=== PATIENT | male | born 2005 | race Caucasian/White ===

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

== ENCOUNTER 2023-02-24 22:00 | Emergency (ER) | payer OTHER, SELFPAY ==
[2023-02-24 22:00] VITALS: BP 123/83; PULSE 69; RESP 16; TEMP 36.8; O2SAT 99; BMI 19.8
--- NOTE | 2023-02-24 22:08 | XR_ITS ---
PROCEDURE INFORMATION: Exam: XR Chest Exam date and time: 02/24/2023 10:18 PM Age: 17 years old Clinical indication: Sternal or substernal pain; Additional info: Cp TECHNIQUE: Imaging protocol: Radiologic exam of the chest. Views: 1 view. Total images: 1 COMPARISON: CR XR CHEST 2V 12/21/2022 12:23 AM FINDINGS: Lungs: Nonspecific hyperinflation. No consolidation. No pulmonary vascular congestion or edema. Pleural spaces: Unremarkable. No pleural effusion. No pneumothorax. Heart/Mediastinum: Unremarkable. No cardiomegaly. No mediastinal widening or hilar enlargement. Bones/joints: Unremarkable. IMPRESSION: 1. No radiographically acute cardiopulmonary process. 2. Nonspecific hyperinflation from depth of inspiration versus air trapping/reactive airway disease.
[2023-02-24 22:13] LABS: Basophils % 0.5 % (0.1-2.0); Eosinophils # 0.2 K/mm3 (0.0-0.4); Eosinophils % 3.1 % (0.1-12.0); Hematocrit 53.1 % (42.0-52.0); Hemoglobin 17.8 g/dL (14.1-18.0); Lymphocytes # 1.8 K/mm3 (0.7-4.5); Lymphocytes % 23.5 % (10-50); Mean Corpuscular HGB Conc 33.4 g/dL (31.8-35.4); Mean Corpuscular Hemoglobin 28.8 pg (27.0-31.2); Mean Corpuscular Volume 86.2 fl (80-94); Monocytes # 0.4 K/mm3 (0.1-1.0); Monocytes % 4.7 % (1.7-9.3); Neutrophils # 5.2 K/mm3 (1.8-7.8); Neutrophils % 68.2 % (37.0-80.0); Platelet Count 233 K/mm3 (142-424); Red Blood Count 6.16 M/mm3 (4.60-6.20); Red Cell Distribution Width 12.7 % (11.5-17.5); White Blood Count 7.6 K/mm3 (4.5-13.0)
[2023-02-24 22:21] LABS: Alanine Aminotransferase 26 U/L (12-78); Albumin Level 5.4 g/dl (3.5-5.0); Albumin/Globulin Ratio 2.1 (1.1-1.8); Alkaline Phosphatase 114 U/L (38-126); Anion Gap 14.3 mEq/L (5-15); Aspartate Amino Transferase 35 U/L (17-59); Bilirubin,Total 0.5 mg/dl (0.2-1.3); Blood Urea Nitrogen 15 mg/dl (9-20); Calcium 9.7 mg/dl (8.4-10.2); Carbon Dioxide 27 mmol/L (22.0-30.0); Chloride 106 mmol/L (98-107); Creatinine Clearance Estimated 110 mL/min (50-200); Estimated Glomerular Filt Rate 109 ml/min (>60); GFR (African American) 132 ML/MIN (>60); Globulin 2.6 g/dL (1.3-3.2); Glucose 93 mg/dl (74-100); Potassium 4.3 mmoL/L (3.5-5.1); Sodium 143 mmol/L (136-145)
[2023-02-24 22:30] VITALS: BP 126/82; PULSE 96; RESP 18; O2SAT 98
[2023-02-24 22:35] LABS: Troponin I < 0.01 ng/ml (0.00-0.034)
--- NOTE | 2023-02-24 22:44 | ECG_ITS ---
APPROVED REPORT Exam: Resting ECG HR:104 bpm ECG Measurements Heart Rate 104 AXES SD 140 P 79 QRSd 79 QRS 92 QT 326 T 77 QTc 386 Conclusion SINUS TACHYCARDIA BORDERLINE RIGHT AXIS DEVIATION [QRS AXIS > 90] ABNORMAL RHYTHM ECG UNCONFIRMED REPORT Electronically signed by : William Lao MD 02/25/2023 17:41:09
--- NOTE | 2023-02-24 23:15 | HMH.EDGENADL ---
Discharge Plan Disposition Patient Disposition: Home, Self-Care Condition: Good Chief Complaint: Chest Pain Prescriptions Prescriptions: No Action No Known Home Medications Referrals Follow up/Referrals: William Lao MD [Primary Care Provider] - See instructions Clinical Impressions Clinical Impression: Chest pain, musculoskeletal Instructions Patient Instructions: DI for Chest Pain, DI for Atypical Chest Pain Discharge ED Provider: Trisha Mckeon General Adult HPI General Chief complaint: Chest Pain Stated complaint: CP Time Seen by Provider: 02/24/23 22:33 Mode of Arrival: Ambulatory Source of Information: Patient Limitations: No Limitations Description of Symptoms (Recalled from ER Triage Doc. by RN): pt c/o chest pain and heaviness with radating down both arms that started prior to arrival History of Present Illness HPI narrative: Patient is otherwise healthy who presents to the ED with complaints of chest pain. Patient has had for the past several months, he has been intermittently experiencing the chest pain in the center of his chest which she describes as a sharp, pressure-like sensation. She notes that the chest pain radiates into bilateral upper extremities and has some associated dizziness and lightheadedness with. Patient notes that tonight, he woke up and was having severe chest pain. At this time, patient was brought to the ED for evaluation. 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 Patient denies any prior cardiac history. Related Data Home Medications Medication Instructions Recorded Confirmed No Known Home Medications 08/11/22 12/20/22 Allergies Allergy/AdvReac Type Severity Reaction Status Date / Time azithromycin [From ZITHROMAX] Allergy Mild Verified 09/23/22 10:55 [facility] Disclaimer: The information contained in this section may have been updated after the patient was seen, as this information can be updated by other users. Medical History (Updated 02/24/23 @ 23:21 by Trisha Mckeon MD) Abnormal electrocardiogram [ECG] [EKG] Abnormal stress test Family history of ischemic heart disease Family history of valvular heart disease No significant past medical history No significant past medical history No significant past medical history Family History (Updated 10/05/22 @ 08:44 by Joselyn Bates RN) Other Family history of kidney stone Social History (Updated 10/05/22 @ 08:44 by Joselyn Bates RN) Smoking Status: Current every day smoker alcohol intake: never substance use type: denies use current occupational status: employed and unemployed Travel in the last 8 weeks: None household members: family ROS Obtained: Yes All systems reviewed & no additional complaints except as documented Physical Exam General General appearance: alert and in no apparent distress Head Head exam: atraumatic, normocephalic and normal inspection Eye Eye exam: Present normal appearance, PERRL and EOMI; Absent scleral icterus or nystagmus ENT ENT exam: Present normal exam, mucous membranes moist and normal external ear exam Neck Neck exam: Present normal inspection, full ROM and trachea midline Chest Chest inspection: Present normal inspection, symmetric chest wall rise and tenderness (Central chest wall tenderness) Respiratory Respiratory exam: Present normal lung sounds bilaterally; Absent respiratory distress, wheezes or accessory muscle use Cardiovascular Cardiovascular exam: Present regular rate, normal rhythm and normal heart sounds Abdominal Exam Abdominal exam: Present soft; Absent distention, tenderness, guarding, rebound, rigidity, trauma, ascites or pulsatile mass exam: Present deferred Extremities Exam Extremities exam: Present normal inspection and full ROM; Absent tenderness Back Exam Back exam: Present normal inspection and full ROM; Absent tenderness Neuro
--- NOTE | 2023-02-24 23:29 | PC.NURSE ---
Rounded on pt and updated pt and mother on POC
[2023-02-24 23:44] VITALS: BP 126/82; PULSE 93; RESP 16; TEMP 36.9; O2SAT 98
== END 2023-02-24 23:53 | disposition home or self-care (01) ==
PROVIDERS: Emergency Provider Emergency Medicine; PCP Internal Medicine Adolescent Medicine
DX: R07.89 Other chest pain (principal); M79.601 Pain in right arm; M79.602 Pain in left arm; F17.200 Nicotine dependence, unspecified, uncomplicated
CPT/HCPCS: 71045; 80053; 84484; 85025; 93005; 96374; 99285

== ENCOUNTER 2023-03-04 22:20 | Emergency (ER) | payer OTHER, SELFPAY ==
[2023-03-04 22:22] VITALS: BP 118/78; PULSE 112; RESP 20; TEMP 37; O2SAT 98; BMI 17.6
[2023-03-04 22:25] VITALS: BP 118/78; PULSE 114; O2SAT 98
[2023-03-04 22:35] LABS: POC Glucose,Bedside 104 (70-110)
--- NOTE | 2023-03-04 22:36 | ECG_ITS ---
APPROVED REPORT Exam: Resting ECG HR:110 bpm ECG Measurements Heart Rate 110 AXES MN 128 P 83 QRSd 85 QRS 93 QT 315 T 72 QTc 380 Conclusion SINUS TACHYCARDIA BORDERLINE RIGHT AXIS DEVIATION [QRS AXIS > 90] ABNORMAL RHYTHM ECG UNCONFIRMED REPORT Electronically signed by : William Lao MD 03/05/2023 12:42:30
--- NOTE | 2023-03-04 22:39 | PC.NURSE ---
Pt Glucose 104
[2023-03-04 23:00] VITALS: PULSE 122; O2SAT 99
[2023-03-04 23:15] VITALS: PULSE 112; O2SAT 97
--- NOTE | 2023-03-04 23:23 | HMH.EDGENADL ---
Discharge Plan Disposition Patient Disposition: Home, Self-Care Condition: Good Prescriptions Prescriptions: No Action Vyvanse 40 mg Capsule 40 mg PO DAILY Referrals Follow up/Referrals: William Lao MD [Primary Care Provider] - See instructions Activity Restrictions/Add. Instructions Additional Instructions/Restrictions: Please follow-up with your primary care provider. Please return to the emergency department if you develop any new or worsening symptoms or become concerned for your health. Please remain off work and avoid exertion for the next couple of days. Please push fluids as much as possible and maintain hydration at home. Clinical Impressions Clinical Impression: Acute dehydration, Tremor of both hands, Elevated serum free T4 level Rhabdomyolysis Qualifiers: Rhabdomyolysis type: non-traumatic Qualified Code(s): M62.82 - Rhabdomyolysis Instructions Patient Instructions: DI for Rhabdomyolysis Discharge ED Provider: Bhupinder Jesus Adult HPI General Chief complaint: Extremity Problem,Nontraumatic Stated complaint: shacking, weakness, dizzy Time Seen by Provider: 03/04/23 23:00 Mode of Arrival: Wheelchair Source of Information: Patient Limitations: No Limitations Description of Symptoms (Recalled from ER Triage Doc. by RN): Pt experienced a sudden onset of shaking in his upper body. Pt recently switched ADHD meds from Atomoxetine to Vivance. Pt devleoped immediate chest pain and bilateral numbness in his hands while IV being placed. History of Present Illness HPI narrative: 17-year-old male history of frequent chest pain, extensively worked up by cardiology in clinic, presents with abnormal episode at home today. 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 He reports that he was feeling otherwise normal, may have been dehydrated. Approximately 1 hour prior to my initial evaluation patient was seen by his mother and he reported feeling abnormal. Mom reports that he was looking shaky though talking normally. He then collapsed into her arms, was still talking/mumbling per mom. Patient reports reports that he feels like he blacked out, mom reports that he did not lose consciousness. Patient denies any significant chest pain at the time, reports some dizziness. A few days ago he changed from atomoxetine to Vyvanse for his ADHD. He reports that he took his appropriate dose this morning, 40 mg. Denies any tobacco use, any recent caffeine intake, denies any drug or alcohol use. No recent fever or illness. Patient reports that he has been otherwise healthy, takes no other medications. Related Data Home Medications Medication Instructions Recorded Confirmed lisdexamfetamine 40 mg capsule 40 mg PO DAILY ADHD 03/04/23 03/04/23 (Vyvanse) Allergies Allergy/AdvReac Type Severity Reaction Status Date / Time azithromycin [From ZITHROMAX] Allergy Mild Verified 09/23/22 10:55 [facility] Disclaimer: The information contained in this section may have been updated after the patient was seen, as this information can be updated by other users. Medical History (Updated 03/05/23 @ 00:11 by Bhupinder Jesus MD) Abnormal electrocardiogram [ECG] [EKG] Abnormal stress test Family history of ischemic heart disease Family history of valvular heart disease No significant past medical history No significant past medical history No significant past medical history Family History (Updated 10/05/22 @ 08:44 by Joselyn Bates RN) Other Family history of kidney stone Social History (Updated 10/05/22 @ 08:44 by Joselyn Bates RN) Smoking Status: Never smoker alcohol intake: never substance use type: denies use current occupational status: employed and unemployed Travel in the last 8 weeks: None household members: family ROS Obtained: Yes All systems reviewed & no additional complaints except as documented Physical Exam General Gen
[2023-03-04 23:24] LABS: Basophils % 0.4 % (0.1-2.0); Eosinophils % 0.3 % (0.1-12.0); Hematocrit 48.2 % (42.0-52.0); Hemoglobin 15.9 g/dL (14.1-18.0); Lymphocytes # 1.8 K/mm3 (0.7-4.5); Lymphocytes % 19.8 % (10-50); Mean Corpuscular HGB Conc 33.1 g/dL (31.8-35.4); Mean Corpuscular Hemoglobin 28.3 pg (27.0-31.2); Mean Corpuscular Volume 85.6 fl (80-94); Monocytes # 0.6 K/mm3 (0.1-1.0); Monocytes % 6.5 % (1.7-9.3); Neutrophils # 6.6 K/mm3 (1.8-7.8); Platelet Count 246 K/mm3 (142-424); Red Blood Count 5.63 M/mm3 (4.60-6.20); Red Cell Distribution Width 12.4 % (11.5-17.5)
[2023-03-04 23:28] LABS: Alanine Aminotransferase 26 U/L (12-78); Albumin Level 5.1 g/dl (3.5-5.0); Alkaline Phosphatase 115 U/L (38-126); Anion Gap 16.4 mEq/L (5-15); Aspartate Amino Transferase 53 U/L (17-59); Bilirubin,Total 1.2 mg/dl (0.2-1.3); Blood Urea Nitrogen 15 mg/dl (9-20); Calcium 9.4 mg/dl (8.4-10.2); Carbon Dioxide 26 mmol/L (22.0-30.0); Chloride 102 mmol/L (98-107); Creatine Kinase 1097 U/L (55-170); Creatinine Clearance Estimated 90 mL/min (50-200); Estimated Glomerular Filt Rate 86 ml/min (>60); GFR (African American) 104 ML/MIN (>60); Globulin 2.6 g/dL (1.3-3.2); Glucose 93 mg/dl (74-100); Magnesium 1.9 mg/dl (1.6-2.3); Potassium 3.4 mmoL/L (3.5-5.1); Sodium 141 mmol/L (136-145); Total Protein,Serum 7.7 g/dl (6.3-8.2)
[2023-03-04 23:30] VITALS: PULSE 109; O2SAT 97
[2023-03-04 23:46] LABS: T4 (Thyroxine) 13.4 ug/dl (5.53-11.0)
[2023-03-04 23:59] LABS: Thyroid Stimulating Hormone 0.62 uIU/mL (0.465-4.68)
[2023-03-05 00:07] VITALS: BP 118/78; PULSE 105; RESP 16; TEMP 36.8
== END 2023-03-05 00:30 | disposition home or self-care (01) ==
PROVIDERS: Emergency Medicine; Emergency Provider Emergency Medicine; PCP Internal Medicine Adolescent Medicine
DX: M62.82 Rhabdomyolysis (principal); E86.0 Dehydration; R00.0 Tachycardia, unspecified; F90.9 Attention-deficit hyperactivity disorder, unspecified type
CPT/HCPCS: 80053; 82550; 82962; 83735; 84436; 84443; 85025; 93005; 93041; 96360; 99285

== ENCOUNTER 2023-03-05 14:28 | Observation (INO) | payer OTHER, SELFPAY ==
[2023-03-05] VITALS (7 sets, daily range): BP systolic 120–126; BP diastolic 51–91; PULSE 100–117; RESP 12–20; TEMP 36.3–37.3; O2SAT 97–100; BMI 17.6; BMI 16.2
--- NOTE | 2023-03-05 14:39 | HMH.EDGENADL ---
Discharge Plan Disposition Patient Disposition: Admitted Condition: Fair Clinical Impressions Clinical Impression: Tremor Adverse drug effect Qualifiers: Encounter type: initial encounter Qualified Code(s): T50.905A - Adverse effect of unspecified drugs, medicaments and biological substances, initial encounter Rhabdomyolysis Qualifiers: Rhabdomyolysis type: non-traumatic Qualified Code(s): M62.82 - Rhabdomyolysis Discharge ED Provider: Joaquin Quinn General Adult HPI General Chief complaint: Weakness Stated complaint: Tremors Time Seen by Provider: 03/05/23 14:32 History of Present Illness HPI narrative: Patient is a 17-year-old male with history of ADHD presenting to the emergency department with tremors, difficulty ambulating. History was conducted with the patient as well as the mother of the patient at bedside. Mother reports that he was recently given a prescription for 40 mg of Vyvanse which he started taking on . Patient was evaluated in the emergency department last night with tremors and was found to have an elevated CK level. However, patient had improvement in symptoms and was ultimately discharged home. Patient once again took Vyvanse this morning, has significant worsening of shaking in the bilateral upper extremities, feelings of weakness in the bilateral lower extremities and difficulty ambulating. Because of this, patient was brought back into the emergency department. Patient was very anxious, hyperventilating at the time my initial evaluation, is reporting abnormal sensation in the bilateral upper extremities. He denies any chest pain, shortness of breath, difficulty breathing, fever, chills, nausea, vomiting, abdominal pain. Denies any episodes of syncope. Denies taking any other medications. Denies taking too many of these pills this morning. Denies any recent illnesses. Related Data Home Medications Medication Instructions Recorded Confirmed lisdexamfetamine 40 mg capsule 40 mg PO DAILY ADHD 03/04/23 03/04/23 (Vyvanse) Allergies Allergy/AdvReac Type Severity Reaction Status Date / Time azithromycin [From ZITHROMAX] Allergy Mild Verified 09/23/22 10:55 [facility] Disclaimer: The information contained in this section may have been updated after the patient was seen, as this information can be updated by other users. Medical History (Updated 03/05/23 @ 17:04 by Finn Bray MD) Abnormal electrocardiogram [ECG] [EKG] Abnormal stress test Family history of ischemic heart disease Family history of valvular heart disease No significant past medical history No significant past medical history No significant past medical history Family History (Updated 10/05/22 @ 08:44 by Joselyn Bates RN) Other Family history of kidney stone Social History (Updated 10/05/22 @ 08:44 by Joselyn Bates RN) Smoking Status: Never smoker alcohol intake: never substance use type: denies use current occupational status: employed and unemployed Travel in the last 8 weeks: None household members: family ROS Obtained: Yes All systems reviewed & no additional complaints except as documented Physical Exam General General appearance: alert and anxious Head Head exam: atraumatic and normocephalic ENT ENT exam: Present normal exam Neck Neck exam: Present full ROM Chest Chest inspection: Present normal inspection and symmetric chest wall rise Respiratory Respiratory exam: Present normal lung sounds bilaterally; Absent respiratory distress or accessory muscle use Cardiovascular Cardiovascular exam: Present normal rhythm and tachycardia; Absent regular rate Abdominal Exam Abdominal exam: Present soft; Absent distention, tenderness, guarding or rebound Extremities Exam Extremities exam: Present normal inspection and full ROM Neurological Exam Neurological exam: Present alert, oriented X3, CN II-XII intact, motor sensory deficit (Patient is able to lift his leg off
[2023-03-05 14:43] LABS: Basophils % 0.4 % (0.1-2.0); Eosinophils # 0.1 K/mm3 (0.0-0.4); Hematocrit 48.1 % (42.0-52.0); Hemoglobin 16.8 g/dL (14.1-18.0); Lymphocytes # 1.2 K/mm3 (0.7-4.5); Mean Corpuscular HGB Conc 34.8 g/dL (31.8-35.4); Mean Corpuscular Volume 86.2 fl (80-94); Monocytes # 0.3 K/mm3 (0.1-1.0); Monocytes % 6.2 % (1.7-9.3); Neutrophils # 2.9 K/mm3 (1.8-7.8); Neutrophils % 64.4 % (37.0-80.0); Platelet Count 226 K/mm3 (142-424); Red Blood Count 5.58 M/mm3 (4.60-6.20); Red Cell Distribution Width 12.6 % (11.5-17.5); White Blood Count 4.6 K/mm3 (4.5-13.0)
[2023-03-05 14:50] LABS: Chloride 103 mmol/L (98-107); Potassium 3.6 mmoL/L (3.5-5.1); Sodium 142 mmol/L (136-145)
[2023-03-05 14:52] LABS: Blood Urea Nitrogen 14 mg/dl (9-20); Creatinine Clearance Estimated 124 mL/min (50-200); Estimated Glomerular Filt Rate 125 ml/min (>60); GFR (African American) 151 ML/MIN (>60)
[2023-03-05 14:53] LABS: Alanine Aminotransferase 28 U/L (12-78); Albumin/Globulin Ratio 1.8 (1.1-1.8); Alkaline Phosphatase 120 U/L (38-126); Anion Gap 17.6 mEq/L (5-15); Aspartate Amino Transferase 50 U/L (17-59); Calcium 9.5 mg/dl (8.4-10.2); Carbon Dioxide 25 mmol/L (22.0-30.0); Creatine Kinase 835 U/L (55-170); Globulin 2.8 g/dL (1.3-3.2); Glucose 94 mg/dl (74-100); Total Protein,Serum 7.8 g/dl (6.3-8.2)
[2023-03-05 14:58] LABS: C-Reactive Protein 1.1 mg/L (0-4)
[2023-03-05 15:12] LABS: T4 (Thyroxine) 13.3 ug/dl (5.53-11.0)
[2023-03-05 15:26] LABS: Thyroid Stimulating Hormone 0.44 uIU/mL (0.465-4.68)
[2023-03-05 15:36] LABS: Erythrocyte Sedimentation Rate 1 mm/hr (0-15)
--- NOTE | 2023-03-05 15:50 | PC.NURSE ---
ER MD Bray spoke with poison control, waiting on a call back
--- NOTE | 2023-03-05 16:12 | PC.NURSE ---
requested a lunch tray from dietary.
--- NOTE | 2023-03-05 16:18 | PC.NURSE ---
Dietary brought lunch tray to patient; family at BS
--- NOTE | 2023-03-05 16:21 | PC.NURSE ---
ED MD AT BEDSIDE TO REEVALUATE PT
--- NOTE | 2023-03-05 16:45 | PC.NURSE ---
ED SPEAKING WITH DR ARNOLD FOR ADMISSION
--- NOTE | 2023-03-05 16:54 | PC.NURSE ---
GRISELDA CAMACHO SPEAKING WITH DR BELL
--- NOTE | 2023-03-05 17:00 | PC.NURSE ---
notified warehouser of admission
--- NOTE | 2023-03-05 17:03 | PC.NURSE ---
1701 pt assigned to room 207, Observation patient for adverse medication effect.
--- NOTE | 2023-03-05 17:12 | PC.NURSE ---
REPORT GIVEN TO NASIM LAGUNAS
[2023-03-05 17:45] LABS: Microscopic, Urine URINE MICROSCOPIC (MICROSCOPIC)
[2023-03-05 17:46] LABS: Appearance,Urine CLEAR (Clear); Bilirubin,Urine Negative (Negative); Blood, Urine TRACE-I (Negative); Color,Urine YELLOW (Yellow); Glucose,Urine (UA) Negative (Negative); Ketones,Urine 1+ (Negative); Leukocyte Esterase,Urine Negative (Negative); Nitrate,Urine Negative (Negative); Protein,Urine Negative (Negative)
[2023-03-05 17:57] LABS: RBC,Urine Occasional #/hpf (0-3); Squamous Epithelial Cell,Urine Occasional #/hpf (0-5); WBC,Urine Occasional #/hpf (0-3)
[2023-03-05 17:58] LABS: Barbiturates Screen,Urine Negative ng/ml (<200)
[2023-03-05 17:59] LABS: Amphetamine/Metha Screen,Urine Positive ng/ml (<1000); Benzodiazepines Screen,Urine Negative ng/ml (<200)
[2023-03-05 18:00] LABS: Cannabinoid Screen,Urine Negative ng/ml (<50)
[2023-03-05 18:01] LABS: Cocaine Screen,Urine Negative ng/ml (<300); Methadone Screen,Urine Negative ng/ml (<300)
[2023-03-05 18:02] LABS: Opiate Screen,Urine Negative ng/ml (<300)
[2023-03-05 18:03] LABS: Phencyclidine Screen,Urine Negative ng/ml (<25)
--- NOTE | 2023-03-05 18:47 | EXP.HP ---
History of Present Illness *Admission Date: 03/05/23 *Reason for visit:: tremor, weakness *History of present illness: Wenceslao is a pleasant 17-year-old male who presented to the ER for the second day in a row after developing significant tremor, weakness, tachycardia with recent adjustments in his home medications. States that he has had some chest tightness but no juni chest pain. No shortness of breath, nausea, confusion, diarrhea or vomiting. He is felt very jittery with shaking in his arms and legs. States that he was recently resumed on ADHD meds including atomoxetine back in January. That medication made him irritable so he was switched to lisdexamfetamine on 03/01. He previously been on this medication years ago with fair tolerance. After initiating this medication he has had increased tremors and shaking over the past 3 to 4 days. On arrival to the ER, found to have elevated CK greater than 800. Of note CK yesterday in the ER was greater than 1000. Initiated on IV fluid bolus. Medicine was consulted for admission to monitor overnight with serial labs in the morning and monitoring for improvement in neurologic symptoms. After arriving to the floor, patient is alert and oriented. Afebrile but still tachycardic. Blood pressure within normal range. Family at bedside. Questions answered. [facility] Disclaimer: The information contained in this section may have been updated after the patient was seen, as this information can be updated by other users. Medical History Abnormal electrocardiogram [ECG] [EKG] Abnormal stress test Family history of ischemic heart disease Family history of valvular heart disease Family History Family history of kidney stone Social History Smoking Status: Never smoker alcohol intake: never substance use type: denies use current occupational status: employed Travel in the last 8 weeks: None household members: family Review of Systems Review of Systems Review of systems (narrative): 14 point review of systems performed, pertinent positives and negatives as per HPI Meds Home Medications and Allergies Home Medications Medication Instructions Recorded Confirmed Type lisdexamfetamine 40 mg capsule 40 mg PO DAILY ADHD 03/04/23 03/05/23 History (Vyvanse) New Prescriptions to Start Prescriptions: Allergies Allergy/AdvReac Type Severity Reaction Status Date / Time azithromycin [From ZITHROMAX] Allergy Mild Verified 09/23/22 10:55 Exam Data for Last 24 hours Vital signs and Labs for Last 24 Hours: Temp Pulse Resp BP Pulse Ox O2 Del Method 99.1 F 105 H 18 120/51 L 99 Room Air 03/05/23 17:38 03/05/23 17:38 03/05/23 17:38 03/05/23 17:38 03/05/23 17:38 03/05/23 17:38 Laboratory Results - last 24 hr 03/05/23 14:32: WBC 4.6 D, RBC 5.58, Hgb 16.8, Hct 48.1, MCV 86.2, MCH 30.0, MCHC 34.8, RDW 12.6, Plt Count 226, MPV 7.0 L, Neut % (Auto) 64.4, Lymph % (Auto) 27.0, [place] % (Auto) 6.2, Eos % (Auto) 2.0, Baso % (Auto) 0.4, Neut # (Auto) 2.9, Lymph # (Auto) 1.2, [place] # (Auto) 0.3, Eos # (Auto) 0.1, Baso # (Auto) 0.0, ESR 1, Sodium 142, Potassium 3.6, Chloride 103, Carbon Dioxide 25, Anion Gap 17.6 H, BUN 14, Creatinine 0.80 D, Estimated Creat Clear 124, Estimated GFR 125, Est GFR ( Amer) 151 D, Glucose 94, Calcium 9.5, Total Bilirubin 1.0, AST 50, ALT 28, Alkaline Phosphatase 120, Total Creatine Kinase 835 H*, C-Reactive Protein 1.1, Total Protein 7.8, Albumin 5.0, Globulin 2.8, Albumin/Globulin Ratio 1.8, TSH 0.44 L D, Thyroxine (T4) 13.3 H 03/05/23 15:00: Lactate 1.0 03/05/23 17:39: Urine Color Yellow, Urine Appearance Clear, Urine pH 7.0, Ur Specific Burns 1.010, Urine Protein Negative, Urine Glucose (UA) Negative, Urine Ketones 1+, Urine Blood Trace-i, Urine Nitrate Negative, Urine Bilirubin Negative,
[2023-03-05 22:12] LABS: INR 1.05 (0.9-1.1); Prothrombin Time 11.3 seconds (10.1-12.5)
[2023-03-05 22:23] LABS: D-Dimer 0.46 ug/mL (0.0-0.5)
[2023-03-06] VITALS: BP 133/74; PULSE 106; RESP 20; TEMP 36.5; O2SAT 99
[2023-03-06 04:00] VITALS: BP 116/63; PULSE 112; RESP 20; TEMP 36.4; O2SAT 98; BMI 17.4
[2023-03-06 07:34] LABS: Eosinophils # 0.2 K/mm3 (0.0-0.4); Monocytes # 0.4 K/mm3 (0.1-1.0)
[2023-03-06 07:36] LABS: Anion Gap 8.8 mEq/L (5-15); Blood Urea Nitrogen 8 mg/dl (9-20); Calcium 8.5 mg/dl (8.4-10.2); Carbon Dioxide 25 mmol/L (22.0-30.0); Chloride 111 mmol/L (98-107); Creatine Kinase 388 U/L (55-170); Creatinine Clearance Estimated 125 mL/min (50-200); Estimated Glomerular Filt Rate 125 ml/min (>60); GFR (African American) 151 ML/MIN (>60); Glucose 93 mg/dl (74-100); Potassium 3.8 mmoL/L (3.5-5.1); Sodium 141 mmol/L (136-145)
[2023-03-06 07:41] LABS: Basophils % 0.6 % (0.1-2.0); Eosinophils % 4.5 % (0.1-12.0); Hematocrit 43.8 % (42.0-52.0); Lymphocytes # 2.2 K/mm3 (0.7-4.5); Lymphocytes % 43.4 % (10-50); Mean Corpuscular HGB Conc 32.6 g/dL (31.8-35.4); Mean Corpuscular Volume 85.9 fl (80-94); Mean Platelet Volume 8.2 fl (7.4-10.4); Monocytes % 7.2 % (1.7-9.3); Neutrophils # 2.2 K/mm3 (1.8-7.8); Neutrophils % 44.3 % (37.0-80.0); Platelet Count 196 K/mm3 (142-424); Red Cell Distribution Width 12.8 % (11.5-17.5)
[2023-03-06 07:43] LABS: Hemoglobin 14.3 g/dL (14.1-18.0)
[2023-03-06 07:54] VITALS: BP 104/54; PULSE 77; RESP 18; TEMP 37; O2SAT 98
[2023-03-06 08:00] VITALS: PULSE 72
--- NOTE | 2023-03-06 08:11 | HMH.PHAINT1 ---
Pharmacy Intervention Comments: MEDICATION RECONCILIATION COMPLETED ON PATIENT USING EXTERNAL FILL HISTORY FROM PHARMACY AND [facility]DO REPORT. -HENOK CAMPBELL, PAYTOND
--- NOTE | 2023-03-06 09:28 | EXP.DC.SUM ---
General Admission date:: 03/05/23 Discharge date: 03/06/23 HPI HPI HPI: Wenceslao is a pleasant 17-year-old male who presented to the ER for the second day in a row after developing significant tremor, weakness, tachycardia with recent adjustments in his home medications. States that he has had some chest tightness but no juni chest pain. No shortness of breath, nausea, confusion, diarrhea or vomiting. He is felt very jittery with shaking in his arms and legs. States that he was recently resumed on ADHD meds including atomoxetine back in January. That medication made him irritable so he was switched to lisdexamfetamine on 03/01. He previously been on this medication years ago with fair tolerance. After initiating this medication he has had increased tremors and shaking over the past 3 to 4 days. On arrival to the ER, found to have elevated CK greater than 800. Of note CK yesterday in the ER was greater than 1000. Initiated on IV fluid bolus. Medicine was consulted for admission to monitor overnight with serial labs in the morning and monitoring for improvement in neurologic symptoms. After arriving to the floor, patient is alert and oriented. Afebrile but still tachycardic. Blood pressure within normal range. Family at bedside. Questions answered. Hospital Course Hospital Course Hospital Course: 17-year-old male with recent changes to his ADHD medication, presents with weakness, tremor, minor muscle aches. Admitted for rhabdomyolysis and weakness. Serial labs showed improvement. Hemodynamically stable. Meeting criteria for discharge from acute care. Problems addressed as follows: Rhabdomyolysis Adverse drug effect Tremor -Transitioned to lisdexamfetamine 4 days ago, has had worsening symptoms since starting medication. CK greater than 800, above thousand day before admission. Hydrated aggressively overnight with improvement in CK to 380 on morning of discharge. Kidney function remained normal with creatinine 1.0. Voiding independently. Tolerating p.o. intake. No significant muscle pain on exam. Recommend continuing to hold stimulant medications. Patient concerned as he still has some tremor on day of discharge. Affect is somewhat anxious. Concern anxiety about his health is a significant component of his tremor. His tremor will resolve during conversation and then come back when he stops talking and is thinking about it. Offered significant reassurance. Extensive conversation about work-ups that have been performed over the past 6 to 9 months evaluating his heart, imaging, labs. Encouraged him to establish with new PCP as he is not comfortable going back to his previous provider. Encouraged him to discuss anxiety with his new provider as it is my judgment that this is a significant component of his somatic symptoms at this time. Patient is hemodynamically stable and no longer needing acute inpatient care. Discharged home with his parents today. All questions answered. Spent 40 minutes in discharge counseling and direct care with patient. Exam Data for Last 24 hours Vital signs and Labs for Last 24 Hours: Temp Pulse Resp BP Pulse Ox O2 Del Method 98.6 F 77 18 104/54 L 98 Room Air 03/06/23 07:54 03/06/23 07:54 03/06/23 07:54 03/06/23 07:54 03/06/23 07:54 03/06/23 07:54 Laboratory Results - last 24 hr 03/05/23 14:32: WBC 4.6 D, RBC 5.58, Hgb 16.8, Hct 48.1, MCV 86.2, MCH 30.0, MCHC 34.8, RDW 12.6, Plt Count 226, MPV 7.0 L, Neut % (Auto) 64.4, Lymph % (Auto) 27.0, [place] % (Auto) 6.2, Eos % (Auto) 2.0, Baso % (Auto) 0.4, Neut # (Auto) 2.9, Lymph # (Auto) 1.2, [place] # (Auto) 0.3, Eos # (Auto) 0.1, Baso # (Auto) 0.0, ESR 1, PT 11.3, INR 1.05, D-Dimer 0.46, Sodium 142, Potassium 3.6, Chloride 103, Carbon Dioxide 25, Anion Gap 17.6 H, BUN 14, Creatinine 0.80 D, Estimated Creat Clear 124, Estimated GFR 125, Est GFR ( Amer) 151 D, Glucose 94, Calcium 9.5, Total Bilirubin 1.0, AST 50, ALT 28, Alkaline [place]
--- NOTE | 2023-03-06 10:30 | PC.NURSE ---
PT CONCERNED WITH RETURNING HOME. DR ARNOLD CONTACTED AND MADE AWARE.
[2023-03-06 11:47] VITALS: BP 144/71; PULSE 109; RESP 18; TEMP 36.3; O2SAT 99
--- NOTE | 2023-03-07 13:20 | CARE MANAGER ---
Spoke with patient's father related to hospital discharge. He states he is doing better. He has scheduled appointment with new PCP Dr. Bunn tomorrow. He did stop taking the Vyvanse and denies any questions. NASIM Wilhelm
== END 2023-03-06 13:45 | disposition home or self-care (01) ==
LOC: ER 17:04 → 2ND 18:10
PROVIDERS: Emergency Medicine; Nurse Practitioner Family; Admitting Provider Internal Medicine Adolescent Medicine; Emergency Provider Emergency Medicine; PCP Internal Medicine Adolescent Medicine; Visit Provider Internal Medicine Adolescent Medicine
DX: G25.1 Drug-induced tremor (principal); M62.82 Rhabdomyolysis; T50.905A Adverse effect of unspecified drugs, medicaments and biological substances, initial encounter; T43.625A Adverse effect of amphetamines, initial encounter
CPT/HCPCS: 36415; 80048; 80053; 80305; 81001; 82550; 83605; 84436; 84443; 85025; 85378; 85610; 85651; 86140; 99285; G0378

== ENCOUNTER → 2023-03-08 12:53 | Outpatient (CLI) | payer OTHER, SELFPAY ==
[2023-03-08 14:25] LABS: Free T4 (Free Thyroxine) 1.07 ng/dl (0.78-2.19)
[2023-03-08 21:34] LABS: Thyroid Stimulating Hormone 0.67 uIU/mL (0.465-4.68)
[2023-03-09 11:48] LABS: Triiodothyronine (T3) Total 129 ng/dL (71-180)
== END ==
PROVIDERS: Visit Provider Internal Medicine
DX: R53.83 Other fatigue (principal); R79.89 Other specified abnormal findings of blood chemistry
CPT/HCPCS: 36415; 84439; 84443; 84480

== ENCOUNTER 2023-09-14 00:18 | Emergency (ER) | payer OTHER, SELFPAY ==
[2023-09-14 00:20] VITALS: BP 146/105; PULSE 90; RESP 20; TEMP 36.7; O2SAT 98; BMI 20.2
--- NOTE | 2023-09-14 00:28 | ED_ITS ---
Discharge Plan Disposition Patient Disposition: Home, Self-Care Condition: Good Prescriptions Prescriptions: No Action No Known Home Medications Referrals Follow up/Referrals: Marino Bunn DO [Primary Care Provider] - See instructions Activity Restrictions/Add. Instructions Additional Instructions/Restrictions: Please follow-up with your primary care provider. Please return to the emergency department if you develop any new or worsening symptoms or become concerned for your health. Clinical Impressions Clinical Impression: Chemical exposure of eye Headache Qualifiers: Headache type: unspecified Headache chronicity pattern: acute headache Discharge ED Provider: Bhupinder Jesus General Adult HPI General Chief complaint: Eye Problems Stated complaint: headache, eyes burning Time Seen by Provider: 09/14/23 00:22 History of Present Illness HPI narrative: 17-year-old male presents with bilateral eye pain and headache after possible chemical exposure. They were cleaning chemicals including bleach and Mr. Santiago in the bathroom and it has been recently cleaned with those chemicals. He s tarted taking a shower and he noticed burning in his eyes and started getting a headache. He denies any direct exposure to the chemicals. Reports his vision is okay. Denies any trauma to the eyes. Related Data Home Medications Medication Instructions Recorded Confirmed No Known Home Medications 08/31/23 08/31/23 Allergies Allergy/AdvReac Type Severity Reaction Status Date / Time azithromycin [From ZITHROMAX] Allergy Mild Verified 08/31/23 11:04 [facility] Disclaimer: The information contained in this section may have been updated after the patient was seen, as this information can be updated by other users. Medical History Abnormal electrocardiogram [ECG] [EKG] Abnormal stress test Family history of ischemic heart disease Family history of valvular heart disease Fatigue Generalized anxiety disorder Surgical History History of placement of ear tubes History of tonsillectomy Family History Other Family history of kidney stone Fatigue Social History Smoking Status: Never smoker years smoked: 1 second hand exposure: No alcohol intake: never counseling given: No substance use type: denies use counseling given: No current occupational status: employed Travel in the last 8 weeks: None adopted: No caregiver/support person: No foster care: No household members: family housing: house lives independently: No marital status: single number of children: 0 number of grandchildren: 0 education level: high school Hx Recent Travel: No caffeine: No physical activity: none working smoke detector in home: Yes fire extinguisher in home: Yes carbon monox detector in home: Yes firearms in home: No do you feel safe at home: Yes victim of physical abuse: No victim of emotional abuse: No victim of sexual abuse: No would you like helpful sources: No ROS Obtained: Yes All systems reviewed & no additional complaints except as documented Physical Exam General General appearance: alert and in no apparent distress Head Head exam: atraumatic and normocephalic Eye Eye exam: Present normal appearance, PERRL and EOMI; Absent conjunctival injection ENT ENT exam: Present normal oropharynx and normal external ear exam Neck Neck exam: Present normal inspection and full ROM Chest Chest inspection: Present normal inspection and symmetric chest wall rise; Absent tenderness Respiratory Respiratory exam: Present normal lung sounds bilaterally; Absent respiratory distress Cardiovascular Cardiovascular exam: Present regular rate and normal rhythm Abdominal Exam Abdominal exam: Present soft; Absent distention, tenderness or guarding Extremities Exam Extremities exam: Present normal inspection; Absent edema or joint swelling Back Exam Back exam: Present normal inspection; Absent tenderness Neurological Exam Neurological exam: Present alert and oriented X3; Absent motor sensory deficit Psychiatric Psychiatric exam: Present normal affect and normal mood Skin Skin exam: Present warm, dry and normal color Lymphatic Lymphatic Findings: no adenopathy Medical Decision Making Medical Records Medical records reviewed: Yes I reviewed the patient's medical records. Baldemar Inquiry Pt receiving controlled substance: No Baldemar was queried for this patient: No Vital Signs: 09/14/23 00:20 09/14/23 00:46 Temperature 98.1 F 98.1 F Temperature Source Oral Oral Pulse Rate 80 Pulse Rate [Right Radial] 90 Respiratory Rate 20 18 Blood Pressure 125/72 Blood Pressure [Right Arm] 146/105 H Blood Pressure Mean [Right Arm] 118 Blood Pressure Source Automatic Cuff Blood Pressure Source [Right Arm] Automatic Cuff Blood Pressure Position Supine Blood Pressure Position [Right Arm] Sitting 02 Sat by Pulse Oximetry 98 Oxygen Delivery Method Room Air Room Air Lab Data Lab results reviewed: Yes I reviewed the patient's lab results. Orders (Tests/Meds): ED MEDICATIONS Discontinued Medications Generic Name Dose Route Start Last Admin Trade Name Urbano PRN Reason Stop Dose Admin Acetaminophen 1,000 mg 09/14/23 00:28 09/14/23 00:41 Acetaminophen 500mg Tab PO 09/14/23 00:29 1,000 mg ONCE ONE Administration Ibuprofen 600 mg 09/14/23 00:28 09/14/23 00:41 Ibuprofen 600 Mg Tablet PO 09/14/23 00:29 600 mg ONCE ONE Administration Medical Decision Narrative: 17-year-old male with no significant past medical history presents with possible chemical exposure to the eyes. He was in the same room as an open container of bleach and Mr. Santiago. His eyes started burning when he took a shower. He denies any direct contact with chemicals. Differential diagnosis includes but limited to acid exposure, base exposure, trauma. on arrival exam shows no conjunctival injection, normal visual acuity. pH paper bilaterally shows normal pH, no evidence of acid-base disturbance. Patient's eyes were copiously irrigated in the eyewash station after which she reported complete symptomatic resolution. Patient was given Tylenol ibuprofen for his headache and discharged in stable condition with return precautions. Procedures Risk/Benefits of Procedure(s) Were Explained: Yes Critical Care Critical Care Time Critical Care Time: No
[2023-09-14] MEDS: ACETAMINOPHEN 500MG TAB 1000 MG PO (00:41)
[2023-09-14] MEDS: IBUPROFEN 600 MG TABLET PO (00:41)
[2023-09-14 00:46] VITALS: BP 125/72; PULSE 80; RESP 18; TEMP 36.7; O2SAT 99
== END 2023-09-14 00:51 | disposition home or self-care (01) ==
PROVIDERS: Emergency Provider Emergency Medicine; PCP Internal Medicine
DX: R51.9 Headache, unspecified (principal); H57.13 Ocular pain, bilateral; T59.4X1A Toxic effect of chlorine gas, accidental (unintentional), initial encounter
CPT/HCPCS: 99283

== ENCOUNTER 2024-09-02 17:48 | Emergency (ER) | payer OTHER, SELFPAY ==
[2024-09-02 17:51] VITALS: BP 132/68; PULSE 102; RESP 16; TEMP 36.8; O2SAT 98; BMI 19.0
[2024-09-02 18:01] VITALS: BP 123/81; O2SAT 95
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
[2024-09-02] MEDS: ACETAMINOPHEN 500MG TAB 1000 MG PO (18:25)
[2024-09-02] MEDS: IBUPROFEN 400 MG TABLET 800 MG PO (18:26)
[2024-09-02] MEDS: METOCLOPRAMIDE 10MG TABLET 10 MG PO (18:26)
[2024-09-02 18:30] VITALS: BP 138/78; PULSE 81; O2SAT 98
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
[2024-09-02 19:00] VITALS: BP 117/74; PULSE 69; O2SAT 98
--- NOTE | 2024-09-02 19:25 | PC.NURSE ---
rounded on patient and assess any needs at this time
[2024-09-02 19:31] VITALS: BP 110/70; PULSE 79; O2SAT 98
[2024-09-02 20:23] VITALS: BP 128/78; PULSE 89; RESP 20; TEMP 36.6; O2SAT 99
== END 2024-09-02 20:25 | disposition home or self-care (01) ==
PROVIDERS: Emergency Provider Emergency Medicine; PCP Internal Medicine
DX: S06.0XAA Concussion with loss of consciousness status unknown, initial encounter (principal); S01.81XA Laceration without foreign body of other part of head, initial encounter; R51.9 Headache, unspecified; R42 Dizziness and giddiness; H53.8 Other visual disturbances; F17.290 Nicotine dependence, other tobacco product, uncomplicated; W20.8XXA Other cause of strike by thrown, projected or falling object, initial encounter; Y93.89 Activity, other specified; Y92.9 Unspecified place or not applicable
CPT/HCPCS: 70450; 70486; 99284

== ENCOUNTER 2024-10-25 22:27 | Emergency (ER) | payer OTHER, SELFPAY ==
--- NOTE | 2024-10-25 22:27 | ECG_ITS ---
APPROVED REPORT Exam: Resting ECG HR:98 bpm ECG Measurements Heart Rate 98 AXES VT 138 P 82 QRSd 81 QRS 89 QT 318 T 66 QTc 373 Conclusion SINUS RHYTHM NORMAL ECG Electronically signed by : CHRISTIAN BARRAZA, 10/27/2024 03:23:26
[2024-10-25 22:28] VITALS: BP 136/87; PULSE 107; RESP 14; TEMP 36.6; O2SAT 98; BMI 19.0
--- NOTE | 2024-10-25 22:30 | PC.NURSE ---
Pt undressed and belongings removed from room and searched for weapons. None found. room cleared and patient in gown
--- NOTE | 2024-10-25 22:45 | PC.NURSE ---
Pt in sinus tachycardia per continuous heart monitor
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
--- NOTE | 2024-10-25 22:53 | XR_ITS ---
PROCEDURE INFORMATION: Exam: XR Chest Exam date and time: 10/25/2024 10:59 PM Age: 19 years old Clinical indication: Dyspnea TECHNIQUE: Imaging protocol: Radiologic exam of the chest. Views: 1 view. COMPARISON: CR XR CHEST PORTABLE 02/24/2023 10:18 PM FINDINGS: Lungs: Redemonstration of background hyperinflation/emphysema. No evidence of consolidative opacities. Pleural spaces: No pleural effusion. No pneumothorax. Heart/Mediastinum: The cardiomediastinal silhouette is stable in appearance. Bones/joints: Unremarkable. IMPRESSION: 1. No evidence of acute radiographic findings in the chest. 2. Redemonstration of hyperinflation/emphysema.
--- NOTE | 2024-10-25 22:53 | PC.NURSE ---
One on one sitter provided due to patient's homicidal and suicidal statements
--- NOTE | 2024-10-25 22:54 | ED_ITS ---
Discharge Plan Disposition Chief Complaint: Chest Pain Prescriptions Prescriptions: No Action metoclopramide HCl [Reglan] 10 mg tablet 10 mg PO Q6H PRN (Reason: nausea and vomiting) Qty: 10 0RF Clinical Impressions Clinical Impression: Chest pain, Homicidal ideation, Suicidal ideation Stand Alone Forms Stand Alone Forms: Transfer Record - ED Print Language Print Language: Indonesian Discharge ED Provider: Bhupinder Jesus General Adult HPI <Kodak Tan MD - Last Filed: 10/25/24 22:59> General Chief complaint: Chest Pain Stated complaint: chest pain Time Seen by Provider: 10/25/24 22:51 Mode of Arrival: Ambulatory Source of Information: Patient Description of Symptoms (Recalled from ER Triage Doc. by RN): pt presents with chest pain that began approx 30 mins ago with no radiation. History of Present Illness HPI narrative: Patient is a 19-year-old male who initially presented to the emergency department under my evaluation and told me that he was having chest pain. States that it started 30 minutes prior to arrival. No radiation. No exertional dyspnea. No diaphoresis. Patient denies any drug use. However police arrived at the same time that the patient arrives as they were given a call for active shooter. They had guns drawn and the description of the suspect was the patient that we are taking care of, [place]. Initially the patient denied being involved in any of this. However a bystander pointed out that the patient was screaming and yelling homicidal and suicidal statements in the parking lot. This is what prompted the call to the police. The patient is currently denying being homicidal or suicidal to me at the moment. Related Data Previous Rx's ?Medication ?Instructions ?Recorded metoclopramide HCl 10 mg tablet 10 mg PO Q6H PRN nausea and 09/02/24 (Reglan) vomiting #10 tabs Allergies Allergy/AdvReac Type Severity Reaction Status Date / Time azithromycin (From ZITHROMAX) Allergy Mild Rash Verified 09/02/24 18:22 PFSH <Kodak Tan MD - Last Filed: 10/25/24 22:59> PFS Disclaimer: The information contained in this section may have been updated after the patient was seen, as this information can be updated by other users. Medical History Generalized anxiety disorder Fatigue Abnormal stress test Family history of valvular heart disease Family history of ischemic heart disease Abnormal electrocardiogram [ECG] [EKG] Surgical History History of tonsillectomy History of placement of ear tubes Family History Other Family history of kidney stone Fatigue Social History Smoking Status: Never smoker years smoked: 1 second hand exposure: No alcohol intake: never counseling given: No substance use type: denies use counseling given: No current occupational status: employed Travel in the last 8 weeks: None adopted: No caregiver/support person: No foster care: No household members: family housing: house lives independently: No marital status: single number of children: 0 number of grandchildren: 0 education level: high school Hx Recent Travel: No caffeine: No physical activity: none working smoke detector in home: Yes fire extinguisher in home: Yes carbon monox detector in home: Yes firearms in home: No do you feel safe at home: Yes victim of physical abuse: No victim of emotional abuse: No victim of sexual abuse: No would you like helpful sources: No Have you lived/traveled outside US in past 30 days?: No Contact w/someone who lives/traveled outside US past 30 days?: No Exposure to someone with infectious disease in past 14 days?: No Do you have a fever (greater than 100.4 F or 38 C)?: No Have you tested positive for COVID-19: No Exposed to someone with COVID-19 in past 14 days?: No Do you have a sore throat?: No Do you have a cough?: No Do you have any weakness?: No Do you have any diarrhea?: No Are you experiencing any unusual bleeding?: No Do you have any muscle aches/pain?: No Do you have any abdominal pain?: No Are you experiencing loss of taste or smell?: No Other Medical History Have you received the Flu Vaccine for this season: No Have you received the Pneumonia Vaccine: No <Kodak Tan MD - Last Filed: 10/25/24 22:59> ROS Obtained: Yes All systems reviewed & no additional complaints except as documented Physical Exam <Kodak Tan MD - Last Filed: 10/25/24 22:59> General General appearance: alert and in no apparent distress Respiratory Respiratory exam: Present normal lung sounds bilaterally Cardiovascular Cardiovascular exam: Present regular rate and normal rhythm Neurological Exam Neurological exam: Present alert and oriented X3 Medical Decision Making <Kdoak Tan MD - Last Filed: 10/25/24 22:59> Medical Records Screening: Per USPSTF and CDC recommendations, given the prevalence of disease in our region, it is our hospital?s policy to screen for HIV and viral Hepatitis for all patients aged 18 and over and those with ongoing risk factors. Baldemar Inquiry Pt receiving controlled substance: No Vital Signs: 10/25/24 22:28 10/25/24 23:00 10/25/24 23:28 Temperature 98 F 98.0 F Temperature Source Oral Oral Pulse Rate 103 H 94 H Pulse Rate [Radial] 107 H Respiratory Rate 14 17 16 Blood Pressure 129/85 129/85 Blood Pressure [Right Arm] 136/87 Blood Pressure Mean 97 Blood Pressure Mean [Right Arm] 103 Blood Pressure Source Automatic Cuff Blood Pressure Position Sitting Blood Pressure Position [Right Arm] Sitting 02 Sat by Pulse Oximetry 98 98 98 Oxygen Delivery Method Room Air Room Air 10/25/24 23:53 Temperature 98.0 F Temperature Source Oral Pulse Rate 96 H Pulse Rate [Radial] Respiratory Rate 16 Blood Pressure 136/86 Blood Pressure [Right Arm] Blood Pressure Mean Blood Pressure Mean [Right Arm] Blood Pressure Source Automatic Cuff Blood Pressure Position Supine Blood Pressure Position [Right Arm] 02 Sat by Pulse Oximetry 97 Oxygen Delivery Method Room Air Lab Data Lab Results 10/25/24 22:30: WBC 6.4, RBC 5.47, Hgb 16.2, Hct 45.7, MCV 83.5, MCH 29.6, MCHC 35.4, RDW 11.2 L, Plt Count 239, MPV 10.2, Neut % (Auto) 53.3, Lymph % (Auto) 27.7, Cotton % (Auto) 9.4 H, Eos % (Auto) 8.2, Baso % (Auto) 1.1, Neut # (Auto) 3.4, Lymph # (Auto) 1.8, Cotton # (Auto) 0.6, Eos # (Auto) 0.5 H, Baso # (Auto) 0.1, Sodium 141, Potassium 3.7, Chloride 106, Carbon Dioxide 25, Anion Gap 13.7, BUN 14, Creatinine 1.00, Estimated Creat Clear 105, Estimated GFR 94, Est GFR ( Amer) 114, Glucose 102 H, Calcium 9.5, Total Bilirubin 0.6, AST 31, ALT 20, Alkaline Phosphatase 74, Troponin I < 0.01, Total Protein 6.9, Albumin 4.8, Globulin 2.1, Albumin/Globulin Ratio 2.3 H, Plasma/Serum Alcohol < 10 10/25/24 23:15: Urine Opiates Screen Negative, Urine Methadone Screen Negative, Ur Barbituates Screen Negative, Ur Phencyclidine Scrn Negative, Ur Amphetamines Screen Negative, U Benzodiazepines Scrn Negative, Urine Cocaine Screen Negative, U Marijuana (THC) Screen Negative 10/25/24 22:30 10/25/24 22:30 Orders (Tests/Meds): ED MEDICATIONS Discontinued Medications Generic Name Dose Route Start Last Admin Trade Name Freq PRN Reason Stop Dose Admin Lactated Ringer's 1,000 mls @ 999 mls/hr 10/25/24 23:00 10/25/24 23:01 Lactated Ringer's 1000 Ml Bag IV 10/26/24 00:00 999 mls/hr .Q1H1M ROSETTE Administration ORDERS Category Date Time Status CXR --portable [XR chest portable] Stat Exams 10/25/24 22:53 Completed CBC w/Auto Diff [Complete Blood Count Auto Diff] Stat Lab 10/25/24 22:30 Completed CMP [Comprehensive Metabolic Panel] Stat Lab 10/25/24 22:30 Completed Ethanol [Ethyl Alcohol] Stat Lab 10/25/24 22:30 Completed Trop I [Troponin I] Stat Lab 10/25/24 22:30 Completed Troponin I Q3H Lab 10/26/24 02:00 Ordered Troponin I Q3H Lab 10/26/24 05:00 Ordered UDS [Drug Screen,Urine] Stat Lab 10/25/24 23:15 Completed Medical Decision Narrative: 19-year-old with above history and physical initially to me telling me he is here for chest pain. Seems to be very low risk we will get an EKG single troponin he is PERC negative on my evaluation. Seems to be very low risk from a chest pain standpoint. However complicating things the police showed up being called for an active shooter situation. To my knowledge there were no shots that were fired. The description of the suspect matches Wenceslao. Additionally there was a bystander to whom I spoke to as well who stated that the patient was screaming profanities and the parking lot stating I am going to fuck you up, going here and shoot everybody and then kill myself. The patient denies saying these things. Police are currently here. At the moment we believe the remainder of the situation is cleared but the patient is currently on a one-to-one hold for possible suicidal and homicidal ideation. Initial workup is initiated. Patient showed up right at shift change and care was transitioned to Dr. Bhupinder Jesus at 11 PM. The police are still in the emergency department at the moment. The patient at the moment has been very cooperative and has not been aggressive. <Bhupinder Jesus MD - Last Filed: 10/26/24 00:44> Vital Signs: 10/25/24 22:28 10/25/24 23:00 10/25/24 23:28 Temperature 98 F 98.0 F Temperature Source Oral Oral Pulse Rate 103 H 94 H Pulse Rate [Radial] 107 H Respiratory Rate 14 17 16 Blood Pressure 129/85 129/85 Blood Pressure [Right Arm] 136/87 Blood Pressure Mean 97 Blood Pressure Mean [Right Arm] 103 Blood Pressure Source Automatic Cuff Blood Pressure Position Sitting Blood Pressure Position [Right Arm] Sitting 02 Sat by Pulse Oximetry 98 98 98 Oxygen Delivery Method Room Air Room Air 10/25/24 23:53 Temperature 98.0 F Temperature Source Oral Pulse Rate 96 H Pulse Rate [Radial] Respiratory Rate 16 Blood Pressure 136/86 Blood Pressure [Right Arm] Blood Pressure Mean Blood Pressure Mean [Right Arm] Blood Pressure Source Automatic Cuff Blood Pressure Position Supine Blood Pressure Position [Right Arm] 02 Sat by Pulse Oximetry 97 Oxygen Delivery Method Room Air Lab Data Lab Results 10/25/24 22:30: WBC 6.4, RBC 5.47, Hgb 16.2, Hct 45.7, MCV 83.5, MCH 29.6, MCHC 35.4, RDW 11.2 L, Plt Count 239, MPV 10.2, Neut % (Auto) 53.3, Lymph % (Auto) 27.7, Cotton % (Auto) 9.4 H, Eos % (Auto) 8.2, Baso % (Auto) 1.1, Neut # (Auto) 3.4, Lymph # (Auto) 1.8, Cotton # (Auto) 0.6, Eos # (Auto) 0.5 H, Baso # (Auto) 0.1, Sodium 141, Potassium 3.7, Chloride 106, Carbon Dioxide 25, Anion Gap 13.7, BUN 14, Creatinine 1.00, Estimated Creat Clear 105, Estimated GFR 94, Est GFR ( Amer) 114, Glucose 102 H, Calcium 9.5, Total Bilirubin 0.6, AST 31, ALT 20, Alkaline Phosphatase 74, Troponin I < 0.01, Total Protein 6.9, Albumin 4.8, Globulin 2.1, Albumin/Globulin Ratio 2.3 H, Plasma/Serum Alcohol < 10 10/25/24 23:15: Urine Opiates Screen Negative, Urine Methadone Screen Negative, Ur Barbituates Screen Negative, Ur Phencyclidine Scrn Negative, Ur Amphetamines Screen Negative, U Benzodiazepines Scrn Negative, Urine Cocaine Screen Negative, U Marijuana (THC) Screen Negative Orders (Tests/Meds): ED MEDICATIONS Discontinued Medications Generic Name Dose Route Start Last Admin Trade Name Freq PRN Reason Stop Dose Admin Lactated Ringer's 1,000 mls @ 999 mls/hr 10/25/24 23:00 10/25/24 23:01 Lactated Ringer's 1000 Ml Bag IV 10/26/24 00:00 999 mls/hr .Q1H1M ROSETTE Administration ORDERS Category Date Time Status CXR --portable [XR chest portable] Stat Exams 10/25/24 22:53 Completed CBC w/Auto Diff [Complete Blood Count Auto Diff] Stat Lab 10/25/24 22:30 Completed CMP [Comprehensive Metabolic Panel] Stat Lab 10/25/24 22:30 Completed Ethanol [Ethyl Alcohol] Stat Lab 10/25/24 22:30 Completed Trop I [Troponin I] Stat Lab 10/25/24 22:30 Completed Troponin I Q3H Lab 10/26/24 02:00 Ordered Troponin I Q3H Lab 10/26/24 05:00 Ordered UDS [Drug Screen,Urine] Stat Lab 10/25/24 23:15 Completed ECG Data Tracing #1: I reviewed this ECG and interpreted as documented below: ECG initial impression date: 10/25/24 ECG initial impression time: 22:30 ECG normal with no acute: arrhythmias, ischemia, conduction abnormalities, chamber hypertrophy Normal Sinus Rhythm: Yes Medical Decision Narrative: 19-year-old with above history and physical initially to me telling me he is here for chest pain. Seems to be very low risk we will get an EKG single troponin he is PERC negative on my evaluation. Seems to be very low risk from a chest pain standpoint. However complicating things the police showed up being called for an active shooter situation. To my knowledge there were no shots that were fired. The description of the suspect matches Wenceslao. Additionally there was a bystander to whom I spoke to as well who stated that the patient was screaming profanities and the parking lot stating I am going to fuck you up, going here and shoot everybody and then kill myself. The patient denies saying these things. Police are currently here. At the moment we believe the remainder of the situation is cleared but the patient is currently on a one-to-one hold for possible suicidal and homicidal ideation. Initial workup is initiated. Patient showed up right at shift change and care was transitioned to Dr. Bhupinder Jesus at 11 PM. The police are still in the emergency department at the moment. The patient at the moment has been very cooperative and has not been aggressive. Ann Marie CAMACHO: I assumed care of the patient at the time of handoff from the prior provider. On reassessment patient is hemodynamically stable. Chest pain workup is unremarkable on my independent interpretation including, negative initial troponin, no electrolyte derangements, no leukocytosis. Chest x-ray independently turbid by me shows no focal opacities. Urine drug screen is negative. I spoke over the phone with Vincent Black. His phone number is [phone]. He drove the patient to the hospital to be evaluated for his chest pain initially. He attests that he did hear the patient threatened to kill himself, though he does not attest to any of the other statements that were supposedly made. I also spoke with the Dr. Tan who reports that he was told by the standard that the patient made these threatening statements regarding suicide and homicide. As a result, I do not think that patient is safe or appropriate for discharge at this time, even though he denies any suicidal or homicidal ideation currently. I spoke with the patient extensively regarding his presentation. He reports his chest pain is essentially resolved. He reports that that he has been treated at [facility] in the past for suicidal ideation but denies any issues at this time, is not on any psychiatric medications. He is agreeable to further psychiatric evaluation. I called and spoke with the empath unit at [facility] who accepted him for further evaluation. Accepting physician is Dr. Parr. Critical Care <Kodak Tan MD - Last Filed: 10/25/24 22:59> Critical Care Time Critical Care Time: No <Bhupinder Jesus MD - Last Filed: 10/26/24 00:44> Critical Care Time Critical Care Time: No
--- NOTE | 2024-10-25 22:57 | PC.NURSE ---
Pt visibly shaking on arrival now states he was arguing with girlfriend prior to arrival. Chest pain began prior to argument according to patient
--- NOTE | 2024-10-25 22:59 | PC.NURSE ---
CXR done at bedside
[2024-10-25 23:00] VITALS: BP 129/85; PULSE 103; RESP 17; O2SAT 98
[2024-10-25] MEDS: LACTATED RINGERS 1000ML 1,000 ML 999 ML IV (23:01)
[2024-10-25 23:04] LABS: Basophils # 0.1 K/mm3 (0-0.2); Basophils % 1.1 % (0.1-2.0); Eosinophils # 0.5 K/mm3 (0.0-0.4); Eosinophils % 8.2 % (0.1-12.0); Hematocrit 45.7 % (42.0-52.0); Hemoglobin 16.2 g/dL (14.1-18.0); Lymphocytes # 1.8 K/mm3 (0.7-4.5); Lymphocytes % 27.7 % (10-50); Mean Corpuscular HGB Conc 35.4 g/dL (31.8-35.4); Mean Corpuscular Hemoglobin 29.6 pg (27.0-31.2); Mean Corpuscular Volume 83.5 fl (80-94); Mean Platelet Volume 10.2 fl (7.4-10.4); Monocytes # 0.6 K/mm3 (0.1-1.0); Monocytes % 9.4 % (1.7-9.3); Neutrophils # 3.4 K/mm3 (1.8-7.8); Neutrophils % 53.3 % (37.0-80.0); Platelet Count 239 K/mm3 (142-424); Red Blood Count 5.47 M/mm3 (4.60-6.20); Red Cell Distribution Width 11.2 % (11.5-17.5); White Blood Count 6.4 K/mm3 (4.8-10.8)
[2024-10-25 23:05] LABS: Albumin Level 4.8 g/dl (3.5-5.0); Chloride 106 mmol/L (98-107); Potassium 3.7 mmoL/L (3.5-5.1); Sodium 141 mmol/L (136-145)
[2024-10-25 23:08] LABS: Alanine Aminotransferase 20 U/L (12-78); Albumin/Globulin Ratio 2.3 (1.1-1.8); Alkaline Phosphatase 74 U/L (38-126); Anion Gap 13.7 mEq/L (5-15); Aspartate Amino Transferase 31 U/L (17-59); Bilirubin,Total 0.6 mg/dl (0.2-1.3); Blood Urea Nitrogen 14 mg/dl (9-20); Calcium 9.5 mg/dl (8.4-10.2); Carbon Dioxide 25 mmol/L (22.0-30.0); Creatinine Clearance Estimated 105 mL/min (50-200); Estimated Glomerular Filt Rate 94 ml/min (>60); GFR (African American) 114 ML/MIN (>60); Globulin 2.1 g/dL (1.3-3.2); Glucose 102 mg/dl (74-100); Total Protein,Serum 6.9 g/dl (6.3-8.2)
[2024-10-25 23:11] LABS: Ethyl Alcohol < 10 mg/dl (0-10)
--- NOTE | 2024-10-25 23:13 | PC.NURSE ---
urine collected and sent to lab
[2024-10-25 23:25] LABS: Troponin I < 0.01 ng/ml (0.00-0.034)
[2024-10-25 23:28] VITALS: BP 129/85; PULSE 94; RESP 16; TEMP 36.7; O2SAT 98
[2024-10-25 23:41] LABS: Methadone Screen,Urine Negative ng/ml (<300)
[2024-10-25 23:42] LABS: Cannabinoid Screen,Urine Negative ng/ml (<50)
[2024-10-25 23:43] LABS: Cocaine Screen,Urine Negative ng/ml (<300); Opiate Screen,Urine Negative ng/ml (<300)
[2024-10-25 23:44] LABS: Phencyclidine Screen,Urine Negative ng/ml (<25)
--- NOTE | 2024-10-25 23:50 | PC.NURSE ---
Pt states he has been a patient at [facility] in the past and making statements like I'm not going back there
[2024-10-25 23:53] VITALS: BP 136/86; PULSE 96; RESP 16; TEMP 36.7; O2SAT 97
[2024-10-25 23:53] LABS: Amphetamine/Metha Screen,Urine Negative ng/ml (<1000); Barbiturates Screen,Urine Negative ng/ml (<200)
[2024-10-25 23:54] LABS: Benzodiazepines Screen,Urine Negative ng/ml (<200)
--- NOTE | 2024-10-25 23:59 | PC.NURSE ---
IV fluids complete
--- NOTE | 2024-10-26 00:22 | PC.NURSE ---
Spoke with Fermin about reaching out to impath about this patient
--- NOTE | 2024-10-26 00:56 | PC.NURSE ---
[facility] Pt cooperative
[2024-10-26 00:57] VITALS: BP 136/86; PULSE 96; RESP 16; TEMP 36.7; O2SAT 98
== END 2024-10-26 00:58 | disposition short-term general hospital (02) ==
PROVIDERS: Student in an Organized Health Care Education/Training Program; Emergency Provider Emergency Medicine
DX: R07.9 Chest pain, unspecified (principal); R45.850 Homicidal ideations; R45.851 Suicidal ideations
CPT/HCPCS: 71045; 80053; 80307; 80320; 84484; 85025; 93005; 96360; 99285; J7120

== ENCOUNTER 2025-01-28 19:15 | Emergency (ER) | payer OTHER, SELFPAY ==
--- OUTSIDE RECORDS SUMMARY | 2024-10-27 17:30 | XMS_ITS ---
Author Organization Farrah Dillard PE D [facility] Address [address] [facility] [address] [facility] [address] [place] [address] Care Team Providers Care Certified Medical Asst Name Role Phone Chao Calderon Primary Care Provider [phone] Chao Oconnor Unavailable [phone] Migration, Provider Unavailable Unavailable Allergies Allergen (clinical drug ingredient) Drug/Non Drug Allergy documented on EMR Reaction Allergy Type Onset Date Status azithromycin Zithromax rash Drug Allergy Acti [facility] Conversion Encounter Medications Medication SIG (Take, Route, Frequency, Duration) Notes Start Date End Date Status Vyvanse 40 MG 1 cap(s) orally once a day (in the morning); Duration: 30 day(s) 03/01/2023 Ac tive Encounters Encounter Location Date Provider Diagnosis [facility] [address] [facility] [address] [place] [phone] 10/27/2024 Provider Migration Plan Of Treatment Medication Medication Name Sig Start Date Stop Date Notes Vyvanse 40 MG 1 cap(s) orally once a day (in the morning); Duration: 30 day(s) 03/01/2023 Progress Notes * Wenceslao DELACRUZDOB:[birth year] (19 yo M)Acc No.[id number]:10/27/2024 Patient: Wenceslao VALLE Provider: Cookie sapp Migration :2005 A ge:19 Y S ex:Male Date:10/27/2024 Address:[address] [place], [place] [address] [address] [id number] Pcp:Chao Calderon Subjective: * Chief Complaints: * 1 . Multum To Medispan Conversion Encounter. * Medical History: * Allergies: Z ithromax: rash. Objective: * Vitals: Assessment: Plan: * Treatment: * * Electronic signature of Prov shirar Migration on 01/28/2025 at 07:37 PM EDT Sign off status: Pending * Provider: Cookie sapp Migration Date: 0 10/27/2024 Generated for Shanna love/Gwendolyn/Maryamsmitting on: 0 01/28/2025 07:37 PM EDT
--- OUTSIDE RECORDS SUMMARY | 2025-01-24 16:10 | XMS_ITS | Encounter Summary ---
Author Organization [facility] Address [address] [place] [address] Care Team Providers Care Referral Specialist Name Role Phone OniMarino mejia Farhat JAMA Primary Care Provider [phone] Reason for Visit * Reason Comments Cholesteatoma Left ear Hearing Loss Left ear * Consultation (Routine) - Closed Specialty Diagnoses / Procedures Referred By Yomaira tirado Referred To Contact Otolaryngology Diagnoses Unspecified cholesteatoma, left ear Conductive hearing loss, unilateral, left ear, with unrestricted hearing on the contralateral side Tympanosclerosis, bilateral Otalgia, left ear Myringotomy tube(s) status Jaz Jackson, CONDENSER WINDER [address] [place] [address] Phone: tel: fax: [facility] Otolaryngology [address], [address] [place] [address] Phone: tel: fax: Referral ID Status Reason Start Date Expiration Date V isits Requested Visits Authorized [id number] Closed Specialty Services Required 01/17/2025 07/19/2026 1 1 Encounter Details Date Type Department Care Team (Late st Contact Info) Description 01/24/2025 4:10 PM EDT Consult [facility] Otolaryngology [address] [place] [address] Екатерина Gonzalez MD [address] [place] [address] Cholesteatoma of attic of ear, left (Primary [...] drink 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
--- OUTSIDE RECORDS SUMMARY | 2025-01-28 19:37 | XMS_ITS | Clinical Summary ---
Author Organization [facility] Address [address] [place] [address] Care Team Providers Care Contract Preparer Name Role Phone Marino Bunn Primary Care Provider [phone] Allergies Active Allergy Reactions Criticality Noted Date Comments Azithromycin Anaphylaxis High 10/26/2024 Medications No known medications Active Problems Problem Noted Date Diagnosed Date Anxiety disorder 10/26/2024 Encounters Date Type Department Care Team Description 01/24/2025 4:10 PM EDT Consult [facility] Otolaryngology [address], [address] [place] [address] Екатерина Gonzalez MD Cholesteatoma of attic of ear, left (Primary Dx) 01/24/2025 Travel 01/21/2025 Telephone [facility] Otolaryngology [address] [place] [address] Vj Story 01/21/2025 Telephone [facility] Otolaryngology [address] [place] [address] Anali Becerril 01/09/2025 Orders Only External Location [address] [place] [id number] Provider, External from Last 3 Months Social History Tobacco Use Types Packs/Day Years Used Date Smoking Tobacco: Never Assessed Smokeless Tobacco: Current Chew Tobacco Cessation:Ready to Q uit: Not Asked; Counseling Given: Not Answered Alcohol Use Standard Drinks/Week Comments Yes 0 [...] drink first t seven in the morning (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 0 10/26/2024 CAGE Questionnaire Score 0 025 Sex and Gender Information Value Date Recorded Sex Assigned at Not on file Legal Sex Male 12:33 PM EDT Gender Identity Not on file Sexual Orientation Not on file Last Filed Vital Signs Vital Sign Reading Time Taken Comments Blood Pressure 133/80 01/24/2025 3:40 PM EDT Pulse 84 01/24/2025 3:40 PM EDT Temperature 36.4 C (97.5 F) 10/26/2024 1:48 AM EDT Respiratory Rate 18 10/26/2024 4:02 AM EDT Oxygen Saturation 98% 10/26/2024 1:48 AM EDT Inhaled Oxygen Concentration - - Weight 63.2 kg (139 lb 5.3 oz) 01/24/2025 3:40 P M EDT Height 180.3 cm (5' 11 ) 01/24/2025 3:40 PM EDT Body Mass Index 19.43 01/24/2025 3:40 PM EDT Plan of Treatment Health Maintenance Due Date Last Done Comments [facility]-HIV Screening 2003 [facility]-Hepatitis C Screening 2003 [facility]-/Child/Adol SDOH Screenings 2003 HPV Vaccines (1 - Male 3-dose series) 2018 [facility]-Hepatitis A Vaccines (2 of 2 - 2-dose series) 02/12/2019 08/15/2018 [facility]- SDOH Screenings 2021 [facility]-Adult SDOH Screenings 2021 [id number]-31 Vaccine ( - season) 2024 [facility]-Influenza Vaccine (#1) 2025 [facility]-Depression Screening 10/26/2025 10/26/2024, 0410/2024 [facility]-DTaP,Tdap,and Td Vaccines (7 - Td or Tdap) 03/01/2026 03/01/2016, 11/06/2007, 09/23/2004, Additional history exists [facility]-Zoster Vaccines (1 of 2) 2053 03/01/2016, 09/23/2004 [facility]-HIB Vaccines Completed 09/23/2004, , 2003 [facility]-Hepatitis B Vaccines Completed 005, 2003, 2003 [facility]-Pneumococcal Vaccine: Pediatrics (0 to 5 Years) and At-Risk Patients (6 to 49 Years) Aged Out 09/23/2004, 03/25/2004, 01/20/2004, Additional history exists No longer eligible based on patient's age to complete this topic [facility]-IPV Vaccines Completed 11/06/2007, 07/2003, 01/20/2004, Additional history exists [facility]-Varicella Vaccines Completed 03/01/2016, 2004 [facility]-Rotavirus Vaccines Aged Out No lo nger eligible based on patient's age to complete this topic Procedures Procedure Name Priority Date/Time Associated Diagnosis Comments CT OUTSIDE IMAGES 01/09/2025 4:41 PM EDT from Last 3 Months Results * CT OUTSIDE IMAGES (01/09/2025 4:41 PM EDT) Anatomical Region Laterality Modality Computed Tomogra phy 01/09/2025 4:41 PM EDT External Provider IMG CT PROCEDURES Final Result from Last 3 Months Insurance [employer] [facility] MEDICAID Care Teams Contract Preparer Relationship Specialty Start Date End Date Marino Bunn DO [address] [place] [address] [place] [address] PCP - General 01/24/25
--- OUTSIDE RECORDS SUMMARY | 2025-01-28 19:37 | XMS_ITS | Encounter Summary ---
Author Organization Healthcare Address [address] 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 0 10/26/2024 CAGE Questionnaire Score 0 025 Sex and Gender Information Value Date Recorded Sex Assigned at Not on file Legal Sex Male 12:33 PM EDT Gender Identity Not on file Sexual Orientation Not on file documented as of this encounter Plan of Treatment Not on file documented as of this encounter Procedures Procedure Name Priority Date/Time Associated Diagnosis Comments CT OUTSIDE IMAGES 01/09/2025 4:41 PM EDT documented in this encounter Results * CT OUTSIDE IMAGES (01/09/2025 4:41 PM EDT) Anatomical Region Laterality Modality Computed Tomogra phy 01/09/2025 4:41 PM EDT us External Provider IMG CT PROCEDURES Final Result documented in this encounter Visit Diagnoses Not on filedocumented in this encounter Additional Health Concerns Assessment Noted Time PHQ-9 Depression Total Score: 0 10/27/19 2:08 AM EDT documented as of this encounter Care Teams Biofuels Plant Manager Relationship Specialty Start Date End Date William Lao MD [address] [place] [address] PCP - General Internal Medicine 10/05/22 01/23/25 documented as of this encounter
--- OUTSIDE RECORDS SUMMARY | 2025-01-28 19:37 | XMS_ITS | Data Portability ---
Author Organization [place] - [facility] & GISELL Dent ADMIN Address [address] [place] [address] Care Team Providers Care Plate Glass Installer Helper Name Role Phone MAYELIN GARDNER Primary Care Provider [phone] Assessment No assessment recorded. Plan of Treatment Reminders Order Date Submit Date Provider Last Modified By Organization Details Last Modified Time Details Appointments None recorded. Lab None recorded. Referral None recorded. Procedures None recorded. Surgeries None recorded. Imaging CT, temporal bone, w/o contrast [address] (Centralized Scheduling), [address] [place], [address], 5 14:09:07 Medication Orders ciprofloxac in 0.3 %-dexametha sone 0.1 % ear drops,suspe nsion 2024 025 [facility]/Pharmacy #[id number], [address] [place], [address], 5 15:32:19 fluticasone propionate 50 mcg/actuati on nasal spray,suspe nsion 2024 025 [facility]/Pharmacy #[id number], [address] [place], [address], 5 15:32:48 Patient TargetsNo targets recorded. Patient InstructionsNo instructions recorded. Reason for Referral None Reported. Results Created Date Observation Date Name Description Value Unit Range Abnormal Flag Note LastModifiedBy Organization Detail LastModifiedTime 01/02/2012/27/2024 audio gram No observ ation record ed. [place] [id number] Not Available 13:45:40 01/18/20 25 01/09/2025 CT tempo rl bone wo [facility] [address] [place] [address] Phone: Fax: Name: JOSE A SANCHES Exam Date: 025 : 004 Age 19 years Gender : M Access ion: [id number] Physic desean: COFFMA N, CRISTIAN [place]: [place] [place] HSV: Outpat ient Exam: CT TEMPOR L BONE WO PROCED URE DESCRI PTION: CT TEMPOR AL BONE WITHOU T IV CONTRA ST CLINIC AL INDICA TION: Conduc tive hearin g loss unilat eral with unrest ricted hearin g on the contra latera l side. COMPAR DERICK: No prior studie s were compar ed. The CT exam was perfor med using one or more of the follow ing dose reduct ion techni ques: Automa matthieu exposu re contro l, adjust ment of the mA and/or kV accord ing to the patien t's size, or use of iterat honorio recons tructi on techni que. FINDIN GS: The caroti d canals and internal medicine nurse practitioner al jugula r forame n are unrema rkable . There is a left-s ided mastoi d effusi on.The re is fluid and/or soft tissue in the aditus ad antrum locate d latera l to the middle ear ossicl es. Differ ential consid eratio ns could includ e fluid and/or soft tissue or choles teatom a. There is slight erosio n involv ing the bony scutum . There is increa sed thicke nereyda involv ing the anteri or aspect of the left hide shaker al audito ry canal which may repres ent underl jerardo cerume n or soft tissue mass. The right middle ear ossicl es are unrema rkable . The internal medicine nurse practitioner al audito ry canals , semici rcular canals , cochle a, and course of the facial nerve are unrema rkable . There is mild right maxill trevor sinus mucosa l thicke nereyda. There is a suspec matthieu left maxill trevor sinus mucous retent ion cyst. There is mild bilate ral ethmoi d sinus mucosa l thicke nereyda. IMPRES MT: 1. Left-s ided mastoi d effusi on. 2. Soft tissue and or fluid involv ing the left aditus ad antrum and locate d latera l to the middle ear ossicl es with slight bony erosio n of the scutum . Differ ential consid eratio ns could includ e fluid and/or soft tissue or choles teatom a. 3. Thicke nereyda involv ing the anteri or aspect of the left hide shaker al audito ry canal which may repres ent underl jerardo cerume n or soft tissue mass 4. Parana germaine sinus mucosa l thicke nereyda as descri bed above. Correl ate with direct visual izatio n. ENT consul tation is also recomm ended. Electr onical ly signed by: Inder tirado MD 2024 09:31 AM EDT RP Workst ation: [id number] Dictat ed By: INDER DODD Transc ribed By: Transc ribed On: 025 9:31 AM Electr onical ly signed by: INDER DODD 025 Thank you for [facility] Legall y authen ticate d by SCOTT BOB W 01-17 09:31: 55 CC'ed Logic: Orderi ng Provid er: SERA LUND Attend ing Provid er: SERA LUND Admitt ing Provid er: SERA LUND [id number] [facility] - [facility] [address], [place], [address], 01/17/2025 10:27:23 Result Notes None recorded. Problems Name Problem SNOMED Code Status Onset Date Resolution Date Notes Provider Name and Address Organization Details Recorded Time Conductive hearing loss of left ear with normal hearing on right side 1214047302 Active 2024 ABELARDO BENSON, SARAH [address], [place], [address] , [facility] & [place] 15:47:38 Problem Notes None recorded. Procedures Surgical History Date Name Laterality Status Provider Name and Address Organization Details Recorded Time tonsilectom y/adenoids completed Princess WINSTON [facility] 11/28/2024 15:21:47 Imaging Results None recorded. Procedure Notes None recorded. Medical Equipment None Reported. Allergies Allergen ID Allergen Name Allergen Category Reaction Reaction Severity Criticality Documentation Date Start Date Code Code System Note Provider Name and Address Organization Details Recorded Time 200132 azithromy hitesh medicatio n Not available Not available Not available 11/28/2024 83852 RxNorm Princess Kaplan [facility], [facility] & [place] 15:21:21 Medications Name Sig Start Date Stop Date Status Note LastModified by Organization Details LastModified Time fluticasone propionate 50 mcg/actuatio n nasal spray,suspen mt 2 SPRAYS PER NOSTRIL ONCE DAILY X 30 DAYS active Not Available Not Available No t Available amoxicillin 500 mg-potassium clavulanate 125 mg tablet TAKE 1 TABLET ORAL ROUTE EVERY 8 HOURS FOR 10 DAYS 11/28 completed Not Available Not Available Not Available ciprofloxaci n 0.3 %-dexamethas one 0.1 % ear drops,suspen mt INSTILL 4 DROPS INTO LEFT EAR BY OTIC ROUTE EVERY 12 HOURS FOR 7 DAYS active Not Available Not Available No t Available Vitals Date Recorded Body weight Body temperature Provider N johnathon and Address Organization Details Last Updated DateTime 11/28/2024 09965.84 g 98.6 [degF] Princess WINSTON [facility] & [place] 11/28/2024 15:20:53 Social History None recorded. Functional Status None recorded. Mental Status None recorded. Family History Nothing Reported. Medical History Condition Response None N Emphysema N Depression N Glaucoma N Anesthesia Complications N Anxiety Disorder N Arthritis N Hearing Loss N Acid Reflux (GERD) N Cancer N Stroke N Fibromyalgia N Headaches N Speech Delay N Kidney Disease N Allergies/Hayfever N Heart Problems N Heart Conditions N Migraines N Thyroid Problems N Developmental Delay N Anemia N Immune System Disorder N Heart Attack (SD) N Diabetes N Bleeding Disorder N Tuberculosis N Hyperlipidemia N Asthma N Sleep Disorder N GERD/Reflux N Heart Disease N Hypertension N Past Encounters Encounter ID Performer Location Encounter Start Date Encounter Closed Date Diagnosis/Indication Diagnosis SNOMED-CT Code Diagnosis ICD10 Code Diagnosis Note [id number] CRISTIAN GARDNER NP [facility] [address] [address] 11/28/2024 15:09:13 11/28/2024 15:32:15 Acute otitis externa of left ear 7857970956 635562 H60.502 Will see him back in 4 weeks w/ audiogram. Acute non- suppurative serous otitis media 464272895 H65.02 Bilateral tympanosclerosis 1572045070 7855097 H74.03 History of procedure 416 597535 Z96.22 [id number] CRISTIAN GARDNER NP [facility] [address] [address] 12/27/2024 15:33:01 12/27/2024 15:50:24 Conductive hearing loss of left ear with normal hearing on right side 7300128131 H90.12 LE otorrhea has resolved since last visit. Audiogram today shows CHL in LE w/ normal hearing in RE. Type As (reduced compliance ) in LE and Type A in RE on tympanogra m. He is still complainin g of intermitte nt ear pain. Advised he put nothing in his ears and take tylenol as needed for ear pain. Follow up pending results of CT or sooner if needed. Bilateral tympanosclerosis 6020775397 2715645 H74.03 History of procedure 416 147380 Z96.22 Otalgia of left ear 1010 498786 H92.02 [id number] SARAH HALE [facility] [address] [address] 12/27/2024 15:33:11 12/27/2024 15:48:03 Conductive hearing loss of left ear with normal hearing on right side 6310845560 H90.12 Health Concerns Section Related Observation LastModified by Organization Detai ls LastModified Time None Recorded Concern Status LastModified by Organization Details LastModified Time None Recorded Advance Directives Directive None Recorded Payers Insurance Date Sequence Insurance Name Policy Number Policy Peterson Covered Member ID Peterson Member ID Guarantor Name 12/24/2024 1 [employer]ET[employer] [facility] (MEDICAID HMO) Wenceslao Arana [id number] Wenceslao Arana Notes Date Note Type Note Provider Name and Address Organization Details Recorded Time 11/28/2024 text/html 11/28/24 - 19 year old male in office for left ear pain x 3 weeks. Patient says his left ear is draining a green color. Patient says he used a Q-tip on his left outer ear before her went to [facility] hospital and he saw blood. Patient is not currently taking any medications. Patient says he can hear normally but does have come occasional ringing. He has had multiple sets of ear tubes as a child. Patient denies any pain, drainage, or hearing loss in the right ear. He finished entire course of augmentin that was prescribed to him by [facility] ED on 11/05. States the pain in his LE has improved significantly but still occasionally comes and goes. CRISTIAN GARDNER NP [address] , [place], [address], [facility] & [place] 11/28/2024 15:36:20 12/27/2024 text/html Wenceslao was seen today for an audiologic evaluation following treatment for L sided otitis media by Cristian Gardner APRN. Wenceslao reports that his symptoms include L sided aural drainage, L sided aural fullness/pressure, and L sided hearing loss. He denies hearing loss in the RE. Otoscopic inspection revealed tympanosclerosis bilaterally. His medical hx includes multiple sets of PE tubes. Type A Tympanogram REType A(s) (reduced TM compliance) LE Audiometric testing revealed normal hearing thresholds in the RE and a mild, conductive hearing loss in the LE. Good word rec scores. 1-Discussed findings with Mr. Arana and Cristian Gardner APRN. 2-F/u with Cristian this date. 3-F/u hearing testing annually. ABELARDO BENSON, SARAH [address] , [place], [address], [facility] & [place] 12/27/2024 15:47:55 12/27/2024 text/html 12/27/24 - 19 year old male in office for follow up on ear pain and drainage. Patient says some days he has ear pain in his left ear. Patient has been using the flonase as prescribed daily. Patient says he has not had any drainage from his left ear since finishing the drops. 11/28/24 - 19 year old male in office for left ear pain x 3 weeks. Patient says his left ear is draining a green color. Patient says he used a Q-tip on his left outer ear before her went to [facility] hospital and he saw blood. Patient is not currently taking any medications. Patient says he can hear normally but does have come occasional ringing. He has had multiple sets of ear tubes as a child. Patient denies any pain, drainage, or hearing loss in the right ear. He finished entire course of augmentin that was prescribed to him by [facility] ED on 11/05. States the pain in his LE has improved significantly but still occasionally comes and goes. CRISTIAN GARDNER, BELA [address] [facility], [place], [address], [facility] [place] & [place] 12/27/2024 15:55:14
--- OUTSIDE RECORDS SUMMARY | 2025-01-28 19:37 | XMS_ITS | Encounter Summary ---
Author Organization Healthcare Address [address] [place] [address] Care Team Providers Care Loan Expeditor Name Role Phone William Lao MD Primary Care Provider [phone] Encounter Details Date Type Department Care Team (Late st Contact Info) Description 01/21[facility] [address], [address] [place] [address] Anali Becerril ````````````````````[place] - PACU - MAJOR, PAV A Social History Tobacco Use Types Packs/Day Years [...] drink first t seven in the morning (EYE-MEDIA SERVICES DIRECTOR) to steady your nerves or to get [...] documented as of this encounter Visit Diagnoses Not on filedocumented in this encounter Additional Health Concerns Assessment Noted Time PHQ-9 Depression Total Score: 0 10/27/19 25 2:08 AM EDT documented as of this encounter Care Teams Loan Expeditor Relationship Specialty Start Date End Date William Lao MD [address] [place] [address] PCP - General Internal Medicine 10/05/22 01/23/25 documented as of this encounter
--- OUTSIDE RECORDS SUMMARY | 2025-01-28 19:37 | XMS_ITS | Encounter Summary ---
Author Organization Healthcare Address [address] [place] [address] Care Team Providers Care Breaking Machine Operator Name Role Phone William Lao MD Primary Care Provider [phone] Encounter Details Date Type Department Care Team (Late st Contact Info) Description 01/21/2025 Telephone [facility] Otol[facility] [address], [address] [place] [address] Vj Story Social History Tobacco Use Types Packs/Day Years [...] drink first t seven in the morning (EYE-SIMULATION SOFTWARE ENGINEER) to steady your nerves or to get [...] documented as of this encounter Care Teams Breaking Machine Operator Relationship Specialty Start Date End Date William Lao MD [address] [place] [address] PCP - General Internal Medicine 10/05/22 01/23/25 documented as of this encounter
--- OUTSIDE RECORDS SUMMARY | 2025-01-28 19:37 | XMS_ITS | Encounter Summary ---
Author Organization Healthcare Address [address] [place] [address] Care Team Providers Care Health Information Managers Name Role Phone William Lao MD Primary Care Provider [phone] Marino Bunn DO Primary Care Provider [phone] Encounter Details Date Type Department Care Team (Late st Contact Info) Description 10/05/2022 Orders Only External Location [address] [place] [address] Zackary Kasper PA [address] [facility] [address] [place] [address] Social History Tobacco Use Types Packs/Day Years Used Date Smoking Tobacco: Never Assessed Sex and Gender Information Value Date Recorded Sex Assigned at Not on file Legal Sex Male 12:33 PM EDT Gender Identity Not on file Sexual Orientation Not on file documented as of this encounter Plan of Treatment Not on file documented as of this encounter Procedures Procedure Name Priority Date/Time Associated Diagnosis Comments CT ANGIO CARDIAC CORONARY ARTERIES 10/05/2022 8:41 AM EDT documented in this encounter Results * CT Angio Cardiac Coronary Arteries (10/05/2022 8:41 AM EDT) Anatomical Region Laterality Modality Heart Computed Tomogra phy 10/05/2022 8:41 AM EDT Zackary ORTEGA IMG CT PROCEDURES Final Result documented in this encounter Visit Diagnoses Not on filedocumented in this encounter Care Teams Health Information Managers Relationship Specialty Start Date End Date William Lao MD [address] [place] [address] PCP - General Internal Medicine 10/05/22 01/23/25 Marino Bunn DO [address] [place] [address] [place] [address] PCP - General 01/24/25 documented as of this encounter
--- OUTSIDE RECORDS SUMMARY | 2025-01-28 19:37 | XMS_ITS | Patient Health Record ---
Author Organization Formerly [facility] PE D [facility] Address [address] [place] [address] [place] [address] Care Team Providers Care Pneumatic Jacketer Name Role Phone Chao Calderon Primary Care Provider [phone] Chao Oconnor Unavailable [phone] Migration, Provider Unavailable Unavailable Allergies Allergen (clinical drug ingredient) Drug/Non Drug Allergy documented on EMR Reaction Allergy Type Onset Date Status Zithromax rash Drug Allergy Active Reason For Referral No Information Medications Medication SIG (Take, Route, Frequency, Duration) Notes Start Date End Date Status Vyvanse 40 MG 1 cap(s) orally once a day (in the morning); Duration: 30 day(s) 03/01/2023 Ac tive Problems Problem Type SNOMED Code ICD Code Onset Dates Problem Status W/U Status Risk Notes Problem Chronic mucoid otitis media of left middle ear (disorder) (3601363837863151 ) Chronic mucoid otitis media, left ear (H65.32) Active confirmed Problem Attention deficit hyperactivity disorder (334600900) ADHD (attention deficit hyperactivity disorder), combined type (F90.2) Active confirmed Problem Sleep disturbance (43646220) Sleep disturbance (G47.9) Active confirmed Problem Low weight, pediatric, BMI less than 5th percentile for age (Z68.51) Active confirmed Problem Anxiety state (004067293) Anxiety in pediatric patient (F41.9) Active confirmed Problem Seasonal allergic rhinitis (676720991) Acute seasonal allergic rhinitis, unspecified trigger (J30.2) Active confirmed Encounters Encounter Location Date Provider Diagnosis [facility] [address] [place] [address] 10/27/2024 Provider Migration Plan Of Treatment Pending Test Test Name Order Date Physical Therapy 05/09/2020 Insurance Providers Payer Name Payer Address Payer Phone Subscriber Number Group Number Insured Name Patient Relationship to Insured Coverage Start Date Coverage End Date [employer] [facility] [address] [address] [place] [address] [phone] [id number] Wenceslao Arana Self - patient is the insured Medical (General) History Medical History History ICD Code ADHD Surgical History Surgery Date(Month/Year) Ear tubes, T and A
--- OUTSIDE RECORDS SUMMARY | 2025-01-28 19:37 | XMS_ITS | Encounter Summary ---
Author Organization [facility] Address [address] [place] [address] Care Team Providers Care Income Tax Administrator Name Role Phone William Lao MD Primary Care Provider [phone] Marino Bunn DO Primary Care Provider [phone] Encounter Details Date Type Department Care Team (Late st Contact Info) Description 08/12/2022 Orders Only External Location [address] [place] [address] Billy Castro MD [address] [place] [address] Social History Tobacco Use Types Packs/Day Years [...] Priority Date/Time Associated Diagnosis Comments CT ANGIO PULMONARY EMBOLISM 08/12/2022 3:44 AM EST documented in this encounter Results * CT Angio Pulmonary Embolism (08/12/2022 3:44 AM EST) Anatomical Region Laterality Modality Chest Computed Tomogra phy 08/12/2022 3:44 AM EST us Billy Castro MD IMG CT PROCEDURES Final Resu lt documented in this encounter Visit Diagnoses Not on filedocumented in this encounter Care Teams Income Tax Administrator Relationship Specialty Start Date End Date William Lao MD [address] [place] [address] PCP - General Internal Medicine 10/05/22 01/23/25 Marino Bunn DO [address] [place] [address] PCP - General 01/24/25 documented as of this encounter
--- OUTSIDE RECORDS SUMMARY | 2025-01-28 19:37 | XMS_ITS | Continuity of Care Document ---
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 Plan of Treatment Reminders Order Date Submit Date Provider Last Modified By Organization Details Last Modified Time Details Appointments None recorded. Lab None recorded. Referral None recorded. Procedures None recorded. Surgeries None recorded. Imaging CT, temporal bone, w/o contrast 2024 025 [facility] [place] [place] [address] (Centralized Scheduling), [address] [facility], [place], [address], 14:09:07 Medication Orders None recorded. Patient TargetsNo targets recorded. Patient InstructionsNo instructions recorded. Reason for Referral None Reported. Results Created Date Observation Date Name Description Value Unit Range Abnormal Flag Note LastModifiedBy Organization Detail LastModifiedTime 01/02/20 25 12/27/2024 audio gram No observ ation record ed. [email or web address] Not Available 13:45:40 01/18/20 25 01/09/2025 CT tempo rl bone wo [facility] [address] [place] [address] Phone: Fax: Name: JOSE A SANCHES Exam Date: 025 : 004 Age 19 years Gender : M Access ion: [id number] Physic desean: CRISTIAN SCHWAB ty: [facility] Facili ty HSV: Outpat ient Exam: CT [...] FINDIN GS: The caroti d canals and manager intern al jugula r forame n are unrema [...] the anteri or aspect of the left rn hemodialysis charge al audito ry canal which may repres ent underl jerardo cerume n or soft tissue mass. The right middle ear ossicl es are unrema rkable . The manager intern al audito ry canals , semici rcular [...] the anteri or aspect of the left rn hemodialysis charge al audito ry canal which may repres [...] INDER DODD 025 Thank you for referr jennifer PALACIOS SJOSE A N to [facility]. Legall y authen ticate d by SCOTT Perry 01-17 09:31: 55 CC'ed Logic: Orderi ng Provid er: SERA LUND Attend ing Provid er: SERA LUND Admitt ing Provid er: SERA LUND [id number] [facility] [address] [facility], [place], [address], 01/17/2025 10:27:23 Result Notes None recorded. 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 Procedures Surgical History Date Name Laterality Status Provider Name and Address Organization Details Recorded Time tonsilectom y/adenoids completed Princess WINSTON - GISELL [facility] [place] 11/28/2024 15:21:47 Imaging Results None recorded. Procedure Notes None recorded. Medical Equipment None Reported. Allergies Allergen ID Allergen Name Allergen Category Reaction Reaction Severity Criticality Documentation Date Start Date Code Code System Note Provider Name and Address Organization Details Recorded Time 464651 azithromy hitesh medicatio n Not available Not available Not available 11/28/2024 33982 RxNorm Princess Kaplan n [facility], [place] - [facility] - [place] & [place] 15:21:21 Medications Name Sig Start Date Stop [...] Available Not Available No t Available Vitals None Recorded Social History None recorded. Functional Status None recorded. Mental Status None recorded. Family History Nothing Reported. Medical History Condition Response Allergies/Hayfever N Heart Problems N None N Heart Conditions N Emphysema N Migraines N Thyroid Problems N Glaucoma N Depression N Developmental Delay N Anemia N Immune System Disorder N Anesthesia Complications N Heart Attack ([place]) N Anxiety Disorder N Diabetes N Bleeding Disorder N Arthritis N Hearing Loss N Tuberculosis N Acid Reflux (GERD) N Hyperlipidemia N Cancer N Stroke N Asthma N Sleep Disorder N GERD/Reflux N Heart Disease N Headaches N Fibromyalgia N Hypertension N Speech Delay N Kidney Disease N Past Encounters Encounter ID Performer Location Encounter Start Date Encounter Closed Date Diagnosis/Indication Diagnosis SNOMED-CT Code Diagnosis ICD10 Code Diagnosis Note [id number] CRISTIAN GARDNER NP [facility] [address] [place] [address] 11/28/2024 15:09:13 11/28/2024 15:32:15 Acute otitis externa of left ear 9767841550 468460 H60.502 Will see him back in 4 weeks w/ audiogram. Acute non- suppurative serous otitis media 406922558 H65.02 Bilateral tympanosclerosis 8544919430 9843367 H74.03 History of procedure 416 650237 Z96.22 [id number] CRISTIAN GARDNER NP [facility] [address] [place] [address] 12/27/2024 15:33:01 12/27/2024 15:50:24 Conductive hearing loss of left ear with normal hearing on right side 7272089869 H90.12 LE otorrhea has resolved since last [...] CT or sooner if needed. Bilateral tympanosclerosis 8489701752 6053586 H74.03 History of procedure 416 649294 Z96.22 Otalgia of left ear 1010 978342 H92.02 [id number] SARAH HALE [facility] [address] [facility] [address] [place] [address] 12/27/2024 15:33:11 12/27/2024 15:48:03 Conductive hearing loss of left ear with normal hearing on right side 1629191711 H90.12 Health Concerns Section Related Observation LastModified by Organization Detai ls LastModified Time None Recorded Concern Status LastModified by Organization Details LastModified Time None Recorded Payers Encounter Date Sequence Insurance Name Policy Number Policy Peterson Covered Member ID Peterson Member ID Guarantor Name 12/27/2024 1 [facility] (MEDICAID HMO) Wenceslao Arana [id number] Wenceslao Arana Notes Date Note Type Note Provider Name and Address Organization Details Recorded Time 12/27/2024 text/html Wenceslao was seen today for [...] testing annually. ABELARDO BENSON, SARAH [address], [place], [address], [facility] & [place] 12/27/2024 15:47:55 12/27/2024 text/html 12/27/24 - 19 [...] left outer ear before her went to [facility] hospital and he saw blood. Patient is not currently taking any medications. Patient says he can hear normally but does have come occasional ringing. He has had multiple sets of ear tubes as a child. Patient denies any pain, drainage, or hearing loss in the right ear. He finished entire course of augmentin that was prescribed to him by [facility] ED on 11/05. States the pain in his LE has improved significantly but still occasionally comes and goes. CRISTIAN GARDNER NP [address], [place], [address], [facility] & [place] 12/27/2024 15:55:14
--- OUTSIDE RECORDS SUMMARY | 2025-01-28 19:37 | XMS_ITS | Encounter Summary ---
Author Organization Healthcare Address [address] 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
--- OUTSIDE RECORDS SUMMARY | 2025-01-28 19:38 | XMS_ITS | Continuity of Care Document ---
Author Organization [facility] - [facility], [facility] Address [address] [place] [address] Care Team Providers Care Waste Reclaimer Name Role Phone MAYELIN GARDNER Primary Care Provider Assessment No assessment recorded. Plan of Treatment Reminders Order Date Submit Date Provider Last Modified By Organization Details Last Modified Time Details Appointments None record ed. Lab None record ed. Referral None record ed. Procedures None record ed. Surgeries None record ed. Imaging None record ed. Medication Orders None record ed. Patient TargetsNo targets recorded. Patient InstructionsNo instructions recorded. Reason for Referral None Reported. Results Created Date Observation Date Name Description Value Unit Range Abnormal Flag Note LastModifiedBy Organization Detail LastModifiedTime 01/02/20 25 12/27/2024 audio gram No observ ation record ed. [email or web address] Not Available 13:45:40 01/18/20 25 01/09/2025 CT [facility] [address] [place] [address] Phone: Fax: Name: JOSE A SANCHES Paco Exam Date: 025 : 004 Age 19 years Gender : M Access ion: [id number] Physic desean: CRISTIAN SCHWAB Facili ty: [facility] Facili ty HSV: Outpat ient Exam: CT [...] FINDIN GS: The caroti d canals and training intern al jugula r forame n are [...] the anteri or aspect of the left spinning supervisor al audito ry canal which may repres ent underl jerardo cerume n or soft tissue mass. The right middle ear ossicl es are unrema rkable . The training intern al audito ry canals , semici [...] the anteri or aspect of the left spinning supervisor al audito ry canal which may repres [...] referr jennifer PALACIOS SJOSE A N to [facility]. Legall y authen ticate d by SCOTT BOB W 01-17 09:31: 55 CC'ed Logic: Orderi ng Provid er: SERA LUND Attend ing Provid er: SERA LUND Admitt ing Provid er: SERA LUND [id number] [facility] [address] [facility], [place], [address], 01/17/2025 10:27:23 Result Notes None recorded. 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 Procedures Surgical History Date Name Laterality Status Provider Name and Address Organization Details Recorded Time tonsilectom y/adenoids completed Princess Carlson [facility] [place] 11/28/2024 15:21:47 Imaging Results None recorded. Procedure Notes None recorded. Medical Equipment None Reported. Allergies Allergen ID Allergen Name Allergen Category Reaction Reaction Severity Criticality Documentation Date Start Date Code Code System Note Provider Name and Address Organization Details Recorded Time 407144 azithromy hitesh medicatio n Not available Not available Not available 11/28/2024 95024 RxNorm Princess holcomb null, [facility] [place] 15:21:21 Medications Name Sig Start Date Stop [...] Disorder N Anesthesia Complications N Heart Attack ([place]) N Anxiety Disorder N Diabetes N Bleeding [...] SNOMED-CT Code Diagnosis ICD10 Code Diagnosis Note [id number] CRISTIAN GARDNER NP [facility] [address] [place] [address] 11/28/2024 15:09:13 11/28/2024 15:32:15 Acute otitis externa of left ear 8322671673 808253 H60.502 Will see him back in 4 weeks w/ audiogram. Acute non- suppurative serous otitis media 256842519 H65.02 Bilateral tympanosclerosis 4261871981 1490775 H74.03 History of procedure 416 108284 Z96.22 [id number] CRISTIAN GARDNER NP [facility] [address] [place] [address] 12/27/2024 15:33:01 12/27/2024 15:50:24 Conductive hearing loss of left ear with normal hearing on right side 8568709706 H90.12 LE otorrhea has resolved since last [...] CT or sooner if needed. Bilateral tympanosclerosis 6640004990 5255727 H74.03 History of procedure 416 559449 Z96.22 Otalgia of left ear 1010 067484 H92.02 [id number] SARAH HALE [facility] [place] [address] [facility] [address] [place] [address] 12/27/2024 15:33:11 12/27/2024 15:48:03 Conductive hearing loss of left ear with normal hearing on right side 4746317707 H90.12 Health Concerns Section Related Observation LastModified by Organization Detai ls LastModified Time None Recorded Concern Status LastModified by Organization Details LastModified Time None Recorded Payers Encounter Date Sequence Insurance Name Policy Number Policy Peterson Covered Member ID [place] Member ID Guarantor Name 12/27/2024 1 [facility] (MEDICAID HMO) Wenceslao Arana [id number] Wenceslao Arana Notes Date Note Type Note [...] Cristian this date. 3-F/u hearing testing annually. SARAH HALE [address] [facility], [place], [address], [facility] & [place] 12/27/2024 15:47:55 12/27/2024 text/html 12/27/24 - 19 [...] left outer ear before her went to [facility] hospital and he saw blood. Patient is not currently taking any medications. Patient says he can hear normally but does have come occasional ringing. He has had multiple sets of ear tubes as a child. Patient denies any pain, drainage, or hearing loss in the right ear. He finished entire course of augmentin that was prescribed to him by [facility] on 11/05. States the pain in his LE has improved significantly but still occasionally comes and goes. CRISTIAN GARDNER, BELA [address], [place], [address], [place] - [facility] - [place] & [place] 12/27/2024 15:55:14
[2025-01-28 19:39] VITALS: BP 128/83; PULSE 81; RESP 16; TEMP 36.9; O2SAT 98; BMI 17.6
[2025-01-28 20:00] VITALS: BP 117/77; PULSE 87; O2SAT 98
--- NOTE | 2025-01-28 20:05 | HMH.EDGENADL ---
Discharge Plan Disposition Patient Disposition: Home, Self-Care Prescriptions Prescriptions: New cefdinir 300 mg capsule 300 mg PO BID 10 Days Qty: 20 0RF prednisone 20 mg tablet 60 mg PO ONCE 7 Days Qty: 21 0RF ciprofloxacin-dexamethasone 0.3-0.1 % drops,suspension 4 drp otic (ear) BID 7 Days Qty: 7.5 0RF No Action metoclopramide HCl [Reglan] 10 mg tablet 10 mg PO Q6H PRN (Reason: nausea and vomiting) Qty: 10 0RF Referrals Follow up/Referrals: Екатерина Gonzalez [Referring, Medical] - See instructions Marino Bunn DO [Primary Care Provider, Family Practice] - See instructions Activity Restrictions/Add. Instructions Additional Instructions/Restrictions: Follow-up with Dr. Gonzalez tomorrow as we discussed. Clinical Impressions Clinical Impression: Otitis media, Vertigo Instructions Patient Instructions: Middle Ear Infections (Alternative Therapy), DI for Vertigo Print Language Print Language: Tajik Discharge ED Provider: Zackary Ngo General Adult HPI <Sagrario Fong (ED), WELLNESS SPA MANAGER - Last Filed: 01/28/25 22:03> General Chief complaint: Ear Stated complaint: Dizzy,blurry vision,vomiting Time Seen by Provider: 01/28/25 19:45 Mode of Arrival: Ambulatory Source of Information: Patient Description of Symptoms (Recalled from ER Triage Doc. by RN): Pt presents to ED for L ear pain/dizziness. Pt has a tumor on the L side and is scheduled for surgery on 04/08. Pt is A&O*4 and rates pain 3/10. Family is bedside. History of Present Illness HPI narrative: 19-year-old male presents to the ED today for complaint of left ear pain, dizziness and visual changes that started today. He states that he had a little bit of a headache over the weekend but it was not bad. He is light sensitive now. He is supposed to have surgery in March he initially went to see ER because his ear was bleeding and he had ear pain. He was sent straight to ENT in [place] by Dr. Ozuna. He was sent to then to clinic and was scheduled for surgery for a tumor in his ear. We are obtaining records at this time. April 08 for this. Related Data Previous Rx's ?Medication ?Instructions ?Recorded metoclopramide HCl 10 mg tablet 10 mg PO Q6H PRN nausea and 09/02/24 (Reglan) vomiting #10 tabs cefdinir 300 mg capsule 300 mg PO BID 10 days #20 caps 01/28/25 ciprofloxacin 0.3 %-dexamethasone 4 drp otic (ear) BID 7 days #7.5 mL 01/28/25 0.1 % ear drops,suspension prednisone 20 mg tablet 60 mg (3 x 20 mg) PO ONCE 7 days 01/28/25 #21 tabs Allergies Allergy/AdvReac Type Severity Reaction Status Date / Time azithromycin (From ZITHROMAX) Allergy Mild Rash Verified 09/02/24 18:22 PFS <Sagrario Fong (ED), WELLNESS SPA MANAGER - Last Filed: 01/28/25 22:03> PFS Disclaimer: The information contained in this section may have been updated after the patient was seen, as this information can be updated by other users. Medical History Generalized anxiety disorder Fatigue Abnormal stress test Family history of valvular heart disease Family history of ischemic heart disease Abnormal electrocardiogram [ECG] [EKG] Surgical History History of tonsillectomy History of placement of ear tubes Family History Other Family history of kidney stone Fatigue Social History Smoking Status: Current every day smoker tobacco type: e-cigarettes years smoked: 1 second hand exposure: No alcohol intake: never counseling given: No substance use type: denies use counseling given: No current occupational status: employed Travel in the last 8 weeks?: None adopted: No caregiver/support person: No foster care: No household members: family housing: house lives independently: No marital status: single number of children: 0 number of grandchildren: 0 education level: high school Hx Recent Travel: No caffeine: No physical activity: none working smoke detector in home: Yes fire extinguisher in home: Yes carbon monox detector in home: Yes firearms in home: No do you feel safe at home: Yes victim of physical abuse: No victim of emotional abuse: No victim of sexual abuse: No would you like helpful sources: No Have you lived/traveled outside US in past 30 days?: No Contact w/someone who lives/traveled outside US past 30 days?: No Exposure to someone with infectious disease in past 14 days?: No Do you have a fever (greater than 100.4 F or 38 C)?: No Have you tested positive for COVID-19?: No Exposed to someone with COVID-19 in past 14 days?: No Do you have a sore throat?: No Do you have a cough?: No Do you have any weakness?: No Do you have any diarrhea?: No Are you experiencing any unusual bleeding?: No Do you have any muscle aches/pain?: No Do you have any abdominal pain?: No Are you experiencing loss of taste or smell?: No Other Medical History Have you received the Flu Vaccine for this season: No Have you received the Pneumonia Vaccine: No <Sagrario Fong (ED), WELLNESS SPA MANAGER - Last Filed: 01/28/25 22:03> ROS Obtained: Yes Systems reviewed as appropriate & no additional complaints except as documented Constitutional Constitutional: Reports as per HPI Physical Exam <Sagrario Fong (ED), WELLNESS SPA MANAGER - Last Filed: 01/28/25 22:03> General General appearance: alert Head Head exam: normocephalic Eye Eye exam: Present PERRL and EOMI ENT ENT exam: Present normal oropharynx, mucous membranes moist and other (Left ear with scarring present) Neck Neck exam: Present full ROM and trachea midline Respiratory Respiratory exam: Present normal lung sounds bilaterally Cardiovascular Cardiovascular exam: Present regular rate, normal rhythm, normal heart sounds, +S1 and +S2 Extremities Exam Extremities exam: Present normal inspection, full ROM and normal capillary refill Neurological Exam Neurological exam: Present alert, oriented X3 and normal gait Skin Skin exam: Present warm, dry and intact Medical Decision Making <Sagrario Fong (ED), WELLNESS SPA MANAGER - Last Filed: 01/28/25 22:03> Medical Records Medical records reviewed: Yes I reviewed the patient's medical records. Screening: Per USPSTF and CDC recommendations, given the prevalence of disease in our region, it is our hospital?s policy to screen for HIV and viral Hepatitis for all patients aged 18 and over and those with ongoing risk factors. Bald[place]ar Inquiry Pt receiving controlled substance: No Bald[place]ar was queried for this patient: No Vital Signs: 01/28/25 19:39 01/28/25 20:00 01/28/25 20:30 Temperature 98.4 F Temperature Source Oral Pulse Rate 87 77 Pulse Rate [Left] 81 Respiratory Rate 16 Blood Pressure 117/77 132/84 Blood Pressure [Right Arm] 128/83 Blood Pressure Mean [Right Arm] 98 02 Sat by Pulse Oximetry 98 98 99 Oxygen Delivery Method Room Air 01/28/25 21:01 01/28/25 21:26 Temperature 98.4 F Temperature Source Oral Pulse Rate 78 85 Pulse Rate [Left] Respiratory Rate 18 Blood Pressure 112/72 112/72 Blood Pressure [Right Arm] Blood Pressure Mean [Right Arm] 02 Sat by Pulse Oximetry 98 Oxygen Delivery Method Room Air Lab Data Lab Results 01/28/25 20:40: WBC 7.2, RBC 5.84, Hgb 17.9, Hct 50.5, MCV 86.5, MCH 30.7, MCHC 35.4, RDW 12.0, Plt Count 226, MPV 10.4, Neut % (Auto) 60.1, Lymph % (Auto) 26.4, Chester % (Auto) 7.9, Eos % (Auto) 4.7, Baso % (Auto) 0.8, Neut # (Auto) 4.3, Lymph # (Auto) 1.9, Chester # (Auto) 0.6, Eos # (Auto) 0.3, Baso # (Auto) 0.1, Sodium 141, Potassium 4.4, Chloride 100, Carbon Dioxide 29, Anion Gap 16.4 H, BUN 8 L, Creatinine 0.90, Estimated Creat Clear 108, Estimated GFR 107, Est GFR ( Amer) 129, Glucose 86, Calcium 9.0, Magnesium 2.0, Total Bilirubin 0.6, AST 34, ALT 21, Alkaline Phosphatase 77, Total Protein 7.9, Albumin 5.3 H, Globulin 2.6, Albumin/Globulin Ratio 2.0 H, Lipase 61, TSH 0.55, Free T4 0.88 01/28/25 20:40 01/28/25 20:40 Orders (Tests/Meds): ED MEDICATIONS Discontinued Medications Generic Name Dose Route Start Last Admin Trade Name Freq PRN Reason Stop Dose Admin Sodium Chloride 1,000 mls @ 999 mls/hr 01/28/25 20:04 01/28/25 20:43 Sod Chlor 0.9% 1000ml Bag IV 01/28/25 21:04 999 mls/hr .Q1H1M ONE Administration ORDERS Category Date Time Status CBC [Complete Blood Count Auto Diff] Stat Lab 01/28/25 20:40 Completed Comprehensive Metabolic Panel Stat Lab 01/28/25 20:40 Completed Free T4 (Free Thyroxine) Stat Lab 01/28/25 20:40 Completed Lipase Stat Lab 01/28/25 20:40 Completed Magnesium Stat Lab 01/28/25 20:40 Completed Thyroid Stimulating Hormone Stat Lab 01/28/25 20:40 Completed Medical Decision Narrative: patient is a 19-year-old male presenting to the emergency department for evaluation of visual changes, ear pain and dizziness. Patient is hemodynamically stable and nontoxic-appearing upon arrival, afebrile. Differential diagnosis includes brain tumor, vertigo. Workup will be conducted with hematologic labs, specific imaging. Initial inventions include crystalloid bolus. I did call to check the symptoms versus the tumor he has on the left side of his head. He states that he has a tumor in his ear on his bone. He is not sure what it is called. He does have surgery on April 08. [facility] is going to call me back for consult. Also called [place] to have them fax us the scan that they did 2 days ago on patient. Discussed with Dr. Alexis and Dr. Solis at [facility]. Discussed the visual changes, ear pain and dizziness. Patient has lack of symptoms including no nystagmus, no hearing loss at this time. No neurological problems or concerns at this time. Discussed with Dr. Alexis that if it were him he would do prednisone 60 daily, and oral antibiotic and some Cipro Dex drops for a week. 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 Typically it does cause vertiginous type symptoms including his dizziness and can cause otitis media. It can cause the destruction of the bone so he wants patient to call Dr. Gonzalez tomorrow to get into the clinic this week. <Zackary Ngo MD - Last Filed: 01/29/25 01:19> Vital Signs: 01/28/25 19:39 01/28/25 20:00 01/28/25 20:30 Temperature 98.4 F Temperature Source Oral Pulse Rate 87 77 Pulse Rate [Left] 81 Respiratory Rate 16 Blood Pressure 117/77 132/84 Blood Pressure [Right Arm] 128/83 Blood Pressure Mean [Right Arm] 98 02 Sat by Pulse Oximetry 98 98 99 Oxygen Delivery Method Room Air 01/28/25 21:01 01/28/25 21:26 Temperature 98.4 F Temperature Source Oral Pulse Rate 78 85 Pulse Rate [Left] Respiratory Rate 18 Blood Pressure 112/72 112/72 Blood Pressure [Right Arm] Blood Pressure Mean [Right Arm] 02 Sat by Pulse Oximetry 98 Oxygen Delivery Method Room Air Lab Data Lab Results 01/28/25 20:40: WBC 7.2, RBC 5.84, Hgb 17.9, Hct 50.5, MCV 86.5, MCH 30.7, MCHC 35.4, RDW 12.0, Plt Count 226, MPV 10.4, Neut % (Auto) 60.1, Lymph % (Auto) 26.4, Chester % (Auto) 7.9, Eos % (Auto) 4.7, Baso % (Auto) 0.8, Neut # (Auto) 4.3, Lymph # (Auto) 1.9, Chester # (Auto) 0.6, Eos # (Auto) 0.3, Baso # (Auto) 0.1, Sodium 141, Potassium 4.4, Chloride 100, Carbon Dioxide 29, Anion Gap 16.4 H, BUN 8 L, Creatinine 0.90, Estimated Creat Clear 108, Estimated GFR 107, Est GFR ( Amer) 129, Glucose 86, Calcium 9.0, Magnesium 2.0, Total Bilirubin 0.6, AST 34, ALT 21, Alkaline Phosphatase 77, Total Protein 7.9, Albumin 5.3 H, Globulin 2.6, Albumin/Globulin Ratio 2.0 H, Lipase 61, TSH 0.55, Free T4 0.88 Orders (Tests/Meds): ED MEDICATIONS Discontinued Medications Generic Name Dose Route Start Last Admin Trade Name Freq PRN Reason Stop Dose Admin Sodium Chloride 1,000 mls @ 999 mls/hr 01/28/25 20:04 01/28/25 20:43 Sod Chlor 0.9% 1000ml Bag IV 01/28/25 21:04 999 mls/hr .Q1H1M ONE Administration ORDERS Category Date Time Status CBC [Complete Blood Count Auto Diff] Stat Lab 01/28/25 20:40 Completed Comprehensive Metabolic Panel Stat Lab 01/28/25 20:40 Completed Free T4 (Free Thyroxine) Stat Lab 01/28/25 20:40 Completed Lipase Stat Lab 01/28/25 20:40 Completed Magnesium Stat Lab 01/28/25 20:40 Completed Thyroid Stimulating Hormone Stat Lab 01/28/25 20:40 Completed Medical Decision Narrative: patient is a 19-year-old male presenting to the emergency department for evaluation of visual changes, ear pain and dizziness. Patient is hemodynamically stable and nontoxic-appearing upon arrival, afebrile. Differential diagnosis includes brain tumor, vertigo. Workup will be conducted with hematologic labs, specific imaging. Initial inventions include crystalloid bolus. I did call to check the symptoms versus the tumor he has on the left side of his head. He states that he has a tumor in his ear on his bone. He is not sure what it is called. He does have surgery on April 08. [facility] is going to call me back for consult. Also called [place] to have them fax us the scan that they did 2 days ago on patient. Discussed with Dr. Alexis and Dr. Solis at [facility]. Discussed the visual changes, ear pain and dizziness. Patient has lack of symptoms including no nystagmus, no hearing loss at this time. No neurological problems or concerns at this time. Discussed with Dr. Alexis that if it were him he would do prednisone 60 daily, and oral antibiotic and some Cipro Dex drops for a week. 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 Typically it does cause vertiginous type symptoms including his dizziness and can cause otitis media. It can cause the destruction of the bone so he wants patient to call Dr. Gonzalez tomorrow to get into the clinic this week. I was consulted by the DEMETRICE, and we discussed the complexity of the problems being addressed. I approve the treatment and management plan for this patient's care in the emergency department, thus performing a substantive portion of the medical decision making. Zackary Ngo MD Critical Care <Sagrario Fong (ED), WELLNESS SPA MANAGER - Last Filed: 01/28/25 22:03> Critical Care Time Critical Care Time: No
--- NOTE | 2025-01-28 20:21 | ECG_ITS ---
APPROVED REPORT Exam: Resting ECG HR:85 bpm ECG Measurements Heart Rate 85 AXES ID 141 P 70 QRSd 84 QRS 95 QT 335 T 40 QTc 377 Conclusion SINUS RHYTHM BORDERLINE RIGHT AXIS DEVIATION [QRS AXIS > 90] BORDERLINE ECG Electronically signed by : DELL BHAGAT, 01/29/2025 08:29:11
[2025-01-28 20:30] VITALS: BP 132/84; PULSE 77; O2SAT 99
[2025-01-28] MEDS: 0.9 % SODIUM CHLORIDE 1000ML 1,000 ML 999 ML IV (20:43)
--- NOTE | 2025-01-28 20:54 | PC.NURSE ---
Gave the patient a sandwich and a drink per the provider
[2025-01-28 21:01] VITALS: BP 112/72; PULSE 78; O2SAT 98
[2025-01-28 21:04] LABS: Hematocrit 50.5 % (42.0-52.0); Hemoglobin 17.9 g/dL (14.1-18.0); Immature Granulocytes % 0.1 %; Mean Corpuscular HGB Conc 35.4 g/dL (31.8-35.4); Mean Corpuscular Hemoglobin 30.7 pg (27.0-31.2); Mean Corpuscular Volume 86.5 fl (80-94); Nucleated Red Blood Cells % 0 %; Platelet Count 226 K/mm3 (142-424); Red Blood Count 5.84 M/mm3 (4.60-6.20); Red Cell Distribution Width-SD 38.0 fL; White Blood Count 7.2 K/mm3 (4.8-10.8)
[2025-01-28 21:14] LABS: Alanine Aminotransferase 21 U/L (12-78); Albumin Level 5.3 g/dl (3.5-5.0); Albumin/Globulin Ratio 2.0 (1.1-1.8); Alkaline Phosphatase 77 U/L (38-126); Anion Gap 16.4 mEq/L (5-15); Aspartate Amino Transferase 34 U/L (17-59); Bilirubin,Total 0.6 mg/dl (0.2-1.3); Blood Urea Nitrogen 8 mg/dl (9-20); Calcium 9.0 mg/dl (8.4-10.2); Carbon Dioxide 29 mmol/L (22.0-30.0); Chloride 100 mmol/L (98-107); Creatinine Clearance Estimated 108 mL/min (50-200); Creatinine,Serum 0.90 mg/dl (0.66-1.25); Estimated Glomerular Filt Rate 107 ml/min (>60); GFR (African American) 129 ML/MIN (>60); Globulin 2.6 g/dL (1.3-3.2); Glucose 86 mg/dl (74-100); Lipase 61 U/L (23-300); Magnesium 2.0 mg/dl (1.6-2.3); Potassium 4.4 mmoL/L (3.5-5.1); Sodium 141 mmol/L (136-145); Total Protein,Serum 7.9 g/dl (6.3-8.2)
[2025-01-28 21:26] VITALS: BP 112/72; PULSE 85; RESP 18; TEMP 36.9; O2SAT 99
[2025-01-28 21:44] LABS: Thyroid Stimulating Hormone 0.55 uIU/mL (0.465-4.68)
[2025-01-28 22:16] LABS: Free T4 (Free Thyroxine) 0.88 ng/dl (0.78-2.19)
== END 2025-01-28 21:33 | disposition home or self-care (01) ==
PROVIDERS: Nurse Practitioner; Emergency Provider Student in an Organized Health Care Education/Training Program; PCP Internal Medicine
DX: H66.92 Otitis media, unspecified, left ear (principal); R42 Dizziness and giddiness; F17.290 Nicotine dependence, other tobacco product, uncomplicated
CPT/HCPCS: 80053; 83690; 83735; 84439; 84443; 85025; 93005; 96360; 99284; J7030

== ENCOUNTER 2025-02-13 21:48 | Emergency (ER) | payer OTHER, SELFPAY ==
--- OUTSIDE RECORDS SUMMARY | 2024-10-27 17:30 | XMS_ITS ---
Author Organization Farrah Dillard PE D [facility] Address [address] [facility] [address] [facility] [address] [place] [address] Care Team Providers Care Cylinder Sander Operator Name Role Phone Chao Calderon Primary Care Provider Chao Oconnor Unavailable [phone] Migration, Provider Unavailable Unavailable Allergies Allergen (clinical drug ingredient) Drug/Non Drug Allergy documented on EMR Reaction Allergy Type Onset Date Status azithromycin Zithromax rash Drug Allergy Acti [facility] Conversion Encounter Medications Medication SIG (Take, Route, Frequency, Duration) Notes Start Date End Date Status Vyvanse 40 MG 1 cap(s) orally once a day (in the morning); Duration: 30 day(s) 03/01/2023 Ac tive Encounters Encounter Location Date Provider Diagnosis [facility] [address] [facility] [address] [place] [phone] 10/27/2024 Provider Migration Plan Of Treatment Medication Medication Name Sig Start Date Stop Date Notes Vyvanse 40 MG 1 cap(s) orally once a day (in the morning); Duration: 30 day(s) 03/01/2023 Progress Notes * Wenceslao DELACRUZDOB:[birth year] (19 yo M)Acc No.[id number]:10/27/2024 Patient: Wenceslao VALLE Provider: Cookie sapp Migration :2005 A ge:19 Y S ex:Male Date:10/27/2024 Address:[address] [place], [place] [address] [address] [id number] Pcp:Chao Calderon Subjective: * Chief Complaints: * 1 . Multum To Medispan Conversion Encounter. * Medical History: * Allergies: Z ithromax: rash. Objective: * Vitals: Assessment: Plan: * Treatment: * * Electronic signature of Prov shirar Migration on 02/13/2025 at 10:21 PM EDT Sign off status: Pending * Provider: Cookie sapp Migration Date: 0 10/27/2024 Generated for Shanna love/Gwendolyn/Alexandreaitting on: 0 02/13/2025 10:21 PM EDT
--- OUTSIDE RECORDS SUMMARY | 2025-01-24 16:10 | XMS_ITS | Encounter Summary ---
Author Organization Healthcare Address [address] [place] [address] Care Team Providers Care Yardage Control Clerk Name Role Phone OniMarino mejia Farhat JAMA Primary Care Provider [phone] Reason for Visit * Reason Comments Cholesteatoma Left ear Hearing Loss Left ear * Consultation (Routine) - Closed Specialty Diagnoses / Procedures Referred By Contac t Referred To Contact Otolaryngology Diagnoses Unspecified cholesteatoma, left ear Conductive hearing loss, unilateral, left ear, with unrestricted hearing on the contralateral side Tympanosclerosis, bilateral Otalgia, left ear Myringotomy tube(s) status Jaz Jackson, RECOVERY COORDINATOR [address] [place] [address] Phone: tel:[phone] fax: [facility] [address], [address] [place] [address] Phone: tel: fax: Referral ID Status Reason Start Date Expiration Date V isits Requested Visits Authorized [id number] Closed Specialty Services Required 01/17/2025 07/19/2026 1 1 Encounter Details Date Type Department Care Team (Late st Contact Info) Description 01/24/2025 4:10 PM EDT Consult [facility] [address], [address] [place] [address] Екатерина Gonzalez MD [address] [place] [address] Cholesteatoma of attic of ear, left (Primary Dx) Social History Tobacco Use Types Packs/Day Years Used Date Smoking Tobacco: Never Assessed Smokeless Tobacco: Current Chew Alcohol Use Standard Drinks/Week Comments Yes 0 (1 standard drink = 0.6 oz pur e alcohol) Occasional PHQ-2 Answer Date Recorded Patient Health Questionnaire-2 Score 0 10/26/2024 PHQ-9 Answer Date Recorded Patient Health Questionnaire-9 Score 0 10/26/2024 CAGE ASSESSMENT Answer Date Recorded Cage unable to access Not on file 10/26/2024 Maximum number of drinks you had on a given occasion in the last month? 0 drinks 10/26/2024 How many alcoholic Beverages do you typically drink in a week? 0 - 7 per week 10/26/2024 Have you ever felt you should CUT down on your d rinking? 0 10/26/2024 Have you been ANNOYED by peo ple criticizing your drinking? 0 10/26/2024 Have you felt GUILTY about your drinking? 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 0 10/26/2024 CAGE Questionnaire Score 0 025 Sex and Gender Information Value Date Recorded Sex Assigned at Not on file Legal Sex Male 12:33 PM EDT Gender Identity Not on file Sexual Orientation Not on file documented as of this encounter Last Filed Vital Signs Vital Sign Reading Time Taken Comments Blood Pressure 133/80 01/24/2025 3:40 PM EDT Pulse 84 01/24/2025 3:40 PM EDT Temperature - - Respiratory Rate - - Oxygen Saturation - - Inhaled Oxygen Concentration - - Weight 63.2 kg (139 lb 5.3 oz) 01/24/2025 3:40 P M EDT Height 180.3 cm (5' 11 ) 01/24/2025 3:40 PM EDT Body Mass Index 19.43 01/24/2025 3:40 PM EDT documented in this encounter Miscellaneous Notes * Progress Notes - Екатерина Gonzalez MD - 01/24/2025 4:10 PM EDT Dear Providers, Thank you for requesting a consultation of your patient. My full consultation follows: It was a pleasure to evaluate Wenceslao Arana a pleasant 19 y.o. male who presents today for Chief Complaint Patient presents with Cholesteatoma Left ear Hearing Loss Left ear He has suffered with left ear pain and drainage for mths. Occasional blood. The hearing is worse onthe L side with occasional ringing. He has had multiple sets of ear tubes as a child. Patient denies any pain, drainage, or hearing loss in the right ear. He has been seen by the LOG STACKER OPERATOR at [facility], as well as [facility] on 11/05/24. Past medical history reviewed/non-contributory. Past surgical history reviewed/non-contributory. Past social history reviewed/non-contributory. Family history reviewed/non-contributory. Medications were reviewed. Allergies were reviewed. ROS: 14 point ROS performed and non-contributory other than that stated above. Physical Exam: Alert and oriented No apparent distress Facial function intact bilaterally HB 1/6. Facial sensation intact to light touch. Extraocular muscles intact No spontaneous or gaze-evoked nystagmus Symmetric palatal elevation Tongue protrudes midline with normal lateral movement External nose without significant lesions, nares patent on rhinoscopy No significant oral cavity or oropharyngeal lesions No cervical lymphadenopathy CV good cap refill Pulmonary symmetric chest rise Otomicroscopic exam Right: Pinna normal. Otomicroscopic exam: external auditory canal clear, tympanic membrane is intact, middle ear aerated. Left: Pinna normal. Otomicroscopic exam: external auditory canal cleared of copious mucopurulence, sinus tympani, atticcholesteatoma Results: Outside Audiometry 12/27/24 : personally reviewed R hearing wnl, L with CHL CT temporal bone 01/17/25: images personally reviewed and per report, L mastoid effusion, attic cholesteatoma, hypotympanum is clear, scutal erosion. Tegmen intact Impression/Plan: Left COM with cholesteatoma L CHL - Both ears were examined under the microscope. The attic cholesteatoma is noted on the L side withacute infection. Havre's mix applied. He may use the Ciprodex gtt prn leading up to surgery. -The pathophysiology of cholesteatoma was explained. It is my recommendation that we proceed with surgery. -Risks, benefits, alternatives were explained and we will work to schedule. -Dry ear precautions in the interim. The patient has been counseled on tobacco cessation: Not Applicable Thank you very much for allowing me to participate in the care of this patient. If you have any questions, please do not hesitate to contact me. Sincerely, Екатерина Gonzalez MD FACS Software Development Intern, Division of Otology, Neurotology, & Cranial Base Surgery, Department of Otolaryngology Head & Neck Surgery [facility] [phone] documented in this encounter Plan of Treatment Upcoming Encounters Date Type Department Care Team (Late st Contact Info) Description 02/25/2025 10:30 AM EDT Office Visit [facility] Otolaryngology [address] [place] [address] Екатерина Gonzalez MD [address] [place] [address] documented as of this encounter Visit Diagnoses Diagnosis Cholesteatoma of attic of ear, left- Primary documented in this encounter Additional Health Concerns Assessment Noted Time PHQ-9 Depression Total Score: 0 10/27/19 25 2:08 AM EDT A Body Mass Index follow-up plan has been documented for the patient 01/30/2025 11:37 AM EDT documented as of this encounter Care Teams Yardage Control Clerk Relationship Specialty Start Date End Date Marino Bunn DO [address] [facility] [address] [place] [address] PCP - General 01/24/25 documented as of this encounter
--- OUTSIDE RECORDS SUMMARY | 2025-01-30 08:50 | XMS_ITS | Encounter Summary ---
Author Organization Healthcare Address [address] [place] [address] Care Team Providers Care Organizational Effectiveness Consultant Name Role Phone Marino Bunn Primary Care Provider Reason for Visit * Reason Comments Ear Problem Fullness in left ear . Encounter Details Date Type Department Care Team (Latest Contact Info) Description 01/30/2025 8:50 AM EDT Office Visit [facility] [address] [place] [address] Екатерина Gonzalez MD [address] [place] [address] Cholesteatoma of attic of ear, [...] drink first t seven in the morning (EYE-GLOBAL COMPENSATION MANAGER) to steady your nerves or to get [...] Sign Reading Time Taken Comments Blood Pressure 125/78 01/30/2025 8:40 AM EDT Pulse 77 01/30/2025 8:40 AM EDT Temperature - - Respiratory Rate - - Oxygen Saturation - - Inhaled Oxygen Concentration - - Weight 63 kg (139 lb) 01/30/2025 8:40 AM EDT Height 180.3 cm (5' 11 ) 01/30/2025 8:40 AM EDT Body Mass Index 19.39 01/30/2025 8:40 AM EDT documented in this encounter Miscellaneous Notes * Progress Notes - Екатерина Gonzalez MD - 01/30/2025 8:50 AM EDT Dear Providers, Thank you for requesting a consultation of your patient. My full consultation follows: It was a pleasure to evaluate Wenceslao Arana a pleasant 19 y.o. male who presents today for Chief Complaint Patient presents with Ear Problem Fullness in left ear. He went to an outside ED yesterday for new dizziness. His hearing has not worsened, remains bad. Dr. Alexis was notified by the outside ED and a Rx was called in for oral steroids. He is feeling better. To review, he has suffered with left ear pain and drainage for mths. Occasional blood. The hearing is worse on the L side with occasional ringing. He has had multiple sets of ear tubes as a child. Patient denies any pain, drainage, or hearing loss in the right ear. He has been seen by the [facility] at [facility], as well as [facility] ED on 11/05/24. Past medical history reviewed/non-contributory. [...] ears were examined under the microscope. 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 -Oral steroids were called in this weekend for his new dizziness. I worry that he may have had a labyrinthitis, although he reports stable but poor hearing in that ear. He will continue th course of oral steroids. We will work to move his surgery date- tentatively this coming Tuesday. -Dry ear precautions in the interim. The patient has been counseled on tobacco cessation: Not Applicable Thank you very much for allowing me to participate in the care of this patient. If you have any questions, please do not hesitate to contact me. Sincerely, Екатерина Gonzalez MD FACS Web Site Administrator, Division of Otology, Neurotology, & Cranial Base Surgery, Department of Otolaryngology Head & Neck Surgery [facility] [phone] documented in this encounter Plan of Treatment Upcoming Encounters Date Type Department Care Team (Late st Contact Info) Description 02/25/2025 10:30 AM EDT Office Visit [facility] [address] [place] [address] Екатерина Gonzalez MD [address] [place] [address] documented as of this encounter Goals Goal Patient Goal Type Associated Problems Recent Progress Patient-Stated? Author Autogenera matthieu Goal Care Plan Autogenerated Problem No Alyssa Silva documented as of this encounter Visit Diagnoses Diagnosis Cholesteatoma of attic of ear, left- Primary documented in this encounter Additional Health Concerns Active Problems Noted Date Diagnosed Date Autogenerated Problem 01/30/2025 Assessment Noted Time PHQ-9 Depression Total Score: 0 10/27/19 25 2:08 AM EDT A Body Mass Index follow-up plan has been documented for the patient 01/30/2025 9:06 PM EDT documented as of this encounter Care Teams Organizational Effectiveness Consultant Relationship Specialty Start Date End Date Marino Bunn DO [address] [facility] [address] [address] PCP - General 01/24/25 documented as of this encounter
--- OUTSIDE RECORDS SUMMARY | 2025-02-11 05:06 | XMS_ITS | Encounter Summary ---
Author Organization Healthcare Address [address] [id number] Care Team Providers Care Electronics Instructor Name Role Phone OniMarino mejia Farhat JAMA Primary Care Provider [phone] Reason for Visit * Auth/Cert (Routine) Specialty Diagnoses / Procedures Referred By Contac t Referred To Contact Diagnoses Cholesteatoma of attic of ear, left Cholesteatoma of attic of ear, left [H71.02] Procedures LA TYMPANOPLAS/MASTOID,INTCT WALL,REBLD LA EAR CARTILAGE GRAFT TO FACE LEFT TYMPANOPLASTY AND MASTOIDECTOMY WITH OSSICULAR CHAIN RECONSTRUCTION. LEFT TYMPANOPLASTY AND MASTOIDECTOMY WITH OSSICULAR CHAIN RECONSTRUCTION. . Екатерина Gonzalez MD [address] [id number] Phone: tel: fax: [facility] [address] [place] [phone] Phone: tel: Referral ID Status Reason Start Date Expiration Date Visits Re quested Visits Authorized [id number] 1 1 Encounter Details Date Type Department Care Team (Latest Contact Info) Description 02/11/2025 5:06 AM EDT - 02/11/2025 12:28 PM EDT Hospital Encounter [facility] [address] [place] [phone] Екатерина Gonzalez MD [address] [phone] Cholesteatoma of attic of ear, left Discharge Disposition: Home or Self Care Social History Tobacco Use Types Packs/Day Years Used Date Smoking Tobacco: Former Cigarettes Smokeless Tobacco: Current Chew Tobacco Cessation:Ready to [...] drink first t seven in the morning ([employer]) to steady your nerves or to get [...] Sign Reading Time Taken Comments Blood Pressure 121/70 02/11/2025 12:00 PM EDT Pulse 88 02/11/2025 12:05 PM EDT Temperature 36.5 C (97.7 F) 02/11/2025 12:05 PM EDT Respiratory Rate 12 02/11/2025 12:05 PM EDT Oxygen Saturation 98% 02/11/2025 12:10 PM EDT Inhaled Oxygen Concentration - - Weight 60.6 kg (133 lb 9.6 oz) 02/11/2025 5:58 A M EDT Height 182.9 cm (6') 02/11/2025 5:58 AM EDT Body Mass Index 18.12 02/11/2025 5:58 AM EDT documented in this encounter Functional Status * Calculated C-SSRS Risk Score (Lifetime/Recent) Answer Date of Assessment Author No Risk Indicated 02/11/2025 6:33 AM GRISELDAT Maria De Jesus Esquivel RN * Question Answer Date of Assessment Author 1. Wish to be (Past 1 Month) No 025 6:33 AM Maria De Jesus Darby RN 2. Non-Specific Active Suici becky Thoughts (Past 1 Month) No 02/11/2025 6:33 AM GRISELDAT Michael Esquivel RN 6. Suicidal Behavior (Lifetime) No 5 6:33 AM GRISELDAT Maria De Jesus Esquivel RN documented as of this encounter Discharge Instructions * Discharge Instructions* Nicole Mcintosh RN - 02/11/2025 10:41 AM EDT Images from the original note were not included. Post-Anesthesia and Postoperative Instructions () In order to have a fast and comfortable recovery at home, please follow these instructions. A responsible adult must be present for you to be discharged. Do not drive, drink alcohol or make important decisions for 24 hours after surgery. You may feel like resting more than normal after surgery. Start slowly and be more active each day. Start slowly with liquids like 7-up, tea, apple juice or broth. Eat more as your stomach allows. Ifyou feel sick to your stomach, go back to drinking liquids. You may feel some discomfort after surgery. Take the medicine as directed by your caregiver. If your medicine makes you drowsy, do not drink alcohol, drive or operate heavy equipment for at least 24 hours after use. If you are taking antibiotics, take them until they are all gone even if you feel well. Cover your wound or bandage when showering, unless your doctor tells you differently. A small amount of drainage on your bandage is normal. Do not remove your bandage unless your doctortells you to. Please keep track of information about the medicines you take. Follow these tips to manage your medicines. Keep a list of all your medicines. Update the list when you start or stop taking a medicine. Write down changes in how you should take them. Carry your medicine list with you at all times. It will be needed if you have a health emergency . Give the list to your family doctor. Take the list to all your doctor visits. Call your doctor if you have any of the following Temperature higher than 101.5??F Chest pain or difficulty breathing Stomach sickness or throwing up that does not go away You cannot urinate by bedtime Pain is not helped by your medicine. Bandage becomes soaked with blood - Don't remove the bandage, reinforce only Swelling, redness, pain or pus from incision Questions or concerns about your surgery. In the event of an emergency, please go to the closest Emergency Room or call the Emergency Department at [phone]. Smoking and its health risks Smoking is the most preventable cause of illness and in the [place]. Cigarettes are filled with poison that goes into the lungs as you inhale. About 440,000 people every year from illnesses caused by smoking. People who smoke earlier than those who do not smoke. Heart and blood vessel disease, lung disease and ulcers are just some of the health problems that may be caused by smoking. Smoking also slows bone and wound healing and may slow your recovery from surgery. For help quitting smoking, call the National [employer] [place]'s Quitline toll free at or ask your doctor for help. Weight Management Weighing too much is not good for your health. Being overweight increases your risk of health conditions such as heart problems, high blood pressure, type 2 diabetes, and certain types of cancer. Being overweight can also increase your risk for osteoarthritis ([id number]) (joint disease), sleep apnea (abnormal breathing at night) or other respiratory (breathing) problems. Being overweight may also cause a person to feel sad or be treated differently by others. The best way to lose weight is to eat fewer calories and get regular exercise. Eating more caloriesthan you need will cause you to gain weight. Try to cut down your calories by 500 calories per day.For example, cut down on one soda (about 150 calories), a small bag of regular potato chips (about 150 calories) and one chocolate bar (about 250 calories). For most people, this change will result in a slow weight loss of about one pound a week. Exercise (for example, walk, swim, or bicycle) for at least 30 minutes on most days of the week. You will be more likely to keep weight off if you make lifelong lifestyle changes. Aim for a slow, steady weight loss. Losing even a small amount of weight can lower your risk of health problems. Ask your dietitian, motorsports technician or doctor about a weight loss goal that is right for you. Safe Use of Controlled Substances Taking a medicine may be an important part of your treatment. Your body should heal faster if you take medicine safely. Some medicines are called Controlled Substances. This means their use is controlled by law. Some of these can harm you if you do not take them safely. What can I do to make sure I take my medicine safely? Follow the instructions we give you for how to take your medicine. We will give you an instruction sheet for each of your medicines. Ask your doctor or nurse if you do not get these instructions. Some medicines make you sleepy or cloud your thinking. Do not drive, use heavy machines or do dangerous activities while taking these medicines. Read the label on the bottle each time you take your medicine. Do not take your medicine with alcohol or other sedatives. Do not take medicine after the expiration date. It is against the law to sell your medicine or share it with others. Do not drive while using your medicine. How should I store my medicine? Store it in a safe place. This will keep others from taking your medicine and help you keep track of it. Store controlled substances in a cabinet or container that you can lock. Keep it in a place that is cool, dry and out of direct sunlight. Do not leave it in the car. Do not store in a refrigerator or freezer, unless your doctor tells you to. Call your doctor right away if your medicine is lost or stolen. How should I dispose of medicine that is or no longer needed? You may have medicine left over that you do not need or should not take. You must dispose of it theright way to protect yourself and others. You can ask your local pharmacist how to dispose of them.You can also visit these Web sites to learn more about disposal of controlled substances: Drug Enforcement Agency ([place]): http://www.deadiversion.usdoj.gov/drug_disposal/takeback/index.htm National Association of Drug Diversion Investigators (NADDI): http://rxdrugdropbox.org/ [place] Office of Drug Control Policy: http://odcp.[place].gov/Prescription+Drug+Drop+Box+Sites.htm Are there concerns about or ? Before you take a medicine, tell your doctor if you are or plan to get . This could harm your baby. Tell your doctor if you breastfeed. Medicine in breast milk may be bad for your child. What if I have low or impaired vision? If you have vision problems, take extra care with your medicine. Wear your glasses when you take your medicine. Do not take medicine in the dark. What are the signs of overdose? Some controlled substances may cause breathing problems if you take more than your doctor recommends. This may lead to serious health problems or even . You and your caregivers should watch for the following signs of overdose. Slurred speech, confusion or stumbling Feeling dizzy or faint Acting drowsy or groggy Unusual snoring, gasping or snorting during sleep Hard to wake up or keep awake What should I or my caregiver do if I overdose? You or your caregiver should call 911 if you have any of these problems: Cannot wake up Cannot talk after waking up Shortness of breath, slow or light breathing, or breathing has stopped Heartbeat is slow or stopped Gurgling noise comes from the mouth or throat Body is limp or seems lifeless Face is pale or clammy Fingernails or lips look blue or purple What is a [facility] report? RAIM[employer]DO is a system that tracks prescriptions of controlled substances in [place]. The [facility] report tells your doctor if you have been prescribed controlled substances in the past. Doctors must get a RAIMUNDO report before prescribing controlled substances. What can I do if the information in my RAIMUNDO report is wrong? You or your doctor may contact the dispenser who reported the information to [employer]. If the dispenser agrees that the information should be changed, he or she can fix the RAIMUNDO report. However, the dispenser may certify that the report is correct. If that is the case, you or your doctor may then call the [place] Drug Enforcement and Professional Practices Branch at .This will start an investigation of the error. Tips for Quitting Tobacco ([place]) Tobacco and secondhand smoke can cause health problems such as cancer or heart and lung disease. They also make it harder for you to get better after an illness or surgery. Tobacco and tobacco smoke have more than 4000 chemicals. They can hurt you and those near you. Know your ???triggers?? Triggers are danger situations where you have a strong urge to use tobacco. If you know them, you can deal with them. Avoid places where you will see people use tobacco. This is very important when you first start to quit. Plus, secondhand smoke is bad for you. Change habits that give you the urge to use tobacco. If you smoked in the car, drink water instead.If you used tobacco after meals, try taking walks. Stress, anger or sadness can cause you to crave tobacco. Fight the urge by thinking of things that make you relaxed or happy - like your favorite song. The urge will often pass in a few minutes. How to cope with nicotine withdrawal Nicotine in tobacco is very addictive. Nicotine withdrawal can put you in a bad mood and cause you to crave tobacco. This can last for weeks after you quit. There are medicines that can ease these feelings. We can help our patients fight the urge to use tobacco. While you are here, your doctor can get you medicines, nicotine patches or gum. Talk to your doctor about which one is best for you. Let us help you quit You do not have to spend a lot of money to get help. You may even find help for free. Support groups: Your local health department may offer these. 's resources to help you quit: http://www.[facility]/TobaccoFree/ - Click on the Quit Here! tab. A telephone quit line: (5-370-AFDRHPM) Web sites: www.smokefree.gov, www.becomeanex.org, www.[employer] Tobacco Treatment Counselors: Call 634-772-1382. Medicare and Medicaid pay for this. employees, retirees, and their spouses or sponsored dependents can get free nicotine replacementtherapy and coaching. Visit www.[facility]/HR/Wellness/consults.html. [facility]: Free pamphlets on quitting tobacco, secondhand smoke and other health topics. Tell your doctor or nurse if you are want to know more. We can help! You can quit! It is hard to quit tobacco. Most people try to quit a few times before they stay quit for good. It will be easier to quit if you can relax and stay calm in times of stress. Quitting tobacco saves youmoney and your health! documented in this encounter Medications at Time of Discharge ciprofloxacin-de xamethasone (CiproDEX) otic suspension Administer 4 drops into the left ear 2 times a day. 01/17/2025 predniSONE (Deltasone) 20 MG tablet Take 1 tablet by mouth daily. cephalexin (Keflex) 500 MG capsuleIndicatio ns:Cholesteatoma of attic of ear, left Take 1 capsule by mouth 3 times a day for 7 days. 21 capsule 02/11/2025 5 ciprofloxacin-de xamethasone (CiproDEX) otic suspension Administer 4 drops into the left ear 2 times a day for 14 days. 7.5 mL 1 02/12/2025 5 HYDROcodone-acet aminophen (Hettick) 5-325 MG tablet Take 1 tablet by mouth every 6 hours as needed for moderate pain or severe pain. 15 tablet 02/11/2025 promethazine (Phenergan) 12.5 MG tablet Take 1 tablet by mouth every 6 hours as needed for nausea or vomiting. 15 tablet 02/11/2025 documented as of this encounter Miscellaneous Notes * Anesthesia PACU Signout - Edith Norris MD - 02/11/2025 11:50 AM EDT Patient: Wenceslao Arana Anesthesia Type: general Vitals Value Taken Time BP 134/60 02/11/25 11:45 Temp 36.5 ??C (97.7 ??F) 02/11/25 11:40 Pulse 101 02/11/25 11:49 Resp 10 02/11/25 11:49 SpO2 97 % 02/11/25 11:49 Vitals shown include unfiled device data. Anesthesia PACU Signout Patient location during evaluation: PACU Patient participation: complete - patient participated Level of consciousness: baseline and awake Pain management: adequate (pain score 0-3) Airway patency: natural airway Hydration status: acceptable PONV: none Cardiovascular status: acceptable and hemodynamically stable Respiratory status: acceptable, spontaneous ventilation, unassisted and nonlabored ventilation Discharge Disposition: home * Cony Nicole Jones RN - 02/11/2025 10:40 AM EDT Images from the original note were not included. 1052 After Tympanoplasty or Mastoidectomy - Dr. Gonzalez How do I care for myself after surgery? Medicine: ? You will be prescribed ear drops after surgery. Place 4 drops in your ear 2 times a day until your first follow up visit. This is often 7-14 days after surgery. ? Each patient feels pain differently. You will get a prescription for pain medicine to take by mouth. Most patients will not need prescription pain medicine for more than a few days. Eating and drinking: ? After surgery, you should have only clear liquids that day. You may go back to your normal foods the day after surgery. ? Some patients have nausea from the surgery or the anesthesia. Take only liquids until the nausea has passed. A few patients have very bad nausea and need anti-nausea medicine at home. Wound Care: ? You will have a hardshell dressing over the ear. You can remove this at home in 24 hours. This enrique pressure dressing and will feel tight. ? You will have a cotton ball in the ear canal after surgery. Change it with a clean cotton ball the first morning after surgery. You may then change it as needed with a clean cotton ball for the first week. ? Do not remove any packing deeper than the cotton ball. ? You may see a little blood stain on the cotton ball the first several days. This is normal. ? You may have an incision behind the ear. If so, it does not need any care. o Keep the incision dry for 48 hours after surgery. o The stitches (if any) will dissolve on their own. o You may have some drainage from this area. o If the drainage gets worse or starts to smell bad, call Dr. Gonzalez?s office. ? If some packing falls out from your ear canal, leave it out. Do not try to place the packing backinto your ear canal. Activity: ? For 2 weeks, avoid strenuous exercise or lifting anything more than 10 pounds. ? No air travel for 6 weeks. ? If you wear glasses, for 1 week after surgery, either: o Remove the arm on the operated side, or o Make sure the arm does not rest on the incision behind your ear. ? For 6 weeks, do not wear earplugs or hearing aids in your operated ear. This is important! Dizziness: You may feel dizzy after surgery. A few patients are very dizzy and need to stay in the hospital after surgery. ? It often gets better over the next few days. ? If you are very dizzy or have vertigo, please call Dr. Gonzalez?s office. Some patients need extrarest and medicines for a week or more. This is rare. Washing or showering: ? The second day after surgery, you can wash your hair. Do it gently with water and mild soap. ? Do not scrub your incisions. Do not get the incision wet for 48 hours after surgery. ? Do not let water enter the ear canal until Dr. Gonzalez says you can. o To keep the ear dry, place a cotton ball coated with Vaseline on the outside of the ear canal. Donot place it deep inside the ear canal. o This will create a water-tight seal while showering or bathing. Sneezing and blowing nose: Sneeze with your mouth open and do not blow your nose for 3 weeks. This avoids increasing the pressure in your middle ear. When should I call the doctor? Call Dr. Gonzalez?s office if you have any of these: ? Swelling, redness, or pain that is not helped by medicine ? Drainage gets worse or smells bad ? Feel very dizzy or have vertigo ? Any problems with the surgery or implant Please call if you have any questions or problems. Call the office at [phone]. After hours, call [phone] and ask for ENT cotton picker. * Op Note - Kelvin Hou MD - 02/11/2025 7:57 AM EDT OTOLARYNGOLOGY-HEAD & NECK SURGERY OPERATIVE NOTE PATIENT NAME:Debora Arana DATE OF /AGE: 2 2005, 19 y.o. DATE OF PROCEDURE: ?02/11/2025 LOCATION: [facility] PREOPERATIVE DIAGNOSIS: Cholesteatoma of left ear Conductive hearing loss of left ear PROCEDURE PERFORMED: Tympanomastoidectomy without ossicular chain reconstruction Ear to ear cartilage graft ATTENDING SURGEON: Екатерина Gonzalez MD RESIDENT SURGEON: Kelvin Hou MD OR TEAM: Anesthesiologist: Edith Norris MD Shoulder Pad Molder: Julisa Marsh DO Airline Pilot: Elzbieta Claire RN Relief Airline Pilot: Rebekah Barnes RN Relief Scrub: Sophie Navarrete Scrub Person: Maddie Alves Michael ANESTHESIA: General ASA: I DRAINS, STENTS, IMPLANTS: None SPECIMEN: Specimens ID Source Frozen? 1 Ear, Left No Description: Left mastoid contents ESTIMATED BLOOD LOSS: 20 cc. OPERATIVE FINDINGS: Tympanic Membrane: Intact with large attic retraction pocket/cholesteatoma Middle Ear: Ossicular chain intact. Large cholesteatoma sac emanating from the pars flaccida, up into the epitympanum, aditus ad antrum, and filling the antrum. Chorda Tympani: Preserved Ossicles: Intact and mobile. Cholesteatoma sac able to be peeled off the malleus and incus to leavechain intact. Facial nerve:: Bony covered; never fully exposed; stimulated appropriately at second genu at the end of the case Reconstruction: Cartilage graft to over scutum defect. Temporalis fascia to reconstruct superior aspect of tympanic membrane OPERATIVE DESCRIPTION: The patient was taken to the operating room and placed on the operating roomtable in a supine position. The head of the bed was rotated clockwise 180?? and the head was turnedso that the left ear was up. A minimal postauricular shave took place followed by the injection of 1% lidocaine with 1 100,000 epinephrine at the postauricular crease. The facial nerve monitoring electrodes were inserted into the orbicularis auris and orbicularis oculi musculature with confirmationof the monitor function prior to start of the case. The ear was then prepped and draped in a sterile fashion. The microscope was used to visualize the external auditory canal and Betadine was suctioned. The tympanic membrane was evaluated with findings listed above. Next a 4 quadrant canal injection was performed with the 1% lidocaine with 1:100,000 parts epinephrine. A sickle knife was used to make the inferior cut at the 6 o'clock position and the tympanoplasty blade was used to make the horizontal cut about 5 mm lateral to the annulus. Epi soaked gelfoam was placed. Attention was then turned to the postauricular crease where an incision was made about 5mm posterior to the crease. The skin, subcutaneous tissue, and postauricular musculature was divided so the ear could be rotated forward. A piece of temporalis fascia was harvested and placed on a silastic block to dry. A piece of tragal cartilage was harvested and placed in saline. Next, a reverse 7 periosteal flap incision was made with the Bovie. This was elevated to the spine of Henle, then the vascular strip was elevated entering the ear canal at the prior canal incision. The vascular strip cuts were made at the tympanomastoid and tympanosquamous suture lines for an H-type flap. The tympanomeatal flap was elevated until the annulus was identified inferiorly. This was lifted from its sulcus and into the middle ear and the hypotympanum. As the tympanomeatal flap was elevated superiorly, the chorda tympani nerve was identified. Middle ear findings are listed above. Attention was then turned to the mastoidectomy. A series of cutting and jeanette burs and continuoussuction irrigation were used to open the mastoid cavity, skeletonizing the tegmen and following down to the mastoid antrum. The root of the zygoma was followed forward toward the aditus ad antrum andepitympanum where the cholesteatoma sac was exposed. The DB1 was used to reflect the cholesteatoma sac out of the antrum and through the aditus up into the epitympanum. Careful attention was taken toensure that all skin was removed from the mastoid cavity. Attention was turned back to the ear canal. The tympanic membrane was evaluated and the pars flaccida retraction pocket remained. This was further elevated anteriorly off of the scutum defect. At this point, the cholesteatoma sac was seen adherent to the incudostapedial joint and the lateral process and handle of the malleus. Using a sickle knife, the sac was carefully elevated away from the ossicles. At this point, an alligator was used to gently pull the cholesteatoma sac inferiorly into the middle ear space. A straight scissor was used to incise the tympanic membrane just inferior to the retraction pocket/sac. This was then removed and sent for pathology. Various instruments were used toensure that no further skin remnants were present in the middle ear and epitympanum. We then turnedour attention to reconstruction. The harvested cartilage was cut to size and used to repair the pars flaccida defect. The fascia waslaid just superficial to this and the remnant tympanic membrane was laid overtop. The tympanomeatalflap was laid back down and I packed lateral to the graft and flap using Floxin soaked Gelfoam. Thevascular strip was reapproximated and the packing was placed all the way to the bony cartilaginous junction. The facial nerve was stimulated at the second genu from the mastoid cavity. The Palva flapwas reapproximated using a running 3-0 Vicryl suture. The subcutaneous layer was closed using interrupted 4-0 Vicryl sutures. The skin was closed using a running 5 0 fast gut suture. The [place] dressing was applied and the patient was awakened from anesthesia and taken to the postoperative care unit without complication. COMPLICATIONS: None Immediate Cosigned by Екатерина Gonzalez MD at 02/11/2025 2:25 PM EDT Associated attestation - Екатерина Gonzalez MD - 02/11/2025 2:25 PM EDT I was available for the critical portions of the procedure(s). * H&P - Kelvin Hou MD - 02/11/2025 6:57 AM EDT H&P reviewed without significant changes. To OR as scheduled. Consent obtained. Left ear marked. It was a pleasure to evaluate Wenceslao [...] ear. He has been seen by the DIRECTIONAL DRILLER at [facility], as well as [facility] on 11/05/24. Past medical [...] examined under the microscope. The debris and [place]'s mix remains on the L side. -Oral steroids were called in this weekend for his new dizziness. I worry that he may have had a labyrinthitis, although he reports stable but poor hearing in that ear. He will continue th course of oral steroids. We will work to move his surgery date- tentatively this coming Tuesday. -Dry ear precautions in the interim. Cosigned by Екатерина Gonzalez MD at 02/11/2025 7:24 AM EDT Associated attestation - Екатерина Gonzalez MD - 02/11/2025 7:24 AM EDT I saw and evaluated the patient. I discussed the case with the resident/fellow and agree with the findings and plan as documented. * Preprocedure Instructions - Magui Garcia RN - 01/31/2025 10:34 AM EDT Home Medication Instructions Current Medications Medication Instructions cefdinir (Omnicef) 300 MG capsule Take as needed ciprofloxacin-dexamethasone (CiproDEX) otic suspension Hold day of surgery predniSONE (Deltasone) 20 MG tablet Take as needed General Preoperative Instructions You will be called the business day before surgery with your arrival time Do not eat after midnight. Encouraged to drink clear liquids up until 2 hours prior to arrival time. No alcohol or smoking prior to surgery Arrive on time to avoid delays Parking/Registration procedure explained You MUST have a responsible adult available for transport to and from hospital Visitation policy for the day of surgery reviewed Bring insurance card, photo ID, along with power of insurance attorney, guardianship or advanced directives if applicable Do not bring money, jewelry or other valuables Hibiclens bathing instructions reviewed if applicable Notify surgeon of fever, illness, any changes or if you decide not to have surgery * PAT Phone Note - Magui Garcia RN - 01/31/2025 10:33 AM EDT HPI Wenceslao Arana is a 19 y.o. 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 Date scheduled is 02/11/2025. Past Medical History[1] Family History[1] Social History[1] SURGICAL HISTORY: Surgical History[1] Allergies[1] MEDICATIONS: Current Medications[1] Magui Garcia RN [1] Past Medical History: Diagnosis Date Anxiety Dental disease chipped teeth Depression Dizziness Hearing loss Left Ear Tachycardia [1] Family History Problem Relation Name Age of Onset Heart disease Father [1] Social History Tobacco Use Smoking status: Former Types: Cigarettes Smokeless tobacco: Current Types: Chew Vaping Use Vaping status: Every Day Substances: Nicotine Substance Use Topics Alcohol use: Yes Comment: Occasional Drug use: Not Currently [1] Past Surgical History: Procedure Laterality Date ADENOIDECTOMY MYRINGOTOMY W/ TUBES TYMPANOSTOMY TUBE PLACEMENT Bilateral Patient does not know when. [1] Allergies Allergen Reactions Azithromycin Anaphylaxis [1] No current facility-administered medications for this encounter. Current Outpatient Medications: cefdinir, Take 1 capsule by mouth 2 times a day. ciprofloxacin-dexamethasone, Administer 4 drops into the left ear 2 times a day. predniSONE, Take 1 tablet by mouth daily. documented in this encounter Plan of Treatment Upcoming Encounters Date Type Department Care Team (Late st Contact Info) Description 02/25/2025 10:30 AM EDT Office Visit [facility] Otolaryngology [address] [place] [address] Екатерина Gonzalez MD [address] [facility] [address] [place] [address] documented as of this encounter Goals Goal Patient Goal Type Associated Problems Recent Progress Patient-Stated? Author Autogenera matthieu Goal Care Plan Autogenerated Problem No Alyssa Silva documented as of this encounter Procedures Procedure Name Priority Date/Time Associated Diagnosis Comments SURGICAL PATHOLOGY EXAM Routine 02/11/2025 9:49 AM EDT Cholesteatoma of attic of ear, left RECONSTRUCTION, OSSICULAR CHAIN 02/11/2025 7:18 AM EDT Cholesteatoma of attic of ear, left Special Needs bed 180 requiring airway extension, endotracheal tube off to nonoperative side, no long acting paralysis LA EAR CARTILAGE GRAFT TO FACE 02/11/2025 7:18 AM EDT Cholesteatoma of attic of ear, left Special Needs bed 180 requiring airway extension, endotracheal tube off to nonoperative side, no long acting paralysis LA TYMPANOPLAS/MAST OID,INTCT WALL,REBLD 02/11/2025 7:18 AM EDT Cholesteatoma of attic of ear, left Special Needs bed 180 requiring airway extension, endotracheal tube off to nonoperative side, no long acting paralysis documented in this encounter Results * Surgical Pathology Exam (02/11/2025 9:49 AM EDT) Case Report Surgical Pathology Case: [id number] Authorizing Provider: Екатерина Gonzalez MD Collected: 02/11/2025 0949 Ordering Location: [facility] Received: 02/11/2025 1220 Surgery Pathologist: Pedro Pablo Waite MD Specimen: Ear, Left, Left mastoid contents 02/13/2025 10:01 AM EDT [facility] Final Diagnosis A. 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 LEFT MASTOID CONTENTS Received in formalin labeled left mastoid contents is an aggregate of pink-tilley soft tissue measuring 0.7 x 0.5 x 0.4 cm. The specimen is entirely submitted in cassette A1. Jenny Babcock 02/13/2025 10:01 AM EDT [facility] Note: A resident was involved in the service. I attest I examined the relevant preparations for the specimens and confirmed the diagnosis or interpretation. 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] us Екатерина Gonzalez MD LAB PATHOLOGY ORDERABLES Final Result [facility] [address] [place] [address] documented in this encounter Visit Diagnoses Diagnosis Cholesteatoma of attic of ear, left- Primary documented in this encounter Admitting Diagnoses Diagnosis Cholesteatoma of attic of ear, left documented in this encounter Administered Medications Inactive Administered Medications - up to 3 most recent administrations Medication Order MAR Action Action Date Dose Rate Site acetaminophen (Tylenol) tablet 1,000 mg 1,000 mg, Oral, Once, 1 dose, On Tue02/11/25 at 0700, Routine, Holding - Preprocedure Given 02/11/2025 6:52 AM EDT 1,000 mg aprepitant (Emend) capsule 40 mg 40 mg, Oral, Once, 1 dose, On Tue02/11/25 at 0700, Routine, Holding - Preprocedure Given 02/11/2025 6:52 AM EDT 40 mg droperidol (Inapsine) injection 0.625 mg 0.625 mg, Intravenous, Once as needed, 2 doses, Starting on Tue02/11/25 at 0638, Until Tue02/11/25 at 1428, Routine, Recovery (Phase I only), nausea, vomiting fentaNYL (Sublimaze) injection 50 mcg 50 mcg, Intravenous, Every 5 min PRN, 2 doses, Starting on Tue02/11/25 at 0637, Until Tue02/11/25 at 1428, Routine, Recovery (Phase I only), pain score of 5-8 out of 10 Given 02/11/2025 11:23 AM EDT 50 mcg lactated Ringer's infusion 100 mL/hr, Intravenous, Continuous, Starting on Tue02/11/25 at 0700, Until Tue02/11/25 at 1428, Routine Restarted 02/11/2025 7:29 AM EDT Continued by Anesthesia 02/11/2025 7:28 AM EDT 100 mL/hr New Bag 02/11/2025 7:14 AM EDT 100 mL/hr 100 mL/hr lidocaine (Xylocaine) 1 % injection 0.5 mL 0.5 mL, Injection, Once as needed, 1 dose, Starting on Tue02/11/25 at 0606, Until Tue02/11/25 at 0652, Routine, Holding - Preprocedure, If needed to start an IV. Given 02/11/2025 6:52 AM EDT 0.5 mL naloxone (Narcan) injection 0.4 mg 0.4 mg, Intravenous, As needed, Starting on Tue02/11/25 at 0638, Until Tue02/11/25 at 1428, Routine, Recovery (Phase I only), respiratory depression ondansetron (Zofran) injection 4 mg 4 mg, Intravenous, Once as needed, 1 dose, Starting on Tue02/11/25 at 0637, Until Tue02/11/25 at 1428, Routine, Recovery (Phase I only), nausea, vomiting oxyCODONE (Roxicodone) immediate release tablet 10 mg 10 mg, Oral, Once as needed, 2 doses, Starting on Tue02/11/25 at 0637, Until Tue02/11/25 at 1428, Routine, Recovery (Phase I only), pain score of 6-8 out of 10 oxyCODONE (Roxicodone) immediate release tablet 5 mg 5 mg, Oral, Once as needed, 2 doses, Starting on Tue02/11/25 at 0637, Until Tue02/11/25 at 1428, Routine, Recovery (Phase I only), pain score of 3-5 out of 10 scopolamine (Transderm-Scop) patch 1 patch 1 patch, Transdermal, Once, 1 dose, On Tue02/11/25 at 0700, Routine, Holding - Preprocedure Medication Applied 02/11/2025 6:52 AM EDT 1 patch Behind Right Ear sodium chloride 0.9 % flush 10 mL 10 mL, Intravenous, Every 8 hours PRN, Starting on Tue02/11/25 at 0606, Until Tue02/11/25 at 1428, Routine, Holding - Preprocedure, line care documented in this encounter Active and Recently Administered Medications Times are shown in EDT. Scheduled Medication Order 02/09/2025 02/10/2025 02/11/2025 acetaminophen (Tylenol) tablet 1,000 mg (COMPLETED) 1,000 mg, Oral, Once, 1 dose, On Tue02/11/25 at 0700, Routine, Holding - Preprocedure 0652 (Given - Provid er: Maria De Jesus Esquivel RN) aprepitant (Emend) capsule 40 mg (COMPLETED) 40 mg, Oral, Once, 1 dose, On Tue02/11/25 at 0700, Routine, Holding - Preprocedure 0652 (Given - Provid er: Maria De Jesus Esquivel RN) ceFAZolin (Ancef) injection 2 g (COMPLETED) 2 g, Intravenous, Once, 1 dose, On Tue02/11/25 at 0830, Routine, Anesthesia Intraprocedure 0742 (Given - Provid er: Julisa Marsh DO) scopolamine (Transderm-Scop) patch 1 patch 1 patch, Transdermal, Once, 1 dose, On Tue02/11/25 at 0700, Routine, Holding - Preprocedure 0652 (Medication Cole lied - Provider: Maria De Jesus Esquivel RN)1228 (Due: Medication Removed - Provider: Automatic Discharge Provider - Comment: Time automatically adjusted from order being discontinued) Continuous Medication Order 02/09/2025 02/10/2025 02/11/2025 lactated Ringer's infusion 100 mL/hr, Intravenous, Continuous, Starting on Tue02/11/25 at 0700, Until Tue02/11/25 at 1428, Routine 0714 (New Bag - Prov ider: Maria De Jesus Esquivel RN)0728 (Continued by Anesthesia - Provider: Julisa Marsh DO)0728 (Paused - Provider: Julisa Marsh DO - Comment: Switch to gravity)0729 (Restarted - Provider: Julisa Marsh DO)1020 (Canceled Entry - Provider: uJlisa Marsh DO)1039 (Stopped - Provider: Julisa Marsh DO) PRN Medication Order 02/09/2025 02/10/2025 02/11/2025 droperidol (Inapsine) injection 0.625 mg 0.625 mg, Intravenous, Once as needed, 2 doses, Starting on Tue02/11/25 at 0638, Until Tue02/11/25 at 1428, Routine, Recovery (Phase I only), nausea, vomiting 1038 (Canceled Entry - Provider: Automatic Discharge Provider - Comment: Automatically canceled at discontinue of medication order) EPINEPHrine (Adrenalin) 1 MG/ML injection (CANCELED) As needed, Starting on Tue02/11/25 at 0826, Until Tue02/11/25 at 1058, Routine, Intraprocedure 0826 (Given - Provid er: Екатерина Gonzalez MD - Comment: on intraoperative field) fentaNYL (Sublimaze) injection 50 mcg 50 mcg, Intravenous, Every 5 min PRN, 2 doses, Starting on Tue02/11/25 at 0637, Until Tue02/11/25 at 1428, Routine, Recovery (Phase I only), pain score of 5-8 out of 10 1123 (Given - Provid er: Nicole Mcintosh RN) lidocaine (Xylocaine) 1 % injection 0.5 mL (COMPLETED) 0.5 mL, Injection, Once as needed, 1 dose, Starting on Tue02/11/25 at 0606, Until Tue02/11/25 at 0652, Routine, Holding - Preprocedure, If needed to start an IV. 0652 (Given - Provid er: Maria De Jesus Esquivel RN) lidocaine-EPINEPHrine (Xylocaine W/EPI) 1 %-[id number] injection (CANCELED) As needed, Starting on Tue02/11/25 at 0826, Until Tue02/11/25 at 1058, Routine, Intraprocedure 0826 (Given - Provid er: Екатерина Gonzalez MD) naloxone (Narcan) injection 0.4 mg 0.4 mg, Intravenous, As needed, Starting on Tue02/11/25 at 0638, Until Tue02/11/25 at 1428, Routine, Recovery (Phase I only), respiratory depression ofloxacin (Ocuflox) 0.3 % ophthalmic solution (CANCELED) As needed, Starting on Tue02/11/25 at 0827, Until Tue02/11/25 at 1058, Routine, Intraprocedure 0827 (Given - Provid er: Екатерина Gonzalez MD) ondansetron (Zofran) injection 4 mg 4 mg, Intravenous, Once as needed, 1 dose, Starting on Tue02/11/25 at 0637, Until Tue02/11/25 at 1428, Routine, Recovery (Phase I only), nausea, vomiting oxyCODONE (Roxicodone) immediate release tablet 10 mg(Linked Group 1) 10 mg, Oral, Once as needed, 2 doses, Starting on Tue02/11/25 at 0637, Until Tue02/11/25 at 1428, Routine, Recovery (Phase I only), pain score of 6-8 out of 10 1038 (Canceled Entry - Provider: Automatic Discharge Provider - Comment: Automatically canceled at discontinue of medication order)1123 (See Alternative - Provider: Nicole Mcintosh RN) oxyCODONE (Roxicodone) immediate release tablet 5 mg(Linked Group 1) 5 mg, Oral, Once as needed, 2 doses, Starting on Tue02/11/25 at 0637, Until Tue02/11/25 at 1428, Routine, Recovery (Phase I only), pain score of 3-5 out of 10 1123 (Not Given - Pr ovider: Nicole Mcintosh RN - Reason: Patient/family refused) sodium chloride 0.9 % flush 10 mL(Linked Group 2) 10 mL, Intravenous, Every 8 hours PRN, Starting on Tue02/11/25 at 0606, Until Tue02/11/25 at 1428, Routine, Holding - Preprocedure, line care Linked Groups Order Group 1: oxyCODONE (Roxicodone) immediate release tablet 5 mgJump to med 5 mg, Oral, Once as needed, 2 doses, Starting on Tue02/11/25 at 0637, Until Tue02/11/25 at 1428, Routine, Recovery (Phase I only), pain score of 3-5 out of 10 Or oxyCODONE (Roxicodone) immediate release tablet 10 mgJump to med 10 mg, Oral, Once as needed, 2 doses, Starting on Tue02/11/25 at 0637, Until Tue02/11/25 at 1428, Routine, Recovery (Phase I only), pain score of 6-8 out of 10 Group 2: Insert peripheral IV (CANCELED) Once, On Tue02/11/25 at 0607, For 1 occurrence, Holding - Preprocedure And Saline lock IV (CANCELED) Once, On Tue02/11/25 at 0607, For 1 occurrence, Holding - Preprocedure And sodium chloride 0.9 % flush 10 mLJump to med 10 mL, Intravenous, Every 8 hours PRN, Starting on Tue02/11/25 at 0606, Until Tue02/11/25 at 1428, Routine, Holding - Preprocedure, line care documented in this encounter Additional Health Concerns Active Problems Noted Date Diagnosed Date Autogenerated Problem 01/30/2025 Assessment Noted Time PHQ-9 Depression Total Score: 0 10/27/19 2:08 AM EDT A Body Mass Index follow-up plan has been documented for the patient 01/30/2025 9:06 PM EDT documented as of this encounter Care Teams Electronics Instructor Relationship Specialty Start Date End Date Marino Bunn DO [address] [place] [address] [place] [address] PCP - General 01/24/25 documented as of this encounter
--- OUTSIDE RECORDS SUMMARY | 2025-02-11 07:28 | XMS_ITS | Encounter Summary ---
Author Organization Healthcare Address [address] [id number] Care Team Providers Care Tobacco Conditioner Name Role Phone OinMarino Farhat JAMA Primary Care Provider [phone] Reason for Visit * Auth/Cert (Routine) Specialty Diagnoses / Procedures Referred By Contac t Referred To Contact Diagnoses Cholesteatoma of attic of ear, left Cholesteatoma of attic of ear, left [H71.02] Procedures RI TYMPANOPLAS/MASTOID,INTCT WALL,REBLD RI EAR CARTILAGE GRAFT TO FACE LEFT TYMPANOPLASTY AND MASTOIDECTOMY WITH OSSICULAR CHAIN RECONSTRUCTION. LEFT TYMPANOPLASTY AND MASTOIDECTOMY WITH OSSICULAR CHAIN RECONSTRUCTION. . Екатерина Gonzalez MD [address] [facility] [address] [place] [address] Phone: tel: fax: [facility] [address] [place] [phone] Phone: tel: Referral ID Status Reason Start Date Expiration Date Visits Re quested Visits Authorized [id number] 1 1 Encounter Details Date Type Department Care Team (Late st Contact Info) Description 02/11/2025 7:28 AM EDT Anesthesia Event [facility] [address] [place] [phone] Edith Norris MD [address] [place] [address] Julisa Marsh DO [address] [id number] Anesthesia Record Procedure Summary Procedure Name Responsible Anesthesiologist Anesthesia Start Time Anesthesia Stop Time LEFT TYMPANOPLASTY AND MASTOIDECTOMY (Left) Edith Norris MD 02/11/25 0728 02/11/25 1106 Events Date Time Event Comment 02/11/2025 0721 0728 In Room 0728 ANPATVER 0728 An Start The patient was reevaluated immediately before sedation and remains eligible for anesthesia plan. 0728 An Start Data 0731 An Induction The patient was reevaluated immediately before moderate or deep sedation use and before anesthesia induction. 0733 An Intubation 0736 Anesthesia Ready 0757 Proc Start 1047 Proc Fin 1056 An Extubation 1058 an stop data 1058 Out of Room 1106 Handoff to Receiving I compl eted my handoff to the receiving clinician during which we: 1. Identified the patient 2. Identified the responsible provider 3. Reviewed the pertinent medical history 4. Discussed the surgical course 5. Reviewed intra-op anesthesia management and issues during anesthesia 6. Set expectations for post-procedure period 7. Allowed opportunity for questions and acknowledgement of understanding. 1106 An Stop Meds Name Total midazolam (Versed) injection 1 mg/mL 2 m g fentaNYL (Sublimaze) injection 50 mcg/mL 75 mcg lidocaine PF (Xylocaine-MPF) 2% 60 mg succinylcholine (Anectine) injection 20 mg/mL 80 mg dexamethasone (Decadron) injection 4 mg/ mL 8 mg phenylephrine (Lopez-Synephrine) prefilled syringe 1 mg/10 mL 100 mcg ondansetron (Zofran) injection 2 mg/mL 4 mg propofol (Diprivan) infusion 10 mg/mL 54 0.86 mg ceFAZolin (Ancef) injection 2 g 2 g propofol (Diprivan) injection 10 mg/mL 1 50 mg ketorolac (Toradol) injection 30 mg/mL 3 0 mg sodium chloride 0.9 % infusion 407.5 mL lactated Ringer's infusion 1,000 mL * Agents Name O2 Sevoflurane Inspired Sevoflurane N2O Inspired N2O * Blood No blood administrations on file. Lines, Drains, and Airways Type Details Placement Removal Wound 02/11/25; N; Yes; Aguilar rgical; Ear; Left 02/11/25 0000 by Elzbieta Claire RN Peripheral IV Placement Date: 01/23 08/18; Placement Time: 0710; Catheter Size: 20 G; Orientation: Anterior, Right; Location: Forearm; Site Prep: Chlorhexidine ; Local Anesth: Injectable; Technique: Anatomical landmarks; Inserted by: Farhat Esquivel; Insertion Attempts: 1; Patient Tolerance: Tolerated well; Removal Date: 02/11/25; Removal Time: 1221 02/11/25 0710 by Maria De Jesus Esquivel RN 02/11/25 1221 by Nicole Mcintosh RN ETT Placement Date: 01/23 08/18; Placement Time: 0733 (created via procedure documentation); Mask Ventilation: 1; Technique: Direct laryngoscopy; Type: ETT - single; Single Lumen Tube Size: 8 mm; Cuffed: Yes; Laryngoscope: Jennifer; Blade Size: 3; Location: Oral; Grade View: Grade IIb; Insertion Attempts: 1; Placement Verification: Auscultation, Capnometry; Airway Comments: Atraumatic. No change to dentition. 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 0 10/26/2024 CAGE Questionnaire Score 0 025 Sex and Gender Information Value Date Recorded Sex Assigned at Not on file Legal Sex Male 12:33 PM EDT Gender Identity Not on file Sexual Orientation Not on file documented as of this encounter Functional Status * Calculated C-SSRS Risk Score (Lifetime/Recent) Answer Date of Assessment Author No Risk Indicated 02/11/2025 6:33 AM EDT Maria De Jesus Esquivel RN * Question Answer Date of Assessment Author 1. Wish to be (Past 1 Month) No 025 6:33 AM GRISELDAT Maria De Jesus Esquivel RN 2. Non-Specific Active Suici becky Thoughts (Past 1 Month) No 02/11/2025 6:33 AM EDT Michael Esquivel RN 6. Suicidal Behavior (Lifetime) No 6:33 AM EDT Maria De Jesus Esquivel RN documented as of this encounter Miscellaneous Notes * Anesthesia Postprocedure Evaluation - Edith Norris MD - 02/11/2025 11:07 AM EDT Patient: Wenceslao Arana Anesthesia Type: general Vitals Value Taken Time BP 92/51 02/11/25 11:07 Temp 36.8 02/11/25 11:07 Pulse 89 02/11/25 11:05 Resp 17 02/11/25 11:05 SpO2 98 % 02/11/25 11:05 Anesthesia Post Evaluation Patient location during evaluation: PACU Patient participation: complete - patient participated Level of consciousness: sedated Pain management: adequate (pain score 0-3) Airway patency: natural airway Cardiovascular status: acceptable and hemodynamically stable Respiratory status: acceptable, blow-by oxygen, oral airway, spontaneous ventilation and nonlaboredventilation Hydration status: acceptable Nausea/Vomiting: No No notable events documented. * Anesthesia Procedure Notes - Edith Norris MD - 02/11/2025 7:54 AM EDTAssociated Order(s): Airway Airway Date/Time: 02/11/2025 7:33 AM Reason: elective Airway not difficult General Information and Staff Patient location during procedure: OR Anesthesiologist: Edith Norris MD Resident: Julisa Marsh DO Performed: Resident Patient Condition Indications for airway management: anesthesia Patient position: sniffing MILS not maintained throughout Final Airway Details Final airway type: endotracheal airway Successful airway: ETT Cuffed: yes Successful intubation technique: direct laryngoscopy Adjuncts used in placement: intubating stylet and cricoid pressure Endotracheal tube insertion site: oral Blade: Jeninfer Blade size: #3 ETT size (mm): 8.0 Cormack-Lehane Classification: grade IIb - view of arytenoids or posterior of glottis only Placement verified by: chest auscultation and capnometry Cuff volume (mL): 8 Measured from: lips ETT to lips (cm): 22 Additional Comments Atraumatic. No change to dentition. Anterior airway. * Anesthesia Preprocedure Evaluation - Edith Norris MD - 02/11/2025 7:19 AM EDT Anesthesiologist: Edith Norris MD Prism Inspector: Julisa Marsh DO Patient: Wenceslao Arana is a 19 y.o. male with body mass index is 18.12 kg/m??. who presents with Cholesteatoma of attic of ear, left, now for LEFT TYMPANOPLASTY AND MASTOIDECTOMY WITH OSSICULAR CHAIN RECONSTRUCTION. (Left), . (Left) Procedure Information Date/Time: 02/11/25 0730 Procedures: LEFT TYMPANOPLASTY AND MASTOIDECTOMY WITH OSSICULAR CHAIN RECONSTRUCTION. (Left) - Requested time: 3 hours . (Left) [facility] Surgeons: Екатерина Gonzalez MD Relevant Problems No relevant active problems ALLERGIES Allergies[1] NPO STATUS Date of Last Liquid: 02/10/25 Time of Last Liquid: 2330 Date of Last Solid: 02/10/25 Time of Last Solid: 2100 Last Intake Type: Carbohydrate drink Time of Last Void: 033 Past Medical History[2] AIRWAY HISTORY Airway Detailed Review Displaying the 20 most recent records No records found. MEDICATIONS Outpatient Current Outpatient Medications Medication Instructions cefdinir (OMNICEF) 300 mg, 2 times daily ciprofloxacin-dexamethasone (CiproDEX) otic suspension 4 drops, 2 times daily predniSONE (DELTASONE) 20 mg, Daily Scheduled Current Scheduled Medications[3] PRNs Current PRN Medications[4] SURGICAL HX: Surgical History[5] SOCIAL HX: Social History[6] OBJECTIVE DATA LABS No results found for: WBC , HGB , HCT , MCV , PLT No results found for: CALCIUM , BUN , CREATININE , BCR , NA , K , CL , CO2 , AG , CA Type and Screen No results found for: ABO No results found for: HGBA1C No results found for: PGLU , GLUCOSE ABG No results found for: PHART , JBW5AAN , PO2ART , SO2ART , BEART , ZMY0COR , HCTART , SODIUMART , POTASSIUMART , POCTCL , POCGLU , IONCALART , LACTATE No results found for: PH , PCO2 , PO2 , [id number] , BASEEXC , HCTSYR , KSYR , CLSYR , GLUSYR , CAION , LACTATE ECHO No echocardiogram results found for the past 12 months PFTs No results found for: CZC2GUZ , AMT9IZGN , ZPG6EDK , FVCPRED BP Readings from Last 5 Encounters: 02/11/25 124/82 01/30/25 125/78 01/24/25 133/80 10/26/24 124/85 Physical Exam Airway Mallampati: II Mouth opening: normal Neck ROM: full Upper lip bite test: III Cardiovascular Rhythm: regular Rate: normal Dental - normal exam Pulmonary Breath sounds clear to auscultation Neurological Oriented: normal to time, normal to place and normal to person and oriented to person, place and time Skin Skin: warm and dry Musculoskeletal Extremities Anesthesia Plan ASA 1 Plan was reviewed with: attending Anesthesia technique(s) discussed with the patient/family: general Anesthesia plan agreed upon was: general Anesthetic plan and risks discussed with patient and parent/guardian. ROS Anesthesia: history of previous anesthesia. Does not have a history of anesthetic complications and malignant hyperthermia. Cardiovascular: Negative cardio ROS. Does not have chest pain. Respiratory: Negative respiratory ROS.no asthma: HEENT: Does not have chipped teeth or loose teeth. Neurological: no seizures: Did not have a cerebrovascular accident. Gastrointestinal: Negative GI ROS. Endocrine/Metabolic: thyroid disorder. Endo/Met additional comments: Hyperthyroidism - not treated [1] Allergies Allergen Reactions Azithromycin Anaphylaxis [2] Past Medical History: Diagnosis Date Anxiety Dental disease chipped teeth Depression Dizziness Hearing loss Left Ear Tachycardia [3] scopolamine, 1 patch, Transdermal, Once [4] PRN medications: droperidol, fentaNYL, naloxone, ondansetron, oxyCODONE OR oxyCODONE, Insert peripheral IV AND Saline lock IV AND sodium chloride [5] Past Surgical History: Procedure Laterality Date ADENOIDECTOMY MYRINGOTOMY W/ TUBES TYMPANOSTOMY TUBE PLACEMENT Bilateral Patient does not know when. [6] Social History Tobacco Use Smoking status: Former Types: Cigarettes Smokeless tobacco: Current Types: Chew Vaping Use Vaping status: Every Day Substances: Nicotine Substance Use Topics Alcohol use: Yes Comment: Occasional Drug use: Not Currently documented in this encounter Plan of Treatment Upcoming Encounters Date Type Department Care Team (Late st Contact Info) Description 02/25/2025 10:30 AM EDT Office Visit [facility] Otol[facility]ology [address] [place] [address] Екатерина Gonzalez MD [address] [place] [address] documented as of this encounter Goals Goal Patient Goal Type Associated Problems Recent Progress Patient-Stated? Author Autogenera matthieu Goal Care Plan Autogenerated Problem No Alyssa Silva documented as of this encounter Procedures Procedure Name Priority Date/Time Associated Diagnosis Comments PB ANESTHESIA PLACEHOLDER Routine 02/11/2025 7:33 AM EDT RI AN ELECTIVE ENDOTRACHEAL AIRWAY Routine 02/11/2025 7:33 AM EDT documented in this encounter Results * RI AN ELECTIVE ENDOTRACHEAL AIRWAY, PB ANESTHESIA PLACEHOLDER (02/11/2025 7:33 AM EDT) Narrative Edith Norris MD - 02/11/2025 7:33 AM EDT Edith Norris MD 02/11/2025 8:20 AM Airway Date/Time: 02/11/2025 7:33 AM Reason: elective Airway not difficult General Information and Staff Patient location during procedure: OR Anesthesiologist: Edith Norris MD Resident: Julisa Marsh DO Performed: Resident Patient Condition Indications for airway management: anesthesia Patient position: sniffing MILS not maintained throughout Final Airway Details Final airway type: endotracheal airway Successful airway: ETT Cuffed: yes Successful intubation technique: direct laryngoscopy Adjuncts used in placement: intubating stylet and cricoid pressure Endotracheal tube insertion site: oral Blade: Jennifer Blade size: #3 ETT size (mm): 8.0 Cormack-Lehane Classification: grade IIb - view of arytenoids or posterior of glottis only Placement verified by: chest auscultation and capnometry Cuff volume (mL): 8 Measured from: lips ETT to lips (cm): 22 Additional Comments Atraumatic. No change to dentition. Anterior airway. Edith Norris MD ANESTHESIA ORDERABLES Final Result documented in this encounter Visit Diagnoses Not on filedocumented in this encounter Administered Medications Inactive Administered Medications - up to 3 most recent administrations Medication Order MAR Action Action Date Dose Rate Site ceFAZolin (Ancef) injection 2 g 2 g, Intravenous, Once, 1 dose, On 02/11/25 at 0830, Routine, Anesthesia Intraprocedure Given 02/11/2025 7:42 AM EDT 2 g dexamethasone (Decadron) injection Intravenous, As needed, Starting on Tue02/11/25 at 0742, Until Tue02/11/25 at 1106, Routine, Anesthesia Intraprocedure Given 02/11/2025 7:42 AM EDT 8 mg fentaNYL (Sublimaze) injection Intravenous, As needed, Starting on Tue02/11/25 at 0731, Until Tue02/11/25 at 1106, Routine, Anesthesia Intraprocedure Given 02/11/2025 10:38 AM EDT 25 mcg Given 02/11/2025 7:31 AM EDT 50 mcg ketorolac (Toradol) injection Intravenous, As needed, Starting on Tue02/11/25 at 1016, Until Tue02/11/25 at 1106, Routine, Anesthesia Intraprocedure Given 02/11/2025 10:16 AM EDT 30 mg lactated Ringer's infusion 100 mL/hr, Intravenous, Continuous, Starting on Tue02/11/25 at 0700, Until Tue02/11/25 at 1428, Routine Restarted 02/11/2025 7:29 AM EDT Continued by Anesthesia 02/11/2025 7:28 AM EDT 100 mL/hr New Bag 02/11/2025 7:14 AM EDT 100 mL/hr 100 mL/hr lidocaine PF (Xylocaine) 2 % injection Intravenous, As needed, Starting on Tue02/11/25 at 0751, Until Tue02/11/25 at 1106, Routine, Anesthesia Intraprocedure Given 02/11/2025 7:51 AM EDT 60 mg midazolam (Versed) injection Intravenous, As needed, Starting on Tue02/11/25 at 0730, Until Tue02/11/25 at 1106, Routine, Anesthesia Intraprocedure Given 02/11/2025 7:30 AM EDT 2 mg ondansetron (Zofran) injection Intravenous, As needed, Starting on Tue02/11/25 at 1016, Until Tue02/11/25 at 1106, Routine, Anesthesia Intraprocedure Given 02/11/2025 10:16 AM EDT 4 mg phenylephrine in NS (Lopez-Synephrine) 100 mcg/mL prefilled syringe Intravenous, As needed, Starting on Tue02/11/25 at 0900, Until Tue02/11/25 at 1106, Routine, Anesthesia Intraprocedure Given 02/11/2025 9:45 AM EDT 50 mcg Given 02/11/2025 9:00 AM EDT 50 mcg propofol (Diprivan) infusion 10 mg/mL Intravenous, Continuous PRN, Starting on Tue02/11/25 at 0742, Until Tue02/11/25 at 1106, Routine Rate/Dose Change 02/11/2025 8:57 AM EDT 50 mcg/kg/min 18.18 mL/hr Rate/Dose Change 02/11/2025 8:22 AM EDT 60 mcg/kg/min 21.8 16 mL/hr Rate/Dose Change 02/11/2025 7:48 AM EDT 75 mcg/kg/min 27.2 7 mL/hr propofol (Diprivan) injection Intravenous, As needed, Starting on Tue02/11/25 at 0745, Until Tue02/11/25 at 1106, Routine, Anesthesia Intraprocedure Given 02/11/2025 7:45 AM EDT 150 mg sodium chloride 0.9 % infusion Intravenous, Continuous PRN, Starting on Tue02/11/25 at 0742, Until Tue02/11/25 at 1106, Routine New Bag 02/11/2025 7:42 AM EDT 150 mL/hr succinylcholine (Anectine) injection Intravenous, As needed, Starting on Tue02/11/25 at 0731, Until Tue02/11/25 at 1106, Routine, Anesthesia Intraprocedure Given 02/11/2025 7:31 AM EDT 80 mg documented in this encounter Additional Health Concerns Active Problems Noted Date Diagnosed Date Autogenerated Problem 01/30/2025 Assessment Noted Time PHQ-9 Depression Total Score: 0 10/27/19 2:08 AM EDT A Body Mass Index follow-up plan has been documented for the patient 01/30/2025 9:06 PM EDT documented as of this encounter Care Teams Tobacco Conditioner Relationship Specialty Start Date End Date Marino Bunn DO [address] [place] [address] [place] [id number] PCP - General 01/24/25 documented as of this encounter
--- OUTSIDE RECORDS SUMMARY | 2025-02-11 07:30 | XMS_ITS | Encounter Summary ---
Author Organization Healthcare Address [address] [id number] Care Team Providers Care Cork Insulation Setter Name Role Phone OniMarino mejia Farhat JAMA Primary Care Provider [phone] Reason for Visit * Auth/Cert (Routine) Specialty Diagnoses / Procedures Referred By Contac t Referred To Contact Diagnoses Cholesteatoma of attic of ear, left Cholesteatoma of attic of ear, left [H71.02] Procedures SC TYMPANOPLAS/MASTOID,INTCT WALL,REBLD SC EAR CARTILAGE GRAFT TO FACE LEFT TYMPANOPLASTY AND MASTOIDECTOMY WITH OSSICULAR CHAIN RECONSTRUCTION. LEFT TYMPANOPLASTY AND MASTOIDECTOMY WITH OSSICULAR CHAIN RECONSTRUCTION. . Екатерина Gonzalez MD [address] [address] Phone: tel: fax: [facility] [address] [place] [address] Phone: tel: Referral ID Status Reason Start Date Expiration Date Visits Re quested Visits Authorized [id number] 1 1 Encounter Details Date Type Department Care Team (Late st Contact Info) Description 02/11/2025 7:30 AM EDT - 02/11/2025 11:15 AM EDT Surgery [facility] [address] [place] [phone] Екатерина Gonzalez MD [address] [address] LEFT TYMPANOPLASTY AND MASTOIDECTOMY [16359 (CPT ) +1 more] Surgery Details Date/Time Status Location OR Service Patient Class Case Class Case Type Trauma Case? 02/11/2025 7:30 AM Posted GENIE ALAN OR [address] [place] [address] Outpatient Surgery E-Electiv e Panel 1 Procedure LRB Anes Op Region Wound Class Comments LEFT TYMPANOPLASTY AND MASTOIDECTOMY Left General Requested time: 3 hours . 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 Suicidal Behavior (Lifetime) No 6:33 AM GRISELDAT Maria De Jesus Esquivel [...] Room or call the Emergency Department at [phone]. Smoking and its health risks Smoking is [...] help quitting smoking, call the National Cancer [place]'s Quitline toll free at or ask your doctor for help. Weight Management Weighing too much is not good for your health. Being overweight increases your risk of health conditions such as heart problems, high blood pressure, type 2 diabetes, and certain types of cancer. Being overweight can also increase your risk for osteoarthritis (xr-fuz-dw-inu-GQAU-csz) (joint disease), sleep apnea (abnormal breathing at [...] risk of health problems. Ask your dietitian, product development manager or doctor about a weight loss goal [...] of controlled substances: Drug Enforcement Agency (ANTONIO): http://www.deadiversion.Oxane Materialsoj.gov/drug_disposal/takeback/index.htm National Association of Drug Diversion Investigators (NADDI): http://rxdrugdropbox.org/ [place] Office of Drug Control Policy: http://odcp.dc.gov/Prescription+Drug+Drop+Box+Sites.htm Are there concerns about or ? Before [...] look blue or purple What is a RAIMUNDO report? RAIMUNDO is a system that tracks prescriptions of controlled substances in [place]. The RAIMUNDO report tells your doctor if you have been prescribed controlled substances in the past. Doctors must get a RAIMUNDO report before prescribing controlled substances. What can I do if the information in my RAIMUNDO report is wrong? You or your doctor may contact the dispenser who reported the information to RAIMUNDO. If the dispenser agrees that the information should be changed, he or she can fix the RAIMUNDO report. However, the dispenser may certify that the report is correct. If that is the case, you or your doctor may then call the [place] Drug Enforcement and Professional Practices Branch at [...] Your local health department may offer these. [place]'s resources to help you quit: http://www.uky.edu/TobaccoFree/ - Click on the Quit Here! tab. A telephone quit line: (6-255-MGYAUCT) Web sites: www.smokefree.gov, www.becomeanex.org, www.PokitDok Tobacco Treatment Counselors: Call 787-272-9841. Medicare and Medicaid pay for this. employees, retirees, and their spouses or sponsored dependents can get free nicotine replacementtherapy and coaching. Visit www.[facility].edu/HR/Wellness/consults.html. [facility]: Free pamphlets [...] 7.5 mL 1 02/12/2025 5 HYDROcodone-acet aminophen ([place]) 5-325 MG tablet Take 1 tablet by [...] and nonlabored ventilation Discharge Disposition: home * Nicole Montalvo RN - 02/11/2025 10:40 AM EDT Images [...] questions or problems. Call the office at [phone]. After hours, call [phone] and ask for ENT weatherization technician. * Op Note - Kelvin Hou MD - 02/11/2025 7:57 AM EDT OTOLARYNGOLOGY-HEAD & NECK SURGERY OPERATIVE NOTE PATIENT NAME:Debora Arana DATE OF /AGE: 2 2005, 19 y.o. DATE OF PROCEDURE: ?02/11/2025 LOCATION: [facility] OR PREOPERATIVE DIAGNOSIS: Cholesteatoma of left ear Conductive hearing loss of left ear PROCEDURE PERFORMED: Tympanomastoidectomy without ossicular chain reconstruction Ear to ear cartilage graft ATTENDING SURGEON: Екатерина Gonzalez MD RESIDENT SURGEON: Kelvin Hou MD OR TEAM: Anesthesiologist: Edith Norris MD Space Systems Operations Superintendent: Julisa Marsh DO Insurance Defense Attorney: Elzbieta Claire RN Relief Insurance Defense Attorney: Rebekah Barnes RN Relief Scrub: Sophie Navarrete Scrub Person: Maddie Alves ANESTHESIA: General ASA: I DRAINS, STENTS, IMPLANTS: [...] tympanomastoid and tympanosquamous suture lines for an H- type flap. The tympanomeatal flap was elevated until [...] running 5 0 fast gut suture. The Mifflin dressing was applied and the patient was [...] ear. He has been seen by the SUPERVISOR FINISHING ROOM at [facility], as well as [facility] on 11/05/24. Past medical history reviewed/non-contributory. [...] examined under the microscope. The debris and Perry's mix remains on the L side. -Oral [...] card, photo ID, along with power of trademark attorney, guardianship or advanced directives if applicable [...] 02/25/2025 10:30 AM EDT Office Visit [facility] Otolaryngology [address] [place] [address] Екатерина Gonzalez MD [address] [place] [address] documented as of this encounter Goals Goal [...] to nonoperative side, no long acting paralysis SC EAR CARTILAGE GRAFT TO FACE 02/11/2025 7:18 AM EDT Cholesteatoma of attic of ear, left Special Needs bed 180 requiring airway extension, endotracheal tube off to nonoperative side, no long acting paralysis SC TYMPANOPLAS/MAST OID,INTCT WALL,REBLD 02/11/2025 7:18 AM EDT Cholesteatoma of attic of ear, left Special Needs bed 180 requiring airway extension, endotracheal tube off to nonoperative side, no long acting paralysis documented in this encounter Results * Surgical Pathology Exam (02/11/2025 9:49 AM EDT) Case Report Surgical Pathology Case: [id number] Authorizing Provider: Екатерина Gonzalez MD Collected: 02/11/2025 0949 Ordering Location: [facility] Received: 02/11/2025 1220 Surgery Pathologist: Pedro Pablo Waite MD Specimen: Ear, Left, Left mastoid contents 02/13/2025 10:01 AM EDT [facility] Final Diagnosis A. MASTOID, LEFT, TYMPANOMASTOIDEC CAMMIE: - CHOLESTEATOMA WITH SURROUNDING INFLAMMATION 02/13/2025 10:01 AM EDT [facility] at 1001 EDT Clinical Information Cholesteatoma of attic of ear, left [H71.02] 02/13/2025 10:01 AM EDT [facility] Gross Description A. LEFT MASTOID CONTENTS Received in formalin labeled left mastoid contents is an aggregate of pink-tilley soft tissue measuring 0.7 x 0.5 x 0.4 cm. The specimen is entirely submitted in cassette A1. Jenny Babcock 02/13/2025 10:01 AM EDT [facility] Note: A resident was involved in the service. I attest I examined the relevant preparations for the specimens and confirmed the diagnosis or interpretation. 02/13/2025 10:01 AM EDT [facility] Tissue Left ear structure / Unknown 02/11/2025 9:49 AM EDT 02/11/2025 12:20 PM EDT Comment:Pre-op diagnosis: Cholesteatoma of attic of ear, left [H71.02] us Екатерина Gonzalez MD LAB PATHOLOGY ORDERABLES Final Result Performing Organization Address City/State/[facility] Co de Phone Number [facility] [address] [place] [address] documented in this encounter Visit Diagnoses Diagnosis Cholesteatoma of attic of ear, left- Primary Cholesteatoma of attic of ear, left documented in this encounter Admitting Diagnoses Diagnosis [...] Routine, Recovery (Phase I only), nausea, vomiting EPINEPHrine (Adrenalin) 1 MG/ML injection As needed, Starting on Tue02/11/25 at 0826, Until Tue02/11/25 at 1058, Routine, Intraprocedure Given 02/11/2025 8:26 AM EDT 3 mL fentaNYL (Sublimaze) injection 50 mcg 50 mcg, [...] Given 02/11/2025 6:52 AM EDT 0.5 mL lidocaine-EPINEPHrine (Xylocaine W/EPI) 1 %-1:818759 injection As needed, Starting on Tue02/11/25 at 0826, Until Tue02/11/25 at 1058, Routine, Intraprocedure Given 02/11/2025 8:26 AM EDT 6 mL Behind Left Ear naloxone (Narcan) injection 0.4 mg 0.4 mg, Intravenous, As needed, Starting on Tue02/11/25 at 0638, Until Tue02/11/25 at 1428, Routine, Recovery (Phase I only), respiratory depression ofloxacin (Ocuflox) 0.3 % ophthalmic solution As needed, Starting on Tue02/11/25 at 0827, Until Tue02/11/25 at 1058, Routine, Intraprocedure Given 02/11/2025 8:27 AM EDT 15 drops ondansetron (Zofran) injection 4 mg 4 mg, [...] Anesthesia Intraprocedure 0742 (Given - Provid er: uJlisa Marsh DO) scopolamine (Transderm-Scop) patch 1 patch [...] Julisa Marsh DO)1020 (Canceled Entry - Provider: Julisa Marsh DO)1039 (Stopped - Provider: Julisa Marsh [...] Jesus Esquivel RN) lidocaine-EPINEPHrine (Xylocaine W/EPI) 1 %-1:114292 injection (CANCELED) As needed, Starting on Tue02/11/25 [...] documented as of this encounter Care Teams Cork Insulation Setter Relationship Specialty Start Date End Date Marino Bunn DO [address] [place] [address] [place] [address] PCP - General 01/24/25 documented as of this encounter
--- OUTSIDE RECORDS SUMMARY | 2025-02-13 22:19 | XMS_ITS | Continuity of Care Document ---
Author Name [facility] Organization [facility] Care Team Providers Care Neurology Stroke Physician Name Role Phone [facility] Unavailable Unavailable Procedures Combined list of: 1) Procedures from [facility] facilities [facility], not all [place] non-surgical procedures are included; 2) All procedures from the Department of [facility] facilities. Procedure Procedure Type Code Date Perfomer Comments Sourc e No data available for this section Ambulatory P harmacy Social History Combined list of available smoking, tobacco, and other social history from [facility] facilities. Social History Type Response Date Comment Sourc e Sexual Orientation Ambula tory Pharmacy Gender identity Ambulator y Pharmacy Sex Representation Male (finding) Un known Organization Assessment and Plan Combined list of future care activities from [facility] facilities (e.g., assessment and plan notes, appointments, orders, and referrals). Additional future care activities may be listed in the Plan of Care section. Result Assessment and Plan Date Source Assessment and Plan No data available for this section 02/14/2025 Ambulatory Pharmacy Functional Status Combined list of recent functional and cognitive assessments recorded at [facility] Defense and [facility] ([place]).VA Functional Tripp Measurement (FIM) Scale: 1 = Total Assistance (Subject = 0% +), 2 = Maximal Assistance (Subject = 25% +), 3 = Moderate Assistance (Subject = 50% +), 4 = Minimal Assistance (Subject = 75% +), 5 = Supervision, 6 = Modified Tripp (Device), 7 = Complete Tripp (Timely, Safely). Assessment Date/Time Source Assessment Type Assessment Skill Assessment Score Assessment Details No data available for this section
--- OUTSIDE RECORDS SUMMARY | 2025-02-13 22:20 | XMS_ITS | Encounter Summary ---
Author Organization Healthcare Address [address] 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 0 10/26/2024 CAGE Questionnaire Score 0 025 Sex and Gender Information Value Date Recorded Sex Assigned at Not on file Legal Sex Male 12:33 PM EDT Gender Identity Not on file Sexual Orientation Not on file documented as of this encounter Miscellaneous Notes * Telephone Encounter - Cammy Wise - 01/29/2025 9:38 AM EDT I called the patient and I go him scheduled for an appointment. * Telephone Encounter - Pratibha Joseph - 01/29/2025 9:12 AM EDT Clinical Concern/Question Reason for Call: Patient is calling they went to the ER last night was told to f/u with their ENT doc. Please call patient back with info. Thank you Best contact number: [phone] (home) Optimal time of day to reach caller: ANYTIME Additional comments/information from caller: None Note: Please do not reply to this message. Follow-up communication and further actions as a result of this message need to be communicated with the patient directly, if the patient is not active onMyChart. If the patient is active on MyChart, they will receive notification of the communication/outcome via YellowSchedulehart. documented in this encounter Plan of Treatment Upcoming Encounters Date Type Department Care Team (Late st Contact Info) Description 02/25/2025 10:30 AM EDT Office Visit [facility] [address] [place] [address] Екатерина Gonzalez MD [address] [place] [address] documented as of this encounter Visit Diagnoses Not on filedocumented in this encounter Additional Health Concerns Assessment Noted Time PHQ-9 Depression Total Score: 0 10/27/19 2:08 AM EDT A Body Mass Index follow-up plan has been documented for the patient 01/30/2025 11:37 AM EDT documented as of this encounter Care Teams Wire Chief Relationship Specialty Start Date End Date Marino Bunn DO [address] [place] [address] PCP - General 01/24/25 documented as of this encounter
--- OUTSIDE RECORDS SUMMARY | 2025-02-13 22:21 | XMS_ITS | Encounter Summary ---
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 0 10/26/2024 CAGE Questionnaire Score 0 025 Sex and Gender Information Value Date Recorded Sex Assigned at Not on file Legal Sex Male 12:33 PM EDT Gender Identity Not on file Sexual Orientation Not on file documented as of this encounter Plan of Treatment Upcoming Encounters Date Type Department Care Team (Late st Contact Info) Description 02/25/2025 10:30 AM EDT Office Visit [facility] [address] [place] [address] Екатерина Gonzalez MD [address] [place] [address] documented as of this encounter Goals Goal Patient Goal Type Associated Problems Recent Progress Patient-Stated? Author Autogenera matthieu Goal Care Plan Autogenerated Problem No Alyssa Silva documented as of this encounter Visit Diagnoses Not on filedocumented in this encounter Additional Health Concerns Active Problems Noted Date Diagnosed Date Autogenerated Problem 01/30/2025 Assessment Noted Time PHQ-9 Depression Total Score: 0 10/27/19 25 2:08 AM EDT A Body Mass Index follow-up plan has been documented for the patient 01/30/2025 9:06 PM EDT documented as of this encounter Care Teams Ornamental Iron Worker Helper Relationship Specialty Start Date End Date Marino Bunn DO [address] [facility] [address] [place] [address] PCP - General 01/24/25 documented as of this encounter
--- OUTSIDE RECORDS SUMMARY | 2025-02-13 22:21 | XMS_ITS | Continuity of Care Document ---
Author Organization [facility] [address] Address [address] [place] [address] Care Team Providers Care Aircraft Engine Installer Name Role Phone MAYELIN GARDNER Primary Care [...] audio gram No observ ation record ed. [id number] Not Available 13:45:40 01/18/20 25 01/09/2025 CT tempo [facility] [address] [place] [address] Phone: Fax: Name: JOSE A SANCHES Paco Exam Date: 025 : 004 Age 19 years Gender : M Access ion: [id number] Physic desean: CRISTIAN SCHWAB Facili ty: [facility] Facili ty HSV: Outpat ient Exam: [...] GS: The caroti d canals and internal controls consultant al jugula r forame n are unrema [...] the anteri or aspect of the left residency program coordinator al audito ry canal which may repres ent underl jerardo cerume n or soft tissue mass. The right middle ear ossicl es are unrema rkable . The internal controls consultant al audito ry canals , semici rcular [...] the anteri or aspect of the left residency program coordinator al audito ry canal which may repres [...] for referr JOSE A Hart N to [facility]. Legall y authen ticate d by SCOTT BOB W 01-17 09:31: 55 CC'ed Logic: Orderi ng Provid er: SERA LUND Attend ing Provid er: SERA LUND Admitt ing Provid er: SERA LUND [email or web address] [facility] [address] [facility], [place], [address], 01/17/2025 10:27:23 Result Notes None recorded. Problems Name Problem SNOMED Code Status Onset Date Resolution Date Notes Provider Name and Address Organization Details Recorded Time Conductive hearing loss of left ear with normal hearing on right side 8057502293 Active 2024 ABELARDO BENSON, SARAH [address] [facility], [place], [address] , [facility] & [place] 15:47:38 Problem Notes None recorded. Procedures Surgical History Date Name Laterality Status Provider Name and Address Organization Details Recorded Time tonsilectom y/adenoids completed Princess Carlson [facility] & [place] 11/28/2024 15:21:47 Imaging Results None recorded. Procedure Notes None recorded. Medical Equipment None Reported. Allergies Allergen ID Allergen Name Allergen Category Reaction Reaction Severity Criticality Documentation Date Start Date Code Code System Note Provider Name and Address Organization Details Recorded Time 242503 azithromy hitesh medicatio n Not available Not available Not available 11/28/2024 41389 RxNorm Princess holcomb [facility] & [place] 15:21:21 Medications Name Sig Start Date Stop Date Status Note LastModified by Organization Details LastModified Time prednisone 20 mg tablet TAKE 3 TABLETS BY MOUTH DAILY X7DAYS active Not Available Not Available No t Available cefdinir 300 mg capsule TAKE 1 CAPSULE BY MOUTH TWICE A DAY FOR 10 DAYS active Not Available Not Available No t Available fluticasone propionate 50 mcg/actuatio n nasal spray,suspen [...] % ear drops,suspen mt INSTILL 4 DROPS IN EAR(S) TWICE A DAY FOR 7 DAYS active Not Available Not [...] Disorder N Anesthesia Complications N Heart Attack ([place]) N Anxiety Disorder N Diabetes N Bleeding [...] SNOMED-CT Code Diagnosis ICD10 Code Diagnosis Note [id number] CRISTIAN GARDNER NP [facility] [address] [address] 11/28/2024 15:09:13 11/28/2024 15:32:15 Acute otitis externa of left ear 5137507392 580201 H60.502 Will see him back in 4 weeks w/ audiogram. Acute non- suppurative serous otitis media 319141943 H65.02 Bilateral tympanosclerosis 7490005040 9602095 H74.03 History of procedure 416 457280 Z96.22 [id number] CRISTIAN GARDNER NP [facility] [address] [address] 12/27/2024 15:33:01 12/27/2024 15:50:24 Conductive hearing loss of left ear with normal hearing on right side 1857409311 H90.12 LE otorrhea has resolved since last [...] CT or sooner if needed. Bilateral tympanosclerosis 1456566669 0253255 H74.03 History of procedure 416 947511 Z96.22 Otalgia of left ear 1010 533815 H92.02 [id number] SARAH HALE [facility] [address] [place] [address] 12/27/2024 15:33:11 12/27/2024 15:48:03 Conductive hearing loss of left ear with normal hearing on right side 0491943362 H90.12 Health Concerns Section Related Observation LastModified by Organization Detai ls LastModified Time None Recorded Concern Status LastModified by Organization Details LastModified Time None Recorded Payers Encounter Date Sequence Insurance Name Policy Number Policy Peterson Covered Member ID Peterson Member ID Guarantor Name 12/27/2024 1 [facility] (MEDICAID HMO) Wenceslao Arana [id number] Wenceslao Arana Notes Date Note Type Note [...] this date. 3-F/u hearing testing annually. ABELARDO BENSON SARAH [address], [place], [address], [place] [facility] & [place] 12/27/2024 15:47:55 12/27/2024 text/html 12/27/24 - 19 [...] left outer ear before her went to [facility] hospital and he saw blood. Patient is not currently taking any medications. Patient says he can hear normally but does have come occasional ringing. He has had multiple sets of ear tubes as a child. Patient denies any pain, drainage, or hearing loss in the right ear. He finished entire course of augmentin that was prescribed to him by [facility] ED on 11/05. States the pain in his LE has improved significantly but still occasionally comes and goes. CRISTIAN GARDNER NP [address], [place], [address], [facility] - [facility] & [place] 12/27/2024 15:55:14
--- OUTSIDE RECORDS SUMMARY | 2025-02-13 22:21 | XMS_ITS | Continuity of Care Document ---
Author Organization [facility] & [place], [facility] Address [address] [place] [address] Care Team Providers Care Programmer Analyst Name Role Phone MAYELIN GARDNER Primary Care Provider Assessment No assessment recorded. Plan of Treatment Reminders Order Date Submit Date Provider Last Modified By Organization Details Last Modified Time Details Appointments None recorded. Lab None recorded. Referral None recorded. Procedures None recorded. Surgeries None recorded. Imaging CT, temporal bone, w/o contrast 2024 025 [facility] [address] [place] [address] (Centralized Scheduling), [address] [facility], [place], [address], 14:09:07 Medication Orders None recorded. Patient TargetsNo targets recorded. Patient InstructionsNo instructions recorded. Reason for Referral None Reported. Results Created Date Observation Date Name Description Value Unit Range Abnormal Flag Note LastModifiedBy Organization Detail LastModifiedTime 01/02/20 25 12/27/2024 audio gram No observ ation record ed. [email or web address] Not Available 13:45:40 01/18/20 25 01/09/2025 CT tempo rl bone wo [facility] [address] [place] [address] Phone: Fax: Name: JOSE A SANCHES Exam Date: 025 : 004 Age 19 years Gender : M Access ion: [id number] Physic desean: CRISTIAN SCHWAB ty: [facility] Facili ty HSV: Outpat ient Exam: [...] FINDIN GS: The caroti d canals and intern retail al jugula r forame n are unrema [...] the anteri or aspect of the left surface grinder tender al audito ry canal which may repres ent underl jerardo cerume n or soft tissue mass. The right middle ear ossicl es are unrema rkable . The intern retail al audito ry canals , semici rcular [...] the anteri or aspect of the left surface grinder tender al audito ry canal which may repres [...] referr jennifer PALACIOS SJOSE A N to [facility]. Legall y authen ticate d by SCOTT Perry 01-17 09:31: 55 CC'ed Logic: Orderi ng Provid er: SERA LUND Attend ing Provid er: SERA LUND Admitt ing Provid er: SERA LUND [id number] [facility] Therapy [address] [facility], [place], [address], 01/17/2025 10:27:23 Result Notes None recorded. Problems Name Problem SNOMED Code Status Onset Date Resolution Date Notes Provider Name and Address Organization Details Recorded Time Conductive hearing loss of left ear with normal hearing on right side 5158388181 Active 2024 ABELARDO BENSON, AUD [address] [facility], [place], [address] , [facility] GISELL [facility] & [place] 15:47:38 Problem Notes None recorded. Procedures Surgical History Date Name Laterality Status Provider Name and Address Organization Details Recorded Time tonsilectom y/adenoids completed Princess WINSTON - G[facility] & [place] 11/28/2024 15:21:47 Imaging Results None recorded. Procedure Notes None recorded. Medical Equipment None Reported. Allergies Allergen ID Allergen Name Allergen Category Reaction Reaction Severity Criticality Documentation Date Start Date Code Code System Note Provider Name and Address Organization Details Recorded Time 008946 azithromy hitesh medicatio n Not available Not available Not available 11/28/2024 07780 RxNorm Princess Kaplan n null, [place] - [facility]NT - [place] & [place] 15:21:21 Medications Name Sig Start Date Stop [...] Emphysema N Migraines N Thyroid Problems N Developmental Delay N Depression N Glaucoma N Anemia N Immune System Disorder N Anesthesia Complications N Heart Attack ([place]) N Anxiety Disorder N Diabetes N Bleeding [...] SNOMED-CT Code Diagnosis ICD10 Code Diagnosis Note [id number] CRISTIAN GARDNER NP [facility] [place] [address] [facility] [address] [place] [address] 11/28/2024 15:09:13 11/28/2024 15:32:15 Acute otitis externa of left ear 6125709441 961060 H60.502 Will see him back in 4 weeks w/ audiogram. Acute non- suppurative serous otitis media 166564904 H65.02 Bilateral tympanosclerosis 1590377947 4233210 H74.03 History of procedure 416 048799 Z96.22 [id number] CRISTIAN GARDNER NP [facility] of [address] [address] 12/27/2024 15:33:01 12/27/2024 15:50:24 Conductive hearing loss of left ear with normal hearing on right side 5172848003 H90.12 LE otorrhea has resolved since last [...] CT or sooner if needed. Bilateral tympanosclerosis 8299787531 2211356 H74.03 History of procedure 416 216773 Z96.22 Otalgia of left ear 1010 967967 H92.02 [id number] SARAH HALE [facility] of [address] [address] 12/27/2024 15:33:11 12/27/2024 15:48:03 Conductive hearing loss of left ear with normal hearing on right side 2632958066 H90.12 Health Concerns Section Related Observation LastModified by Organization Detai ls LastModified Time None Recorded Concern Status LastModified by Organization Details LastModified Time None Recorded Payers Encounter Date Sequence Insurance Name Policy Number Policy Peterson Covered Member ID Peterson Member ID Guarantor Name 12/27/2024 1 [facility] (MEDICAID HMO) [place] Yasmeen [id number] Wenceslao Arana Notes Date Note Type Note [...] 1-Discussed findings with Mr. Arana and Cristian Gardner, FELICITA. 2-F/u with Cristian this date. 3-F/u hearing testing annually. ABELARDO BENSON, SARAH [address], [place], [address], [facility] & [place] 12/27/2024 15:47:55 12/27/2024 text/html 12/27/24 - 19 [...] left outer ear before her went to [facility] hospital and he saw blood. Patient is not currently taking any medications. Patient says he can hear normally but does have come occasional ringing. He has had multiple sets of ear tubes as a child. Patient denies any pain, drainage, or hearing loss in the right ear. He finished entire course of augmentin that was prescribed to him by [facility] ED on 11/05. States the pain in his LE has improved significantly but still occasionally comes and goes. CRISTIAN GARDNER NP [address], [place], [address], [facility] & [place] 12/27/2024 15:55:14
--- OUTSIDE RECORDS SUMMARY | 2025-02-13 22:21 | XMS_ITS | Encounter Summary ---
Author Organization Healthcare Address [address] [place] [address] Care Team Providers Care Applications Engineer Manufacturing Name Role Phone William Lao MD Primary Care Provider [phone] Encounter Details Date Type Department Care Team ([facility] st Contact Info) Description 01/09/2025 Orders Only External Location [address] [place] [address] Provider, External Social History Tobacco Use Types [...] drink first t seven in the morning (EYE-UTILITY TECH) to steady your nerves or to get [...] Office Visit [facility] [address], [address] [place] [address] Екатерина Gonzalez MD [address] [place] [address] documented as of this encounter Procedures Procedure [...] documented as of this encounter Care Teams Applications Engineer Manufacturing Relationship Specialty Start Date End Date William Lao MD [address] [place] [address] PCP - General Internal Medicine 10/05/22 01/23/25 documented as of this encounter
--- OUTSIDE RECORDS SUMMARY | 2025-02-13 22:21 | XMS_ITS | Encounter Summary ---
Author Organization Healthcare Address [address] [place] [address] Care Team Providers Care Plant Associate Name Role Phone William Lao MD Primary Care Provider [phone] Encounter Details Date Type Department Care Team (Late st Contact Info) Description 01/21/2025 Telephone [place] [facility] [address] [place] [address] Vj Story Social History Tobacco [...] drink first t seven in the morning (EYE-SIEBEL ADMINISTRATOR) to steady your nerves or to get [...] Description 02/25/2025 10:30 AM EDT Office Visit [place] [facility] [address] [place] [address] Екатерина Gonzalez MD [address] [place] [address] documented as of this encounter Visit Diagnoses Not on filedocumented in this encounter Additional Health Concerns Assessment Noted Time PHQ-9 Depression Total Score: 0 10/27/19 25 2:08 AM EDT documented as of this encounter Care Teams Plant Associate Relationship Specialty Start Date End Date William Lao MD [address] [place] [address] PCP - General Internal Medicine 10/05/22 01/23/25 documented as of this encounter
--- OUTSIDE RECORDS SUMMARY | 2025-02-13 22:21 | XMS_ITS | Data Portability ---
Author Organization [place] - NT [facility] & GISELL Dent ADMIN Address [address] [place] [address] Care Team Providers Care Gristmill Operator Name Role Phone MAYELIN GARDNER Primary Care Provider Assessment No assessment recorded. Plan of Treatment Reminders Order Date Submit Date Provider Last Modified By Organization Details Last Modified Time Details Appointments None recorded. Lab None recorded. Referral None recorded. Procedures None recorded. Surgeries None recorded. Imaging CT, temporal bone, w/o contrast [address] (Centralized Scheduling), [address] [place], [address], 5 14:09:07 Medication Orders ciprofloxac in 0.3 %-dexametha sone 0.1 % ear drops,suspe nsion 2024 025 [facility]/Pharmacy #[id number], [address] [place], [address], 5 15:32:19 fluticasone propionate 50 mcg/actuati on nasal spray,suspe nsion 2024 025 [facility]/Pharmacy #[id number], [address] [place], [address], 5 15:32:48 Patient TargetsNo targets recorded. Patient InstructionsNo instructions recorded. Reason for Referral None Reported. Results Created Date Observation Date Name Description Value Unit Range Abnormal Flag Note LastModifiedBy Organization Detail LastModifiedTime 01/02/2012/27/2024 audio gram No observ ation [place] ed. [place] [id number] Not Available 13:45:40 01/18/20 25 01/09/2025 CT tempo rl bone wo [facility] [address] [place] [address] Phone: Fax: Name: JOSE A SANCHES Exam Date: 025 : 004 Age 19 years Gender : M Access ion: [id number] Physic desean: COFFMA N, CRISTIAN [...] FINDIN GS: The caroti d canals and international account executive al jugula r forame n are unrema [...] the anteri or aspect of the left aviation electronic warfare operator al audito ry canal which may repres ent underl jerardo cerume n or soft tissue mass. The right middle ear ossicl es are unrema rkable . The international account executive al audito ry canals , semici rcular canals , cochle a, and course of the facial nerve are unrema rkable . There is mild right maxill trevor sinus mucosa l thicke nereyda. There is a suspec mattiheu left maxill trevor sinus mucous retent ion [...] the anteri or aspect of the left aviation electronic warfare operator al audito ry canal which may repres [...] [facility] Legall y authen ticate d by SCOTT BOB W 01-17 09:31: 55 CC'ed Logic: Orderi ng Provid er: SERA LUND Attend ing Provid er: SERA LUND Admitt ing Provid er: SERA LUND [email or web address] [facility] - [facility] Therapy [address], [place], [address], 01/17/2025 10:27:23 Result Notes None recorded. Problems Name Problem SNOMED Code Status Onset Date Resolution Date Notes Provider Name and Address Organization Details Recorded Time Conductive hearing loss of left ear with normal hearing on right side 0389219227 Active 2024 ABELARDO BENSON, SARAH [address], [place], [address] , [facility] & [place] 15:47:38 Problem Notes None recorded. Procedures Surgical History Date Name Laterality Status Provider Name and Address Organization Details Recorded Time tonsilectom y/adenoids completed Princess WINSTON [facility] & [place] 11/28/2024 15:21:47 Imaging Results None recorded. Procedure Notes None recorded. Medical Equipment None Reported. Allergies Allergen ID Allergen Name Allergen Category Reaction Reaction Severity Criticality Documentation Date Start Date Code Code System Note Provider Name and Address Organization Details Recorded Time 118472 azithromy hitesh medicatio n Not available Not available Not available 11/28/2024 32121 RxNorm Princess Kaplan aicha vázquez, [facility] & [place] 15:21:21 Medications Name Sig Start Date Stop [...] Address Organization Details Last Updated DateTime 11/28/2024 03901.84 g 98.6 [degF] [facility] & [place] 11/28/2024 15:20:53 Social History None recorded. Functional Status None recorded. Mental Status None recorded. Family History Nothing Reported. Medical History Condition Response Allergies/Hayfever N Heart Problems N None N Heart Conditions N Emphysema N Migraines N Thyroid Problems N Developmental Delay N Glaucoma N Depression N Anemia N Immune System Disorder N Anesthesia Complications N Heart Attack ([place]) N Anxiety Disorder N Diabetes N Bleeding [...] SNOMED-CT Code Diagnosis ICD10 Code Diagnosis Note [id number] CRISTIAN GARDNER NP [facility] [place] [address] 11/28/2024 15:09:13 11/28/2024 15:32:15 Acute otitis externa of left ear 6307894766 161457 H60.502 Will see him back in 4 weeks w/ audiogram. Acute non- suppurative serous otitis media 558207593 H65.02 Bilateral tympanosclerosis 0274356661 3747912 H74.03 History of procedure 416 716960 Z96.22 [id number] CRISTIAN GARDNER NP [facility] [place] [address] 12/27/2024 15:33:01 12/27/2024 15:50:24 Conductive hearing loss of left ear with normal hearing on right side 2531544324 H90.12 LE otorrhea has resolved since last [...] CT or sooner if needed. Bilateral tympanosclerosis 0240046914 6975638 H74.03 History of procedure 416 086583 Z96.22 Otalgia of left ear 1010 883484 H92.02 [id number] SARAH HALE [facility] of [address] [address] 12/27/2024 15:33:11 12/27/2024 15:48:03 Conductive hearing loss of left ear with normal hearing on right side 5016962870 H90.12 Health Concerns Section Related Observation LastModified by Organization Detai ls LastModified Time None Recorded Concern Status LastModified by Organization Details LastModified Time None Recorded Advance Directives Directive None Recorded Payers Insurance Date Sequence Insurance Name Policy Number Policy Peterson Covered Member ID Peterson Member ID Guarantor Name 12/24/2024 1 [employer] [facility] (MEDICAID HMO) Wenceslao Arana [id number] Wenceslao Arana Notes Date Note Type Note Provider Name and Address Organization Details Recorded Time 11/28/2024 text/html 11/28/24 - 19 year old male in office for left ear pain x 3 weeks. Patient says his left ear is draining a green color. Patient says he used a Q-tip on his left outer ear before her went to [facility] hospital and he saw blood. Patient is not currently taking any medications. Patient says he can hear normally but does have come occasional ringing. He has had multiple sets of ear tubes as a child. Patient denies any pain, drainage, or hearing loss in the right ear. He finished entire course of augmentin that was prescribed to him by [facility] ED on 11/05. States the pain in his LE has improved significantly but still occasionally comes and goes. CRISTIAN GARDNER NP [address] , [place], [address], [facility] - NT - [place] & [place] 11/28/2024 15:36:20 12/27/2024 text/html Wenceslao was seen [...] hearing testing annually. ABELARDO BENSON, SARAH [address], [place], [address], [facility] - NT - [place] & [place] 12/27/2024 15:47:55 12/27/2024 text/html 12/27/24 - 19 [...] left outer ear before her went to [facility] hospital and he saw blood. Patient is not currently taking any medications. Patient says he can hear normally but does have come occasional ringing. He has had multiple sets of ear tubes as a child. Patient denies any pain, drainage, or hearing loss in the right ear. He finished entire course of augmentin that was prescribed to him by [facility] ED on 11/05. States the pain in his LE has improved significantly but still occasionally comes and goes. CRISTIAN GARDNER, BELA [address] [facility], [place], [address], [place] - [facility] - [place] & [place] 12/27/2024 15:55:14
--- OUTSIDE RECORDS SUMMARY | 2025-02-13 22:21 | XMS_ITS | Encounter Summary ---
Author Organization Healthcare Address [address] [place] [address] Care Team Providers Care Otolaryngology Teacher Name Role Phone William Lao MD Primary Care Provider [phone] Encounter Details Date Type Department Care Team (Late st Contact Info) Description 01/21/2025 Telephone [place] [facility] [address] [place] [address] Anali Becerril ````````````````````[place] - PACU [...] drink first t seven in the morning (EYE-MANAGER RAIL) to steady your nerves or to get [...] Description 02/25/2025 10:30 AM EDT Office Visit [place] [facility] [address] [place] [address] Екатерина Gonzalez MD [address] [place] [address] documented as of this encounter Visit Diagnoses Not on filedocumented in this encounter Additional Health Concerns Assessment Noted Time PHQ-9 Depression Total Score: 0 10/27/19 25 2:08 AM EDT documented as of this encounter Care Teams Otolaryngology Teacher Relationship Specialty Start Date End Date William Lao MD [address] [place] [address] PCP - General Internal Medicine 10/05/22 01/23/25 documented as of this encounter
--- OUTSIDE RECORDS SUMMARY | 2025-02-13 22:21 | XMS_ITS | Encounter Summary ---
Author Organization Healthcare Address [address] [place] [address] Care Team Providers Care Cotton Agent Name Role Phone Marino Bunn Primary Care Provider [phone] Encounter Details Date Type Department Care Team [...] drink first t seven in the morning (EYE-SOW FARM BARN TECHNICIAN) to steady your nerves or to get [...] Description 02/25/2025 10:30 AM EDT Office Visit [place] [facility] [address], [address] [place] [address] Екатерина Gonzalez MD [address] [place] [address] documented as of this encounter Visit Diagnoses Not on filedocumented in this encounter Additional Health Concerns Assessment Noted Time PHQ-9 Depression Total Score: 0 10/27/19 25 2:08 AM EDT A Body Mass Index follow-up plan has been documented for the patient 01/30/2025 11:37 AM EDT documented as of this encounter Care Teams Cotton Agent Relationship Specialty Start Date End Date Marino Bunn DO [address] [place] [address] PCP - General 01/24/25 documented as of this encounter
--- OUTSIDE RECORDS SUMMARY | 2025-02-13 22:21 | XMS_ITS | Clinical Summary ---
Author Organization [facility] Address [address] [place] [address] Care Team Providers Care Government Clerk Name Role Phone Marino Bunn Farhat JAMA Primary Care Provider [phone] Allergies Active Allergy Reactions Criticality Noted Date Comments Azithromycin Anaphylaxis High 10/26/2024 Medications ciprofloxacin- dexamethasone (CiproDEX) otic suspension Administer 4 drops into the left ear 2 times a day. 5 Active predniSONE (Deltasone) 20 MG tablet Take 1 tablet by mouth daily. Active ciprofloxacin- dexamethasone (CiproDEX) otic suspension Administer 4 drops into the left ear 2 times a day for 14 days. 7.5 mL 1 5 02/27/20 25 Active cephalexin (Keflex) 500 MG capsuleIndicat ions:Cholestea lexi of attic of ear, left Take 1 capsule by mouth 3 times a day for 7 days. 21 capsule 5 02/19/20 25 Active promethazine (Phenergan) 12.5 MG tablet Take 1 tablet by mouth every 6 hours as needed for nausea or vomiting. 15 tablet 5 Active HYDROcodone-ac etaminophen ([place]) 5-325 MG tablet Take 1 tablet by mouth every 6 hours as needed for moderate pain or severe pain. 15 tablet 5 Active cefdinir (Omnicef) 300 MG capsule Take 1 capsule by mouth 2 times a day. 02/12/20 25 Discontinu ed(Stop Taking at Discharge) oxyCODONE (Roxicodone) 5 MG immediate release tablet Take 1 tablet by mouth every 6 hours as needed for moderate pain or severe pain. 12 tablet 02/12/20 25 Discontinu ed(Stop Taking at Discharge) Active Problems Problem Noted Date Diagnosed Date Cholesteatoma of attic of ear, left 01/24/2025 Anxiety disorder 10/26/2024 Encounters Date Type Department Care Team Description 02/11/2025 7:30 AM EDT - 02/11/2025 11:15 AM EDT Surgery [facility] [address] [place] [phone] Екатерина Gonzalez MD LEFT TYMPANOPLASTY AND MASTOIDECTOMY [60157 (CPT ) +1 more] 02/11/2025 7:28 AM EDT Anesthesia Event [facility] Advanced Surgery [address] [place] [phone] Edith Norris MD Kilbane, Brianna N, 02/11/2025 5:06 AM EDT - 02/11/2025 12:28 PM EDT Hospital Encounter SRIKANTH Davis [address] [phone] Екатерина Gonzalez MD Cholesteatoma of attic of ear, left Discharge Disposition: Home or Self Care 02/11/2025 Travel 01/30/2025 8:50 AM EDT Office Visit [facility] [address] [place] [phone] Екатерина Gonzalez MD Cholesteatoma of attic of ear, left (Primary Dx) 01/30/2025 Travel 01/29/2025 Telephone [facility] [address] [phone] Екатерина Gonzalez MD [facility] Clinical Concern/Question 01/24/2025 4:10 PM EDT Consult [facility] [address] [place] [phone] Екатерина Gonzalez MD Cholesteatoma of attic of ear, left (Primary Dx) 01/24/2025 Travel 01/21/2025 Telephone [facility] [address] [place] [address] Vj Story 01/21/2025 Telephone [facility] [address] [place] [address] Anali Becerril 01/09/2025 Orders Only External Location [address] [place] [phone] Provider, External from Last 3 Months Family History Medical History Relation Name Comments Heart disease Father Relation Name Status Comments Father Social History Tobacco Use Types Packs/Day Years [...] drink first t seven in the morning (EYE-SHOT PACKER) to steady your nerves or to get [...] Mass Index 18.12 02/11/2025 5:58 AM EDT Plan of Treatment Upcoming Encounters Date Type Department Care Team (Late st Contact Info) Description 02/25/2025 10:30 AM EDT Office Visit [facility] [address] [place] [address] Екатерина Gonzalez MD [address] [place] [address] Health Maintenance Due Date Last Done Comments [facility]-HIV Screening 2003 [facility]-Hepatitis C Screening 2003 [facility]-/Child/Adol SDOH Screenings 2003 [facility]-RSXLA-64 Vaccine (#1) 2008 HPV Vaccines (1 - Male 3-dose series) 2018 [facility]-Hepatitis A Vaccines (2 of 2 - 2-dose series) 02/12/2019 08/15/2018 [facility]- SDOH Screenings 2021 [facility]-Adult SDOH Screenings 2021 [facility]-Zoster Vaccines (1 of 2) 2022 03/01/2016, 09/23/2004 [facility]-Influenza Vaccine (#1) 2025 [facility]-Depression Screening 10/26/2025 10/26/2024, 0410/2024 [facility]-DTaP,Tdap,and Td Vaccines (7 - Td or Tdap) 03/01/2026 03/01/2016, 11/06/2007, 09/23/2004, Additional history exists [facility]-HIB Vaccines Completed 09/23/2004, , 2003 [facility]-Hepatitis [...] on patient's age to complete this topic Goals Goal Patient Goal Type Associated Problems Recent Progress Patient-Stated? Author Autogenera matthieu Goal Care Plan Autogenerated Problem No Alyssa Silva Procedures Procedure Name Priority Date/Time Associated Diagnosis Comments SURGICAL PATHOLOGY EXAM Routine 02/11/2025 9:49 AM EDT Cholesteatoma of attic of ear, left PB ANESTHESIA PLACEHOLDER Routine 02/11/2025 7:33 AM EDT MD AN ELECTIVE ENDOTRACHEAL AIRWAY Routine 02/11/2025 7:33 AM EDT RECONSTRUCTION, OSSICULAR CHAIN 02/11/2025 7:18 AM EDT Cholesteatoma of attic of ear, left Special Needs bed 180 requiring airway extension, endotracheal tube off to nonoperative side, no long acting paralysis MD EAR CARTILAGE GRAFT TO FACE 02/11/2025 7:18 AM EDT Cholesteatoma of attic of ear, left Special Needs bed 180 requiring airway extension, endotracheal tube off to nonoperative side, no long acting paralysis MD TYMPANOPLAS/MASTOID ,INTCT WALL,REBLD 02/11/2025 7:18 AM EDT Cholesteatoma of attic of ear, left Special Needs bed 180 requiring airway extension, endotracheal tube off to nonoperative side, no long acting paralysis CT OUTSIDE IMAGES 01/09/2025 4:4 1 PM EDT from Last 3 Months Results * Surgical Pathology Exam (02/11/2025 9:49 AM EDT) Case Report Surgical Pathology Case: [id number] Authorizing Provider: Екатерина Gonzalez MD Collected: 02/11/2025 0949 Ordering Location: [facility] Received: 02/11/2025 1220 Surgery Pathologist: Pedro Pablo Waite MD Specimen: Ear, Left, Left mastoid contents 02/13/2025 10:01 AM EDT [facility] Final Diagnosis A. MASTOID, LEFT, TYMPANOMASTOIDEC CAMMIE: - CHOLESTEATOMA WITH SURROUNDING INFLAMMATION 02/13/2025 10:01 AM EDT [facility] at 1001 EDT Clinical Information Cholesteatoma of attic of ear, left [H71.02] 02/13/2025 10:01 AM EDT [facility] Gross Description A. LEFT MASTOID CONTENTS Received in formalin labeled left mastoid contents is an aggregate of pink-tilley soft tissue measuring 0.7 x 0.5 x 0.4 cm. The specimen is entirely submitted in cassette A1. Jenny Babcock 02/13/2025 10:01 AM EDT [facility] Note: A resident was involved in the service. I attest I examined the relevant preparations for the specimens and confirmed the diagnosis or interpretation. 02/13/2025 10:01 AM EDT [facility] Tissue Left ear structure / Unknown 02/11/2025 9:49 AM EDT 02/11/2025 12:20 PM EDT Comment:Pre-op diagnosis: Cholesteatoma of attic of ear, left [H71.02] us Екатерина Gonzalez MD LAB PATHOLOGY ORDERABLES Final Result [facility] [address] [place] [address] * MD AN ELECTIVE ENDOTRACHEAL AIRWAY, PB ANESTHESIA PLACEHOLDER [...] Edith Norris MD ANESTHESIA ORDERABLES Final Result * CT OUTSIDE IMAGES (01/09/2025 4:41 PM EDT) Anatomical Region Laterality Modality Computed Tomogra phy 01/09/2025 4:41 PM EDT External Provider IMG CT PROCEDURES Final Result from Last 3 Months Additional Health Concerns Active Problems Noted Date Diagnosed Date Autogenerated Problem 01/30/2025 Insurance [facility] MEDICAID Care Teams Government Clerk Relationship Specialty Start Date End Date Marino Bunn DO [address] [place] [id number] PCP - General 01/24/25
--- OUTSIDE RECORDS SUMMARY | 2025-02-13 22:21 | XMS_ITS | Encounter Summary ---
Author Organization Healthcare Address [address] [place] [address] Care Team Providers Care Mine Boss Name Role Phone William Lao MD Primary Care Provider [phone] Marino Bunn DO Primary Care Provider [phone] Encounter Details Date Type Department Care Team (Late st Contact Info) Description 10/05/2022 Orders Only External Location [address] [place] [address] Zackary KasperLYNCO, [place] [address] [facility] [address] [place] [address] Social History Tobacco Use Types Packs/Day Years [...] Description 02/25/2025 10:30 AM EDT Office Visit [facility] [address] [place] [address] Екатерина Gonzalez MD [address] [place] [phone] documented as of this encounter Procedures Procedure Name Priority Date/Time Associated Diagnosis Comments CT ANGIO CARDIAC CORONARY ARTERIES 10/05/2022 8:41 AM EDT documented in this encounter Results * CT Angio Cardiac Coronary Arteries (10/05/2022 8:41 AM EDT) Anatomical Region Laterality Modality Heart Computed Tomogra phy 10/05/2022 8:41 AM EDT Zackary ORTEGA IMSusan CT PROCEDURES Final Result documented in this encounter Visit Diagnoses Not on filedocumented in this encounter Care Teams Mine Boss Relationship Specialty Start Date End Date William Lao MD [address] [place] [address] PCP - General Internal Medicine 10/05/22 01/23/25 Marino Bunn DO [address] [place] [address] [place] [address] PCP - General 01/24/25 documented as of this encounter
--- OUTSIDE RECORDS SUMMARY | 2025-02-13 22:21 | XMS_ITS | Patient Health Record ---
Author Organization [facility] Address [address] [place] [address] [place] [address] Care Team Providers Care Cad Designer Name Role Phone Chao Calderon Primary Care Provider Chao Oconnor Unavailable [phone] Migration, Provider Unavailable Unavailable Allergies Allergen (clinical drug ingredient) Drug/Non Drug Allergy documented on EMR Reaction Allergy Type Onset Date Status azithromycin Zithromax rash Drug Allergy Acti ve Reason For Referral No Information Medications Medication SIG (Take, Route, Frequency, Duration) Notes Start Date End Date Status Vyvanse 40 MG 1 cap(s) orally once a day (in the morning); Duration: 30 day(s) 03/01/2023 Ac tive Problems Problem Type SNOMED Code ICD Code Onset Dates Problem Status W/U Status Risk Notes Problem Chronic mucoid otitis media of left middle ear (disorder) (4682415090724109 ) Chronic mucoid otitis media, left ear (H65.32) Active confirmed Problem Attention deficit hyperactivity disorder (054854747) ADHD (attention deficit hyperactivity disorder), combined type (F90.2) Active confirmed Problem Sleep disturbance (44516159) Sleep disturbance (G47.9) Active confirmed Problem Low weight, pediatric, BMI less than 5th percentile for age (Z68.51) Active confirmed Problem Anxiety state (411227690) Anxiety in pediatric patient (F41.9) Active confirmed Problem Seasonal allergic rhinitis (943276459) Acute seasonal allergic rhinitis, unspecified trigger (J30.2) Active confirmed Encounters Encounter Location Date Provider Diagnosis [facility] [address] [place] [address] [place] [address] 10/27/2024 Provider Migration Plan Of Treatment Pending Test Test Name Order Date Physical Therapy 05/09/2020 Insurance Providers Payer Name Payer Address Payer Phone Subscriber Number Group Number Insured Name Patient Relationship to Insured Coverage Start Date Coverage End Date [employer] [facility] [address] [address] [place] [address] [id number] Wenceslao Arana Self - patient is the insured Medical (General) History Medical History History ICD Code ADHD Surgical History Surgery Date(Month/Year) Ear tubes, T and A
--- OUTSIDE RECORDS SUMMARY | 2025-02-13 22:21 | XMS_ITS | Encounter Summary ---
Author Organization Healthcare Address [address] [place] [address] Care Team Providers Care Bleach Chlorinator Name Role Phone William Lao MD Primary Care Provider Marino Bunn DO Primary Care Provider [phone] Encounter Details Date Type Department Care Team (Late st Contact Info) Description 08/12/2022 Orders Only External Location [address] [place] [address] Billy Castro MD [address] [place] [address] Social History Tobacco Use Types Packs/Day Years [...] Description 02/25/2025 10:30 AM EDT Office Visit [facility] [address] [place] [address] Екатерина Gonzalez MD [address] [place] [address] documented as of this encounter Procedures Procedure Name Priority Date/Time Associated Diagnosis Comments CT ANGIO PULMONARY EMBOLISM 08/12/2022 3:44 AM EST documented in this encounter Results * CT Angio Pulmonary Embolism (08/12/2022 3:44 AM EST) Anatomical Region Laterality Modality Chest Computed Tomogra phy 08/12/2022 3:44 AM EST Billy Castro MD IMG CT PROCEDURES Final Resu lt documented in this encounter Visit Diagnoses Not on filedocumented in this encounter Care Teams Bleach Chlorinator Relationship Specialty Start Date End Date William Lao MD [address] [place] [address] PCP - General Internal Medicine 10/05/22 01/23/25 Marino Bunn DO [address] [place] [address] [place] [address] PCP - General 01/24/25 documented as of this encounter
--- OUTSIDE RECORDS SUMMARY | 2025-02-13 22:21 | XMS_ITS | Encounter Summary ---
Author Organization Healthcare Address [address] [place] [address] Care Team Providers Care Lamp Inspector Name Role Phone Marino Bunn Primary Care Provider [phone] Encounter Details Date Type Department Care Team (Latest Contact Info) Description 02/11/2025 Travel Social History Tobacco Use Types Packs/Day [...] drink first t seven in the morning (EYE-CUSTOM CLOTHIER) to steady your nerves or to get [...] (Past 1 Month) No 025 6:33 AM EDT Maria De Jesus Esquivel RN 2. Non-Specific Active Suici becky Thoughts (Past 1 Month) No 02/11/2025 6:33 AM EDT Michael Esquivel RN 6. Suicidal Behavior (Lifetime) No 6:33 AM EDT Maria De Jesus Esquivel RN documented as of this encounter Plan of Treatment Upcoming Encounters Date Type Department Care Team (Late st Contact Info) Description 02/25/2025 10:30 AM EDT Office Visit [facility] Otol[facility]ology [address] [place] [address] Екатерина Gonzalez MD [address] [place] [address] documented as of this encounter [...] documented as of this encounter Care Teams Lamp Inspector Relationship Specialty Start Date End Date Marino Bunn DO [address] [facility] [address] [place] [address] PCP - General 01/24/25 documented as of this encounter
[2025-02-13 22:25] VITALS: BP 131/67; PULSE 69; RESP 20; TEMP 36.7; O2SAT 100; BMI 19.0
--- NOTE | 2025-02-13 22:28 | ED_ITS ---
Discharge Plan Disposition Patient Disposition: Home, Self-Care Condition: Good Prescriptions Prescriptions: No Action cefdinir 300 mg capsule 300 mg PO BID 10 Days Qty: 20 0RF prednisone 20 mg tablet 60 mg PO ONCE 7 Days Qty: 21 0RF ciprofloxacin-dexamethasone 0.3-0.1 % drops,suspension 4 drp otic (ear) BID 7 Days Qty: 7.5 0RF metoclopramide HCl [Reglan] 10 mg tablet 10 mg PO Q6H PRN (Reason: nausea and vomiting) Qty: 10 0RF Referrals Follow up/Referrals: Marino Bunn DO [Primary Care Provider, Family Practice] - See instructions Activity Restrictions/Add. Instructions Additional Instructions/Restrictions: Call your ENT team in the morning to let them know you are here in the emergency department and let them know that you cannot see the cottonball in your ear canal. It is okay to put the eardrops in your ear canal. Clinical Impressions Clinical Impression: Visit for wound care Print Language Print Language: Estonian Discharge ED Provider: Fabi Null Adult HPI General Chief complaint: Ear Stated complaint: wound care change on Ear from surg. Time Seen by Provider: 02/13/25 22:28 History of Present Illness HPI narrative: Patient is an otherwise healthy 19-year-old male who presented to the emergency department with concern for his left ear. Patient states that he recently had ear surgery and was told that a cottonball would be in his ear canal but patient has not seen the cottonball and therefore he is unsure what to do for his wound care. Patient denies any significant bleeding or any other acute concerns at this time. Related Data Previous Rx's ?Medication ?Instructions ?Recorded metoclopramide HCl 10 mg tablet 10 mg PO Q6H PRN nause a and 09/02/24 (Reglan) vomiting #10 tabs cefdinir 300 mg capsule 300 mg PO BID 10 days #20 ca ps 01/28/25 ciprofloxacin 0.3 %-dexamethasone 4 drp otic (ear) BID 7 days #7.5 mL 01/28/25 0.1 % ear drops,suspension prednisone 20 mg tablet 60 mg (3 x 20 mg) PO ONCE 7 days 01/28/25 #21 tabs Allergies Allergy/AdvReac Type Severity Reaction Status Date / Time azithromycin (From ZITHROMAX) Allergy Mild Rash Verified 09/02/24 18:22 PFSH PFSH Disclaimer: The information contained in this section may have been updated after the patient was seen, as this information can be updated by other users. Medical History Generalized anxiety disorder Fatigue Abnormal stress test Family history of valvular heart disease Family history of ischemic heart disease Abnormal electrocardiogram [ECG] [EKG] Surgical History History of tonsillectomy History of placement of ear tubes Family History Other Family history of kidney stone Fatigue Social History Smoking Status: Current every day smoker tobacco type: e-cigarettes years smoked: 1 second hand exposure: No alcohol intake: never counseling given: No substance use type: denies use counseling given: No current occupational status: employed Travel in the last 8 weeks?: None adopted: No caregiver/support person: No foster care: No household members: family housing: house lives independently: No marital status: single number of children: 0 number of grandchildren: 0 education level: high school Hx Recent Travel: No caffeine: No physical activity: none working smoke detector in home: Yes fire extinguisher in home: Yes carbon monox detector in home: Yes firearms in home: No do you feel safe at home: Yes victim of physical abuse: No victim of emotional abuse: No victim of sexual abuse: No would you like helpful sources: No Have you lived/traveled outside US in past 30 days?: No Contact w/someone who lives/traveled outside US past 30 days?: No Exposure to someone with infectious disease in past 14 days?: No Do you have a fever (greater than 100.4 F or 38 C)?: No Have you tested positive for COVID-19?: No Exposed to someone with COVID-19 in past 14 days?: No Do you have a sore throat?: No Do you have a cough?: No Do you have any weakness?: No Do you have any diarrhea?: No Are you experiencing any unusual bleeding?: No Do you have any muscle aches/pain?: No Do you have any abdominal pain?: No Are you experiencing loss of taste or smell?: No Other Medical History Have you received the Flu Vaccine for this season: No Have you received the Pneumonia Vaccine: No ROS Obtained: Yes All systems reviewed & no additional complaints except as documented and Yes Systems reviewed as appropriate & no additional complaints except as documented Physical Exam General General appearance: alert and in no apparent distress Head Head exam: atraumatic, normocephalic and normal inspection Eye Eye exam: Present normal appearance, PERRL and EOMI; Absent scleral icterus ENT ENT exam: Present normal exam, normal external ear exam and other (There is packing in the left ear canal unclear if soaked cottonball versus other packing unable to visualize tympanic membrane.) Neck Neck exam: Present normal inspection and full ROM Chest Chest inspection: Present normal inspection and symmetric chest wall rise Respiratory Respiratory exam: Present normal lung sounds bilaterally; Absent respiratory distress or wheezes Cardiovascular Cardiovascular exam: Present regular rate, normal rhythm and normal heart sounds Abdominal Exam Abdominal exam: Present soft and distention; Absent tenderness, guarding or rebound Extremities Exam Extremities exam: Present normal inspection and full ROM Back Exam Back exam: Present normal inspection and full ROM Neurological Exam Neurological exam: Present alert and oriented X3 Psychiatric Psychiatric exam: Present normal affect and normal mood Skin Skin exam: Present warm and dry Medical Decision Making Medical Records Screening: Per USPSTF and CDC recommendations, given the prevalence of disease in our region, it is our hospital?s policy to screen for HIV and viral Hepatitis for all patients aged 18 and over and those with ongoing risk factors. Baldemar Inquiry Pt receiving controlled substance: No Vital Signs: 02/13/25 22:25 02/13/25 22:53 Temperature 98.1 F 98.9 F Temperature Source Oral Oral Pulse Rate 62 Pulse Rate [Right] 69 Respiratory Rate 20 16 Blood Pressure 118/60 Blood Pressure [Right Arm] 131/67 Blood Pressure Mean [Right Arm] 88 Blood Pressure Position Sitting 02 Sat by Pulse Oximetry 100 Oxygen Delivery Method Room Air Room Air Medical Decision Narrative: Is an otherwise healthy 19-year-old male who presented to the emergency department with concern for a wound check of his left ear. On arrival, patient was hemodynamically stable with unremarkable vital signs. Differential includes but not limited to postoperative infection, postoperative wound care, postoperative bleeding, fracture, amongst others. Patient's ear was visualized, patient had some external bleeding, no active bleeding from from the canal. Patient had some packing in the left ear canal unclear if cottonball versus other packing. I did not feel that I should remove the packing at this time given that per instructions patient would have packing in place in the ear canal. Instructed that patient call their surgeons in the morning and discuss wound care and follow-up in their clinic no other acute concerns at this time. Critical Care Critical Care Time Critical Care Time: No
[2025-02-13 22:53] VITALS: BP 118/60; PULSE 62; RESP 16; TEMP 37.2; O2SAT 100
== END 2025-02-13 22:55 | disposition home or self-care (01) ==
PROVIDERS: Emergency Provider Student in an Organized Health Care Education/Training Program; PCP Internal Medicine
DX: T81.9XXA Unspecified complication of procedure, initial encounter (principal); Z51.89 Encounter for other specified aftercare
CPT/HCPCS: 99281

== ENCOUNTER 2025-04-20 19:48 | Emergency (ER) | payer OTHER, SELFPAY ==
--- OUTSIDE RECORDS SUMMARY | 2024-10-27 17:30 | XMS_ITS ---
Author Organization Farrah Dillard PE D [facility] Address [address] [facility] [address] [facility] [address] [place] [address] Care Team Providers Care Business Support Coordinator Name Role Phone Chao Calderon Primary Care Provider Chao Oconnor Unavailable [phone] Migration, Provider Unavailable Unavailable Allergies Allergen (clinical drug ingredient) Drug/Non Drug Allergy documented on EMR Reaction Allergy Type Onset Date Status azithromycin Zithromax rash Drug Allergy Acti ve [facility] Conversion Encounter Medications Medication SIG (Take, Route, Frequency, Duration) Notes Start Date End Date Status Vyvanse 40 MG 1 cap(s) orally once a day (in the morning); Duration: 30 day(s) 03/01/2023 Ac tive Encounters Encounter Location Date Provider Diagnosis [facility] [address] [facility] [address] [place] [phone] 10/27/2024 Provider Migration Plan Of Treatment Medication Medication Name Sig Start Date Stop Date Notes Vyvanse 40 MG 1 cap(s) orally once a day (in the morning); Duration: 30 day(s) 03/01/2023 Progress Notes * Wenceslao DELACRUZDOB:[birth year] (19 yo M)Acc No.[id number]:10/27/2024 Patient: Wenceslao VALLE Provider: Cookie sapp Migration :2005 A ge:19 Y S ex:Male Date:10/27/2024 Address:[address] [place], [place] [address] [address] [id number] Pcp:Chao Calderon Subjective: * Chief Complaints: * 1 . Multum To Medispan Conversion Encounter. * Medical History: * Allergies: Z ithromax: rash. Objective: * Vitals: Assessment: Plan: * Treatment: * * Electronic signature of Prov ider Migration on 04/20/2025 at 08:29 PM EDT Sign off status: Pending * Provider: Cookie sapp Migration Date: 0 10/27/2024 Generated for Shanna love/Gwendolyn/Alexandreaitting on: 0 04/20/2025 08:29 PM EDT
--- OUTSIDE RECORDS SUMMARY | 2025-02-25 10:30 | XMS_ITS | Encounter Summary ---
Author Organization Healthcare Address [address] [place] [address] Care Team Providers Care Mutuel Cashier Name Role Phone Marino Bunn Primary Care Provider [phone] Reason for Visit * Reason Comments Post-op Encounter Details Date Type Department Care Team (Latest Contact Info) Description 02/25/2025 10:30 AM EDT [facility] [address] [place] [address] Екатерина Gonzalez MD [address] [place] [address] Cholesteatoma of attic of ear, [...] drink first t seven in the morning (EYE-TUB ATTENDANT) to steady your nerves or to get [...] Sign Reading Time Taken Comments Blood Pressure 126/80 02/25/2025 10:27 AM EDT Pulse 102 02/25/2025 10:27 AM EDT Temperature - - Respiratory Rate - - Oxygen Saturation - - Inhaled Oxygen Concentration - - Weight 63.3 kg (139 lb 8.8 oz) 02/25/2025 10:27 AM EDT Height - - Body Mass Index 18.93 02/14/2025 1:21 PM EDT documented in this encounter Miscellaneous Notes * Progress Notes - Екатерина Gonzalez MD - 02/25/2025 10:30 AM EDT Dear Providers, Thank you for requesting a consultation of your patient. My full consultation follows: It was a pleasure to evaluate Wenceslao Arana a pleasant 19 y.o. male who presents today s/p L cartilage tympmastoid for cholesteatoma. He was seen on 02/14 as he went to outside ED due to concern forremoving cottonball. He say our EAR SPECIALIST Anne-Marie. OPERATIVE FINDINGS: Tympanic Membrane: Intact with large [...] to reconstruct superior aspect of tympanic membrane Past medical history reviewed/non-contributory. Past surgical history [...] intact, middle ear aerated. Left: Pinna normal. Incision intact Otomicroscopic exam: external auditory canal cleared of gelfoam, TM flap intact. Results: Outside Audiometry 12/27/24 : personally reviewed R hearing wnl, L with CHL CT temporal bone 01/17/25: images personally reviewed and per report, L mastoid effusion, attic cholesteatoma, hypotympanum is clear, scutal erosion. Tegmen intact Impression/Plan: Left COM with cholesteatoma s/p cartilage tympmastoid 02/11 L CHL -Doing well post-op. -He will decrease the drops to once daily for the next 2-3 wks. -Dry ear precautions in the interim. -RTC 3mths with post-op audio. The patient has been counseled on tobacco cessation: Not Applicable Thank you very much for allowing me to participate in the care of this patient. If you have any questions, please do not hesitate to contact me. Sincerely, Екатерина Gonzalez MD FACS Saw Repairer, Division of Otology, Neurotology, & Cranial Base Surgery, Department of Otolaryngology Head & Neck Surgery [facility] [phone] documented in this encounter Plan of Treatment Upcoming Encounters Date Type Department Care Team (Late st Contact Info) Description 05/28/2025 10:00 AM EST Office Visit [facility] Audiology [address] [place] [address] Snow Mcginnis, PhD [address] [facility] [address] [place] [address] 05/28/2025 10:30 AM EST Office Visit [facility] Otolaryngology [address] [place] [address] Екатерина Gonzalez MD [address] [facility] [address] [place] [address] documented as of this encounter Visit Diagnoses Diagnosis Cholesteatoma of attic of ear, left- Primary documented in this encounter Additional Health Concerns Assessment Noted Time PHQ-9 Depression Total Score: 0 10/27/19 2:08 AM EDT A Body Mass Index follow-up plan has been documented for the patient 02/25/2025 12:51 PM EDT documented as of this encounter Care Teams Mutuel Cashier Relationship Specialty Start Date End Date Marino Bunn DO [address] [place] [address] [place] [address] PCP - General 01/24/25 documented as of this encounter
[2025-04-20 20:17] VITALS: BP 136/93; PULSE 65; RESP 12; TEMP 37.1; O2SAT 97; BMI 17.6
--- OUTSIDE RECORDS SUMMARY | 2025-04-20 20:29 | XMS_ITS | Encounter Summary ---
Author Organization Healthcare Address [address] [place] [address] Care Team Providers Care Intellectual Property Counsel Name Role Phone Marino Bunn Primary Care Provider [phone] Reason for Visit * Reason Onset Date Comments HCN Clinical Concern/Question 04/16/2025 Encounter Details Date Type Department Care Team (Late st Contact Info) Description 04/16/2025 Telephone [facility] [address] [place] [address] Екатерина Gonzalez MD [address] [place] [address] HCN Clinical Concern/Question Social History [...] drink first t seven in the morning (EYE-PHOTO PRINTER) to steady your nerves or to get rid of a hangover? 0 10/26/2024 CAGE Questionnaire Score 0 025 Sex and Gender Information Value Date Recorded Sex Assigned at Not on file Legal Sex Male 12:33 PM EDT Gender Identity Not on file Sexual Orientation Not on file documented as of this encounter Miscellaneous Notes * Telephone Encounter - Cammy Wise - 04/16/2025 4:30 PM EDT I talked to the provider's coordinator, and I contacted the patient, and I got him scheduled for anappointment. * Telephone Encounter - Kalpana Mcclain - 04/16/2025 3:49 PM EDT Clinical Concern/Question Reason for Call: Pt experiencing ear pain in the ear that pt had surgery on. Thanks! Best contact number: [phone] (mobile) Optimal time of day to reach caller: ANYTIME Additional comments/information from caller: None Note: Please do not reply to this message. Follow-up communication and further actions as a result of this message need to be communicated with the patient directly, if the patient is not active onMyChart. If the patient is active on MyChart, they will receive notification of the communication/outcome via Pleyhart. documented in this encounter Plan of Treatment Upcoming Encounters Date Type Department Care Team (Late st Contact Info) Description 05/28/2025 10:00 AM EST Office Visit [facility] Audiology [address] [place] [address] Snow Mcginnis, PhD [address] [place] [address] 05/28/2025 10:30 AM EST [facility] [address] [place] [address] Екатерина Gonzalez MD [address] [place] [address] documented as of this encounter Visit Diagnoses Not on filedocumented in this encounter Additional Health Concerns Assessment Noted Time PHQ-9 Depression Total Score: 0 10/27/19 2:08 AM EDT A Body Mass Index follow-up plan has been documented for the patient 02/25/2025 12:51 PM EDT documented as of this encounter Care Teams Intellectual Property Counsel Relationship Specialty Start Date End Date Marino Bunn DO [address] [facility] [address] [place] [address] PCP - General 01/24/25 documented as of this encounter
--- OUTSIDE RECORDS SUMMARY | 2025-04-20 20:29 | XMS_ITS | Encounter Summary ---
Author Organization [facility] Address [address] [place] [address] Care Team Providers Care Cook Fish Eggs Name Role Phone Marino Bunn Primary Care Provider [phone] Encounter Details Date Type Department Care Team (Late st Contact Info) Description 04/18/2025 Telephone [facility] [facility] [address] [place] [address] Lisbeth Garcia [place] [id number] Social History Tobacco Use Types Packs/Day Years [...] drink first t seven in the morning (EYE-BAR TENDER) to steady your nerves or to get [...] Description 05/28/2025 10:00 AM EST Office Visit [facility] Audiology [address] [place] [address] Snow Mcginnis, PhD [address] [facility] [address] [place] [address] 05/28/2025 10:30 AM EST Office Visit [facility] Otolaryngology [address] [place] [address] Екатерина Gonzalez MD [address] [facility] [address] [place] [address] documented as of this encounter Visit Diagnoses Not on filedocumented in this encounter Additional Health Concerns Assessment Noted Time PHQ-9 Depression Total Score: 0 10/27/19 25 2:08 AM EDT A Body Mass Index follow-up plan has been documented for the patient 02/25/2025 12:51 PM EDT documented as of this encounter Care Teams Cook Fish Eggs Relationship Specialty Start Date End Date Marino Bunn DO [address] [facility] [address] [place] [address] PCP - General 01/24/25 documented as of this encounter
--- OUTSIDE RECORDS SUMMARY | 2025-04-20 20:29 | XMS_ITS | Encounter Summary ---
Author Organization Healthcare Address [address] [place] [address] Care Team Providers Care Assembly Line Inspector Name Role Phone Marino Bunn Primary Care Provider [phone] Reason for Visit * Reason Onset Date Comments HCN Clinical Concern/Question 03/05/2025 Encounter Details Date Type Department Care Team (Late st Contact Info) Description 03/05/2025 Telephone [facility] [address] [place] [address] Екатерина Gonzalez MD [address] [place] [address] HCN Clinical Concern/Question Social History [...] drink first t seven in the morning (EYE-TOOL HONING MACHINE SET UP OPERATOR) to steady your nerves or to get rid of a hangover? 0 10/26/2024 CAGE Questionnaire Score 0 025 Sex and Gender Information Value Date Recorded Sex Assigned at Not on file Legal Sex Male 12:33 PM EDT Gender Identity Not on file Sexual Orientation Not on file documented as of this encounter Miscellaneous Notes * Telephone Encounter - Deirdre Hyman - 03/05/2025 4:35 PM EDT Working on this. * Telephone Encounter - Alessandro Penn - 03/05/2025 2:03 PM EDT Clinical Concern/Question Reason for Call: None He had a procedure about a month ago on left ear. That ear is having a lot ofdrainage. He would like to talk to someone about it. I tried the nurse line, but n/a. Best contact number: [phone] (mobile) Optimal time of day to reach caller: ANYTIME Additional comments/information from caller: None Note: Please do not reply to this message. Follow-up communication and further actions as a result of this message need to be communicated with the patient directly, if the patient is not active onMyChart. If the patient is active on MyChart, they will receive notification of the communication/outcome via [email or web address]. documented in this encounter Plan of Treatment Upcoming Encounters Date Type Department Care Team (Late st Contact Info) Description 05/28/2025 10:00 AM EST Office Visit [facility] Audiology [address] [place] [address] Snow Mcginnis, PhD [address] [place] [address] 05/28/2025 10:30 AM EST Office Visit [place] [facility] [address] [place] [address] Екатерина Gonzalez MD [address] [place] [address] documented as of this encounter Visit Diagnoses Not on filedocumented in this encounter Additional Health Concerns Assessment Noted Time PHQ-9 Depression Total Score: 0 10/27/19 2:08 AM EDT A Body Mass Index follow-up plan has been documented for the patient 02/25/2025 12:51 PM EDT documented as of this encounter Care Teams Assembly Line Inspector Relationship Specialty Start Date End Date Marino Bunn DO [address] [place] [address] PCP - General 01/24/25 documented as of this encounter
--- OUTSIDE RECORDS SUMMARY | 2025-04-20 20:29 | XMS_ITS | Encounter Summary ---
Author Organization Healthcare Address [address] [place] [address] Care Team Providers Care Clinic Receptionist Name Role Phone Marino Bunn DO Primary Care Provider [phone] Encounter Details Date Type Department Care Team (Late st Contact Info) Description 03/05/2025 Orders Only [place] [facility] [address] [place] [address] Екатерина Gonzalez MD [address] [place] [address] Cholesteatoma of attic of ear, [...] drink first t seven in the morning (EYE-ICE BAG ASSEMBLER) to steady your nerves or to [...] Description 05/28/2025 10:00 AM EST Office Visit [facility] Audiology [address] [place] [address] Snow Mcginnis, PhD [address] [place] [address] 05/28/2025 10:30 AM EST Office Visit [facility] Otolaryngology [address] [place] [address] Екатерина Gonzalez MD [address] [facility] [place] [address] documented as of this encounter Visit Diagnoses Diagnosis Cholesteatoma of attic of ear, left- Primary documented in this encounter Additional Health Concerns Assessment Noted Time PHQ-9 Depression Total Score: 0 10/27/19 2:08 AM EDT A Body Mass Index follow-up plan has been documented for the patient 02/25/2025 12:51 PM EDT documented as of this encounter Care Teams Clinic Receptionist Relationship Specialty Start Date End Date Marino Bunn DO [address] [facility] [address] [place] [address] PCP - General 01/24/25 documented as of this encounter
--- OUTSIDE RECORDS SUMMARY | 2025-04-20 20:29 | XMS_ITS | Encounter Summary ---
Author Organization Healthcare Address [address] [place] [address] Care Team Providers Care Supervisor Cloth Winding Name Role Phone Marino Bunn Primary Care Provider [phone] Encounter Details Date Type Department Care Team (Late st Contact Info) Description 03/05/2025 Orders Only [place] [facility] Ot[facility] [address] [place] [address] Екатерина Gonzalez MD [address] [place] [address] Cholesteatoma of attic of ear, left Social History Tobacco Use Types Packs/Day Years [...] drink first t seven in the morning (EYE-DIESEL PILE DRIVER OPERATOR) to steady your nerves or to [...] Description 05/28/2025 10:00 AM EST Office Visit [facility] Audiology [address] [place] [address] Snow Mcginnis, PhD [address] [place] [address] 05/28/2025 10:30 AM EST Office Visit [facility] Otolaryngology [address] [place] [address] Екатерина Gonzalez MD [address] [place] [address] documented as of this encounter Visit Diagnoses Diagnosis Cholesteatoma of attic of ear, left documented in this encounter Additional Health Concerns Assessment Noted Time PHQ-9 Depression Total Score: 0 10/27/19 25 2:08 AM EDT A Body Mass Index follow-up plan has been documented for the patient 02/25/2025 12:51 PM EDT documented as of this encounter Care Teams Supervisor Cloth Winding Relationship Specialty Start Date End Date Marino Bunn DO [address] [place] [address] PCP - General 01/24/25 documented as of this encounter
--- OUTSIDE RECORDS SUMMARY | 2025-04-20 20:29 | XMS_ITS | Patient Health Record ---
Author Organization [facility] Address [address] [place] [address] [place] [address] Care Team Providers Care Combination Saw Operator Name Role Phone Chao Calderon Primary Care Provider Chao Oconnor Unavailable [phone] Migration, Provider Unavailable Unavailable Allergies Allergen (clinical [...] otitis media of left middle ear (disorder) (4753955767841469 ) Chronic mucoid otitis media, left ear (H65.32) Active confirmed Problem Attention deficit hyperactivity disorder (188754717) ADHD (attention deficit hyperactivity disorder), combined type (F90.2) Active confirmed Problem Sleep disturbance (85643099) Sleep disturbance (G47.9) Active confirmed Problem Low weight, pediatric, BMI less than 5th percentile for age (Z68.51) Active confirmed Problem Anxiety state (231670050) Anxiety in pediatric patient (F41.9) Active confirmed Problem Seasonal allergic rhinitis (111845160) Acute seasonal allergic rhinitis, unspecified trigger (J30.2) Active confirmed Encounters Encounter Location Date Provider Diagnosis [facility] [address] [place] [address] [place] [address] 10/27/2024 Provider Migration Plan Of Treatment Pending Test Test Name Order Date Physical Therapy 05/09/2020 Insurance Providers Payer Name Payer Address Payer Phone Subscriber Number Group Number Insured Name Patient Relationship to Insured Coverage Start Date Coverage End Date [employer] [facility] [address] [address] [place] [address] [id number] Wenceslao Arana Self - patient is the insured Medical (General) History Medical History History ICD Code ADHD Surgical History Surgery Date(Month/Year) Ear tubes, T and A
--- OUTSIDE RECORDS SUMMARY | 2025-04-20 20:29 | XMS_ITS | Clinical Summary ---
Author Organization [facility] Address [address] [place] [address] Care Team Providers Care Ink Printer Name Role Phone Marino Bunn Primary Care Provider [phone] Allergies Active Allergy Reactions Criticality Noted Date Comments Azithromycin Anaphylaxis High 10/26/2024 Medications ciprofloxacin-d examethasone (CiproDEX) otic suspension Administer 4 drops into the left ear 2 times a day. Active predniSONE (Deltasone) 20 MG tablet Take 1 tablet by mouth daily. Active promethazine (Phenergan) 12.5 MG tablet Take 1 tablet by mouth every 6 hours as needed for nausea or vomiting. 15 tablet Active Additional Information Patient not taking.Reported on 02/25/2025 HYDROcodone-miriam taminophen (Ladysmith) 5-325 MG tablet Take 1 tablet by mouth every 6 hours as needed for moderate pain or severe pain. 15 tablet 5 Active Additional Information Patient not taking.Reported on 02/25/2025 Active Problems Problem Noted Date Diagnosed Date Cholesteatoma of attic of ear, left 01/24/2025 Anxiety disorder 10/26/2024 Encounters Date Type Department Care Team Description 04/18/2025 Telephone [facility] Otolaryngology [address] [address] Lisbeth Garcia 04/16/2025 Telephone [facility] Otolaryngology [address], [facility] [place] [address] Екатерина Gonzalez MD HCN Clinical Concern/Question 03/05/2025 Orders Only [facility] Otolaryngology [address], [address] [place] [address] [place] [phone] Екатерина Gonzalez MD Cholesteatoma of attic of ear, left 03/05/2025 Orders Only [facility] Otolaryngology [address], [address] [place] [address] [place] [address] Екатерина Gonzalez MD Cholesteatoma of attic of ear, left 03/05/2025 Orders Only [facility] Otolaryngology [address], [address] [place] [address] [place] [address] Екатерина Gonzalez MD Cholesteatoma of attic of ear, left (Primary Dx) 03/05/2025 Telephone [facility] Otolaryngology [facility] [address], [address] [place] [address] [place] [address] Екатерина Gonzalez MD HCN Clinical Concern/Question 02/25/2025 10:30 AM EDT Office Visit [facility] Otolaryngology [address], [address] [place] [address] [place] [phone] Екатерина Gonzalez MD Cholesteatoma of attic of ear, left (Primary Dx) 02/25/2025 Travel 02/14/2025 1:30 PM EDT Consult [facility] Otolaryngology [address], [address] [place] [address] [place] [phone] Emili Ball APRN Cholesteatoma of attic of ear, left (Primary Dx); History of tympanomastoidectomy 02/14/2025 Travel 02/14/2025 Telephone [facility] Otolaryngology [address], 3[address] [place] [phone] Vj Story Appointment 02/14/2025 Telephone [facility] Otolaryngology [address] [place] [phone] Екатерина Gonzalez MD HCN Same Day Appt/Overbook Request 02/11/2025 7:30 AM EDT - 02/11/2025 11:15 AM EDT Surgery [facility] Advanced Surgery [address] [place] [phone] Екатерина Gonzalez MD LEFT TYMPANOPLASTY AND MASTOIDECTOMY [66943 (CPT ) +1 more] 02/11/2025 7:28 AM EDT Anesthesia Event [facility] Surgery [address] [place] [address] Edith Norris MD Kilbane, Brianna N, 02/11/2025 5:06 AM EDT - 02/11/2025 12:28 PM EDT Hospital Encounter [address] [phone] Екатерина Gonzalez MD Cholesteatoma of attic of ear, left Discharge Disposition: Home or Self Care 02/11/2025 Travel 01/30/2025 8:50 AM EDT Office Visit [facility] Otolaryngology [address] [place] [address] Екатерина Gonzalez MD Cholesteatoma of attic of ear, left (Primary Dx) 01/30/2025 Travel 01/29/2025 Telephone [facility] Otolaryngology [address] [place] [phone] Екатерина Gonzalez MD HCN Clinical Concern/Question 01/24/2025 4:10 PM EDT Consult [facility] Otolaryngology [address] [place] [phone] Екатерина Gonzalez MD Cholesteatoma of attic of ear, left (Primary Dx) 01/24/2025 Travel 01/21/2025 Telephone [facility] Otolaryngology [address], 3rd [place] [address] Vj Story 01/21/2025 Telephone [facility] Otolaryngology [address], 3rd [place] [address] Anali Becerril from Last 3 Months Family History Medical [...] drink first t seven in the morning (EYE-TUBE KNITTER) to steady your nerves or to get [...] Pulse 102 02/25/2025 10:27 AM EDT Temperature 36.5 C (97.7 F) 02/11/2025 12:05 PM EDT Respiratory Rate 12 02/11/2025 12:05 PM EDT Oxygen Saturation 98% 02/11/2025 12:10 PM EDT Inhaled Oxygen Concentration - - Weight 63.3 kg (139 lb 8.8 oz) 02/25/2025 10:27 AM EDT Height 182.9 cm (6') 02/14/2025 1:21 PM EDT Body Mass Index 18.93 02/14/2025 1:21 PM EDT Plan of Treatment Upcoming Encounters Date Type Department Care Team (Late st Contact Info) Description 05/28/2025 10:00 AM EST Office Visit [facility] Audiology [address], 3rd [place] [address] Snow Mcginnis, PhD [address] [place] [address] 05/28/2025 10:30 AM EST Office Visit [facility] Otolaryngology [address], 3rd [place] [address] Екатерина Gonzalez MD [address] [place] [address] Health Maintenance Due Date Last Done Comments [facility]-HIV Screening 2003 [facility]-Hepatitis C Screening 2003 [facility]-Infant/Child/Adol SDOH Screenings 2003 [facility]TI-QTBQS-68 Vaccine (#1) 2008 HPV Vaccines (1 - Male 3-dose series) 2018 [facility]-Hepatitis A Vaccines (2 of 2 - 2-dose series) 02/12/2019 08/15/2018 [facility]- SDOH Screenings 2021 [facility]-Adult SDOH Screenings 2021 [facility]-Zoster Vaccines (1 of 2) 2022 03/01/2016, 09/23/2004 [facility]-Influenza Vaccine (#1) 2025 [facility]-Depression Screening 10/26/2025 10/26/2024, 10/2024 [facility]-DTaP,Tdap,and Td Vaccines (7 - Td or [...] ANESTHESIA PLACEHOLDER Routine 02/11/2025 7:33 AM EDT AK AN ELECTIVE ENDOTRACHEAL AIRWAY Routine 02/11/2025 7:33 AM EDT RECONSTRUCTION, OSSICULAR CHAIN 02/11/2025 7:18 AM EDT Cholesteatoma of attic of ear, left Special Needs bed 180 requiring airway extension, endotracheal tube off to nonoperative side, no long acting paralysis AK EAR CARTILAGE GRAFT TO FACE 02/11/2025 7:18 AM EDT Cholesteatoma of attic of ear, left Special Needs bed 180 requiring airway extension, endotracheal tube off to nonoperative side, no long acting paralysis AK TYMPANOPLAS/MASTOID ,INTCT WALL,REBLD 02/11/2025 7:18 AM EDT Cholesteatoma of attic of ear, left Special Needs bed 180 requiring airway extension, endotracheal tube off to nonoperative side, no long acting paralysis from Last 3 Months Results * Surgical Pathology Exam (02/11/2025 9:49 AM EDT) Case Report Surgical Pathology Case: [id number] Authorizing Provider: Екатерина Gonzalez MD Collected: 02/11/2025 0949 Ordering Location: [facility] Received: 02/11/2025 1220 Surgery Pathologist: Pedro Pablo Waite MD Specimen: Ear, Left, Left mastoid contents 02/13/2025 10:01 AM EDT [facility] Final Diagnosis A. MASTOID, LEFT, TYMPANOMASTOIDEC CAMMIE: - CHOLESTEATOMA WITH SURROUNDING INFLAMMATION 02/13/2025 10:01 AM EDT [facility] at 1001 EDT Clinical Information Cholesteatoma of attic of ear, left [H71.02] 02/13/2025 10:01 AM EDT [facility] Gross Description A. LEFT MASTOID CONTENTS Received in formalin labeled left mastoid contents is an aggregate of pink-tilley soft tissue measuring 0.7 x 0.5 x 0.4 cm. The specimen is entirely submitted in cassette A1. Jenny Burr Sadiq 02/13/2025 10:01 AM EDT [facility] Note: A resident was involved in the service. I attest I examined the relevant preparations for the specimens and confirmed the diagnosis or interpretation. 02/13/2025 10:01 AM EDT [facility] Tissue Left ear structure / Unknown 02/11/2025 9:49 AM EDT 02/11/2025 12:20 PM EDT Comment:Pre-op diagnosis: Cholesteatoma of attic of ear, left [H71.02] us Екатерина Gonzalez MD LAB PATHOLOGY ORDERABLES Final Result [facility] [address] [place] [address] * AK AN ELECTIVE ENDOTRACHEAL AIRWAY, PB ANESTHESIA PLACEHOLDER [...] pressure Endotracheal tube insertion site: oral Blade: Ejnnifer Blade size: #3 ETT size (mm): 8.0 Cormack-Lehane Classification: grade IIb - view of arytenoids or posterior of glottis only Placement verified by: chest auscultation and capnometry Cuff volume (mL): 8 Measured from: lips ETT to lips (cm): 22 Additional Comments Atraumatic. No change to dentition. Anterior airway. Edith Norris MD ANESTHESIA ORDERABLES Final Result from Last 3 Months Insurance [facility] MEDICAID Care Teams Ink Printer Relationship Specialty Start Date End Date Marino Bunn DO [address] [place] [facility] [address] [address] PCP - General 01/24/25
--- OUTSIDE RECORDS SUMMARY | 2025-04-20 20:29 | XMS_ITS | Encounter Summary ---
Author Organization Healthcare Address [address] [place] [address] Care Team Providers Care Green Plumber Name Role Phone William Lao MD Primary Care Provider Marino Bunn DO Primary Care Provider [phone] Encounter Details Date Type Department Care Team (Late Contact Info) Description 08/12/2022 Orders Only External Location [address] [place] [address] Billy Castro MD [address] [place], [place] [phone] Social History Tobacco Use Types Packs/Day Years Used Date Smoking Tobacco: Never Assessed Sex and Gender Information Value Date Recorded Sex Assigned at Not on file Legal Sex Male 12:33 PM EDT Gender Identity Not on file Sexual Orientation Not on file documented as of this encounter Plan of Treatment Upcoming Encounters Date Type Department Care Team (Late Contact Info) Description 05/28/2025 10:00 AM EST Office Visit [facility] Audiology [address], 3rd [place] [phone] Snow Mcginnis, PhD [address] [place] [phone] 05/28/2025 10:30 AM EST Office Visit [facility] Otolaryngology [address], 3rd [place] [address] Екатерина Gonzalez MD [address] [place] [address] documented as of this encounter Procedures Procedure [...] on filedocumented in this encounter Care Teams Green Plumber Relationship Specialty Start Date End Date William Lao MD [address] [place] [address] PCP - General Internal Medicine 10/05/22 01/23/25 Marino Bunn DO [address] [place] [address] [place] [address] PCP - General 01/24/25 documented as of this encounter
--- OUTSIDE RECORDS SUMMARY | 2025-04-20 20:29 | XMS_ITS | Encounter Summary ---
Author Organization Healthcare Address [address] [place] [address] Care Team Providers Care Gastroenterologist Name Role Phone Marino Bunn Primary Care Provider Encounter Details Date Type Department Care Team (Late st Contact Info) Description 03/05/2025 Orders Only [facility] Otolaryngology [address], 3rd [place] [address] Екатерина Gonzalez MD [address] [place] [address] Cholesteatoma of attic of ear, [...] drink first t seven in the morning (EYE-TOURIST HOME KEEPER) to steady your nerves or to get [...] Description 05/28/2025 10:00 AM EST Office Visit [facility] Audiology [address], 3rd [place] [address] Snow Mcginnis, PhD [address] [place] [address] 05/28/2025 10:30 AM EST Office Visit [facility] Otolaryngology [address], 3rd [place] [address] Екатерина Gonzalez MD [address] [place] [address] documented as of this encounter Visit Diagnoses Diagnosis Cholesteatoma of attic of ear, left documented in this encounter Additional Health Concerns Assessment Noted Time PHQ-9 Depression Total Score: 0 10/27/19 25 2:08 AM EDT A Body Mass Index follow-up plan has been documented for the patient 02/25/2025 12:51 PM EDT documented as of this encounter Care Teams Gastroenterologist Relationship Specialty Start Date End Date Marino Bunn DO [address] [address] PCP - General 01/24/25 documented as of this encounter
--- OUTSIDE RECORDS SUMMARY | 2025-04-20 20:29 | XMS_ITS | Encounter Summary ---
Author Organization Healthcare Address [address] [place] [address] Care Team Providers Care Arboreal Scientist Name Role Phone Marino Bunn Primary Care Provider [phone] Encounter Details Date Type Department Care Team (Latest Contact Info) Description 02/25/2025 Travel Social History Tobacco Use Types Packs/Day [...] drink first t seven in the morning (EYE-CANDY PULLER) to steady your nerves or to get [...] Description 05/28/2025 10:00 AM EST Office Visit [facility] Audiology [address], 3rd [place] [address] Snow Mcginnis, PhD [address] [facility] [address] [place] [address] 05/28/2025 10:30 AM EST Office Visit [facility] Otolaryngology [address], 3[address] [place] [address] Екатерина Gonzalez MD [address] [facility] [address] [place] [address] documented as of this encounter Visit Diagnoses Not on filedocumented in this encounter Additional Health Concerns Assessment Noted Time PHQ-9 Depression Total Score: 0 10/27/19 2:08 AM EDT A Body Mass Index follow-up plan has been documented for the patient 02/25/2025 12:51 PM EDT documented as of this encounter Care Teams Arboreal Scientist Relationship Specialty Start Date End Date Marino Bunn DO [address] [facility] [address] [address] PCP - General 01/24/25 documented as of this encounter
--- OUTSIDE RECORDS SUMMARY | 2025-04-20 20:29 | XMS_ITS | Data Portability ---
Author Organization [place] - [facility] Address [address] [place] [address] Care Team Providers Care Pipe And Test Supervisor Name Role Phone MAYELIN GARDNER Primary Care Provider [phone] Assessment No assessment recorded. Plan of Treatment Reminders Order Date Submit Date Provider Last Modified By Organization Details Last Modified Time Details Appointments None recorded. Lab None recorded. Referral None recorded. Procedures None recorded. Surgeries None recorded. Imaging CT, temporal bone, w/o contrast [address] (Centralized Scheduling), [address] [place], [address], 5 14:09:07 Medication Orders ciprofloxac in 0.3 %-dexametha sone 0.1 % ear drops,suspe nsion 2024 025 [facility][id number], [address] [place], [address], 5 15:32:19 fluticasone propionate 50 mcg/actuati on nasal spray,suspe nsion 2024 025 [facility][id number], [address] [place], [address], 5 15:32:48 Patient TargetsNo targets recorded. Patient InstructionsNo instructions recorded. Reason for Referral None Reported. Results Created Date Observation Date Name Description Value Unit Range Abnormal Flag Note LastModifiedBy Organization Detail LastModifiedTime 01/02/2012/27/2024 audio gram No observ ation [place] [id number] Not Available 13:45:40 01/18/20 25 01/09/2025 CT tempo rl bone wo [facility] [address] [place] [address] Phone: Fax: Name: JOSE A SACNHES Exam Date: 025 : 004 Age 19 years Gender : M Access ion: [id number] Physic desean: COFFMA N, CRISTIAN [...] FINDIN GS: The caroti d canals and commercial intern al jugula r forame n are [...] the anteri or aspect of the left vp global al audito ry canal which may repres ent underl jerardo cerume n or soft tissue mass. The right middle ear ossicl es are unrema rkable . The commercial intern al audito ry canals , semici [...] the anteri or aspect of the left vp global al audito ry canal which may repres [...] [facility] Legall y authen ticate d by SCOTT BOB W 01-17 09:31: 55 CC'ed Logic: Orderi ng Provid er: SERA LUND Attend ing Provid er: SERA LUND Admitt ing Provid er: SERA LUND [facility] [address], [place], [address], 01/17/2025 10:27:23 Result Notes None recorded. 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 Procedures Surgical History Date Name Laterality Status Provider Name and Address Organization Details Recorded Time tonsilectom y/adenoids completed Princess WINSTON [facility] & [place] 11/28/2024 15:21:47 Imaging Results None recorded. Procedure Notes None recorded. Medical Equipment None Reported. Allergies Allergen ID Allergen Name Allergen Category Reaction Reaction Severity Criticality Documentation Date Start Date Code Code System Note Provider Name and Address Organization Details Recorded Time 543882 azithromy hitesh medicatio n Not available Not available Not available 11/28/2024 93257 RxNorm Princess Kaplan iacha vázquez, [facility] & [place] 15:21:21 Medications Name Sig Start Date Stop [...] Address Organization Details Last Updated DateTime 11/28/2024 00958.84 g 98.6 [degF] Princess [facility] [place] 11/28/2024 15:20:53 Social History None recorded. Functional Status None recorded. Mental Status None recorded. Family History Nothing Reported. Medical History Condition Response Allergies/Hayfever N Heart Problems N None N Heart Conditions N Emphysema N Migraines N Thyroid Problems N Developmental Delay N Depression N Glaucoma N Anemia N Immune System Disorder N Anesthesia Complications N Heart Attack (MS) N Diabetes N Anxiety Disorder N Bleeding Disorder N Hearing Loss N Arthritis N Tuberculosis N Hyperlipidemia N Acid Reflux (GERD) N Cancer N Stroke N Asthma N Sleep Disorder N GERD/Reflux N Heart Disease N Headaches N Fibromyalgia N Hypertension N Speech Delay N Kidney Disease N Past Encounters Encounter ID Performer Location Encounter Start Date Encounter Closed Date Diagnosis/Indication Diagnosis SNOMED-CT Code Diagnosis ICD10 Code Diagnosis IMO Codes Diagnosis Note [id number] CRISTIAN GARDNER NP [facility] [address] 6 11/28/2024 15:09:13 11/28/2024 15:32:15 Acute otitis externa of left ear 9944026916 107415 H60.502 [id number] Will see him back in 4 weeks w/ audiogram. Acute non- suppurative serous otitis media 925180957 H65.02 7378553504 Bilateral tympanosclerosis 6892890234 1841642 H74.03 9882019 History of procedure 416 432613 Z96.22 [id number] CRISTIAN GARDNER NP [facility] [id number] 12/27/2024 15:33:01 12/27/2024 15:50:24 Conductive hearing loss of left ear with normal hearing on right side 7906518999 H90.12 [id number] LE otorrhea has resolved since last visit. [...] CT or sooner if needed. 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 1748361984 H90.12 [id number] Health Concerns Section Related Observation LastModified by Organization Detai ls LastModified Time None Recorded Concern Status LastModified by Organization Details LastModified Time None Recorded Advance Directives Directive None Recorded Payers Insurance Date Sequence Insurance Name Policy Number Policy Peterson Covered Member ID Peterson Member ID Guarantor Name 12/24/2024 1 [employer] [facility] (MEDICAID HMO) Wenceslao Arana [id number] Wenceslao Arana Notes Date Note Type Note Provider Name and Address Organization Details Recorded Time 11/28/2024 text/html 11/28/24 - 19 year old male in office for left ear pain x 3 weeks. Patient says his left ear is draining a green color. Patient says he used a Q-tip on his left outer ear before her went to [facility] hospital and he saw blood. Patient is not currently taking any medications. Patient says he can hear normally but does have come occasional ringing. He has had multiple sets of ear tubes as a child. Patient denies any pain, drainage, or hearing loss in the right ear. He finished entire course of augmentin that was prescribed to him by [facility] ED on 11/05. States the pain in his LE has improved significantly but still occasionally comes and goes. CRISTIAN GARDNER, BELA [address], [facility], [place], [address], [facility] [place] 11/28/2024 15:36:20 12/27/2024 text/html Wenceslao was seen [...] annually. ABELARDO BENSON, SARAH [address], [place], [address], [facility] & [place] 12/27/2024 15:47:55 12/27/2024 text/html 12/27/24 - 19 [...] left outer ear before her went to [facility] hospital and he saw blood. Patient is not currently taking any medications. Patient says he can hear normally but does have come occasional ringing. He has had multiple sets of ear tubes as a child. Patient denies any pain, drainage, or hearing loss in the right ear. He finished entire course of augmentin that was prescribed to him by [facility] on 11/05. States the pain in his LE has improved significantly but still occasionally comes and goes. CRISTIAN GARDNER NP [address], [place], [address], [facility] & [place] 12/27/2024 15:55:14
--- OUTSIDE RECORDS SUMMARY | 2025-04-20 20:30 | XMS_ITS | Encounter Summary ---
Author Organization Healthcare Address [address] [place] [address] Care Team Providers Care Exhibitions And Collections Manager Name Role Phone William Lao MD Primary Care Provider [phone] Marino Bunn DO Primary Care Provider [phone] Encounter Details Date Type Department Care Team (Late Contact Info) Description 10/05/2022 Orders Only External Location [address] [place] [address] [facility], [place] [address] [facility] [address] [place] [address] Social History Tobacco Use Types Packs/Day Years [...] 05/28/2025 10:00 AM EST Office Visit [facility] Audiology [address], [address] [place] [phone] Snow Mcginnis, PhD [address] [place] [address] 05/28/2025 10:30 AM EST Office Visit [facility] Otolaryngology [address], [address] [place] [address] Екатерина Gonzalez MD [address] [place] [address] documented as of this encounter Procedures Procedure [...] on filedocumented in this encounter Care Teams Exhibitions And Collections Manager Relationship Specialty Start Date End Date William Lao MD [address] [address] PCP - General Internal Medicine 10/05/22 01/23/25 Marino Bunn DO [address] [place] [address] [place] [address] PCP - General 01/24/25 documented as of this encounter
--- NOTE | 2025-04-20 21:24 | HMH.EDGENADL ---
Discharge Plan Disposition Patient Disposition: Home, Self-Care Condition: Good Prescriptions Prescriptions: New amoxicillin-pot clavulanate 875-125 mg tablet 1 tab PO BID Qty: 20 0RF oxycodone 5 mg tablet 5 mg PO DAILY Qty: 6 0RF Referrals Follow up/Referrals: Marino Bunn DO [Primary Care Provider, [facility]] - See instructions Activity Restrictions/Add. Instructions Additional Instructions/Restrictions: Take Tylenol and ibuprofen [id number] for the next few days. You can take the Oxy codon for breakthrough pain. Take the antibiotics as prescribed for 10 days. Call your dentist to try to get in to an earlier appointment as they will need to remove the tooth. Turn for any signs of infection including redness or swelling fo the face. Clinical Impressions Clinical Impression: Pain, dental, Broken tooth Print Language Print Language: Ecuadorean Discharge ED Provider: Fabi Null Adult HPI General Chief complaint: PAIN Stated complaint: broken tooth lower right side of mouth, pain Time Seen by Provider: 04/20/25 21:19 Mode of Arrival: Ambulatory Source of Information: Patient Description of Symptoms (Recalled from ER Triage Doc. by RN): Report brooken tooth to right bottom, c/o pain History of Present Illness HPI narrative: Patient is an otherwise healthy 19-year-old male who presented to the emergency department with tooth pain. Patient states that he broke his tooth and he called his dentist who was unable to get him into the middle of April. Patient states that he was told to come here to the emergency department. Patient reports some mild swelling around the tooth and pain with eating. Patient denies any fevers. Patient states that he has not been to [facility] in many years. Patient denies any other facial swelling. Patient denies any troubles opening and closing his mouth. Patient denies any trouble swallowing or breathing. Related Data Previous Rx's ?Medication ?Instructions ?Recorded amoxicillin 875 mg-potassium 1 tab PO BID #20 tabs 04/20/25 clavulanate 125 mg tablet oxycodone 5 mg tablet 5 mg PO DAILY #6 tabs 04/20/25 Allergies Allergy/AdvReac Type Severity Reaction Status Date / Time azithromycin (From ZITHROMAX) Allergy Mild Rash Verified 09/02/24 18:22 [facility] Disclaimer: The information contained in this section may have been updated after the patient was seen, as this information can be updated by other users. Medical History Generalized anxiety disorder Fatigue Abnormal stress test Family history of valvular heart disease Family history of ischemic heart disease Abnormal electrocardiogram [ECG] [EKG] Surgical History History of tonsillectomy History of placement of ear tubes Family History Other Family history of kidney stone Fatigue Social History Smoking Status: Current every day smoker tobacco type: e-cigarettes years smoked: 1 second hand exposure: No alcohol intake: never counseling given: No substance use type: denies use counseling given: No current occupational status: employed Travel in the last 8 weeks?: None adopted: No caregiver/support person: No foster care: No household members: family housing: house lives independently: No marital status: single number of children: 0 number of grandchildren: 0 education level: high school Hx Recent Travel: No caffeine: No physical activity: none working smoke detector in home: Yes fire extinguisher in home: Yes carbon monox detector in home: Yes firearms in home: No do you feel safe at home: Yes victim of physical abuse: No victim of emotional abuse: No victim of sexual abuse: No would you like helpful sources: No Have you lived/traveled outside [place] in past 30 days?: No Contact w/someone who lives/traveled outside [place] past 30 days?: No Exposure to someone with infectious disease in past 14 days?: No Do you have a fever (greater than 100.4 F or 38 C)?: No Have you tested positive for COVID-19?: No Exposed to someone with COVID-19 in past 14 days?: No Do you have a sore throat?: No Do you have a cough?: No Do you have any weakness?: No Do you have any diarrhea?: No Are you experiencing any unusual bleeding?: No Do you have any muscle aches/pain?: No Do you have any abdominal pain?: No Are you experiencing loss of taste or smell?: No Other Medical History Have you received the Flu Vaccine for this season: No Have you received the Pneumonia Vaccine: No ROS Obtained: Yes All systems reviewed & no additional complaints except as documented and Yes Systems reviewed as appropriate & no additional complaints except as documented Physical Exam General General appearance: alert and in no apparent distress Head Head exam: atraumatic, normocephalic, normal inspection and other (Broken tooth on bottom right, no [place]-apical abscess) Eye Eye exam: Present normal appearance, PERRL and EOMI; Absent scleral icterus ENT ENT exam: Present normal exam and normal external ear exam Neck Neck exam: Present normal inspection and full ROM Chest Chest inspection: Present normal inspection and symmetric chest wall rise Respiratory Respiratory exam: Present normal lung sounds bilaterally; Absent respiratory distress or wheezes Cardiovascular Cardiovascular exam: Present regular rate, normal rhythm and normal heart sounds Abdominal Exam Abdominal exam: Present soft and distention; Absent tenderness, guarding or rebound Extremities Exam Extremities exam: Present normal inspection and full ROM Back Exam Back exam: Present normal inspection and full ROM Neurological Exam Neurological exam: Present alert and oriented X3 Psychiatric Psychiatric exam: Present normal affect and normal mood Skin Skin exam: Present warm and dry Medical Decision Making Medical Records Medical records reviewed: Yes I reviewed the patient's medical records. Screening: Per USPSTF and CDC recommendations, given the prevalence of disease in our region, it is our hospital?s policy to screen for HIV and viral Hepatitis for all patients aged 18 and over and those with ongoing risk factors. [place] Inquiry Pt receiving controlled substance: No Vital Signs: 04/20/25 20:17 04/20/25 21:41 Temperature 98.7 F 98.7 F Temperature Source Oral Pulse Rate 65 Pulse Rate [Right Brachial] 65 Respiratory Rate 12 14 Blood Pressure 136/93 H Blood Pressure [Right Arm] 136/93 H Blood Pressure Mean [Right Arm] 107 Blood Pressure Source [Right Arm] Automatic Cuff Blood Pressure Position [Right Arm] Sitting 02 Sat by Pulse Oximetry 97 Oxygen Delivery Method Room Air Lab Data Lab results reviewed: Yes I reviewed the patient's lab results. Orders (Tests/Meds): ED MEDICATIONS Discontinued Medications Generic Name Dose Route Start Last Admin Trade Name Freq PRN Reason Stop Dose Admin Acetaminophen 1,000 mg 04/20/25 21:31 04/20/25 21:43 Acetaminophen 500mg Tab PO 04/20/25 21:32 1,000 mg ONCE ONE Administration Ibuprofen 800 mg 04/20/25 21:32 04/20/25 21:43 Ibuprofen 800 Mg Tablet PO 04/20/25 21:33 800 mg ONCE ONE Administration Oxycodone HCl 5 mg 04/20/25 21:32 04/20/25 21:43 Oxycodone 5mg Immediate Release Tablet PO 04/20/25 21:33 5 mg ONCE ONE Administration Medical Decision Narrative: Patient is an otherwise healthy 19-year-old male who presents to the emergency department with teeth pain and a broken tooth. On arrival, patient was hemodynamically stable with unremarkable vital signs. Differential includes but not limited to: Broken tooth, periapical abscess, facial abscess, poor dentition, amongst others. On exam, patient had a single broken tooth on the bottom right. There is no evidence of periapical abscess. Patient had no trismus on exam patient had no submandibular swelling. Patient had no facial swelling or facial redness. No concern for Prudencio's or facial cellulitis. I offered patient a dental block for pain and patient declined. Patient was given an oxycodone Tylenol and Motrin in the emergency department. Patient was sent with Augmentin and a short course of oxycodone and advised to take Tylenol Motrin. Patient was advised to call his dentist tomorrow to help with further pain management and to try to get in sooner. Return precautions were discussed the patient was otherwise discharged home in stable condition. Critical Care Critical Care Time Critical Care Time: No
[2025-04-20 21:41] VITALS: BP 136/93; PULSE 65; RESP 14; TEMP 37.1; O2SAT 97
[2025-04-20] MEDS: IBUPROFEN 800 MG TABLET PO (21:43)
[2025-04-20] MEDS: ACETAMINOPHEN 500MG TAB 1000 MG PO (21:43)
[2025-04-20] MEDS: OXYCODONE 5MG IMMEDIATE RELEASE TABLET 5 MG PO (21:43)
== END 2025-04-20 21:47 | disposition home or self-care (01) ==
PROVIDERS: Emergency Provider Student in an Organized Health Care Education/Training Program; PCP Internal Medicine
DX: S02.5XXA Fracture of tooth (traumatic), initial encounter for closed fracture (principal); F17.290 Nicotine dependence, other tobacco product, uncomplicated; X58.XXXA Exposure to other specified factors, initial encounter
CPT/HCPCS: 99282; 99283